=== PATIENT | male | born 1945 | race Caucasian/White ===

== ENCOUNTER → 2017-07-24 | Outpatient (CLI) | payer MEDICARE ==
[2017-07-24 10:29] LABS: CH 31.4; CHCM 32.5; HCT 46.2 % (39.0-53.0); HDW 2.47; HGB 15.7 gm/dL (13.0-17.5); MCV 96.9 fL (80.0-100.0); Mean Platelet Volume 7.5; RBC 4.77 m/uL (4.30-5.90); RDW 12.1 % (11.5-15.5); WBC 5.6 k/uL (3.8-10.6)
[2017-07-24 12:13] LABS: ALT 36 U/L (21-72); AST 22 U/L (17-59); Alkaline Phosphatase 64 U/L (38-126); Anion Gap 8 mmol/L; Blood Urea Nitrogen 16 mg/dL (9-20); Calcium 9.3 mg/dL (8.4-10.2); Carbon Dioxide 26 mmol/L (22-30); Chloride 104 mmol/L (98-107); Cholesterol 139 mg/dL (<200); Glucose 183 mg/dL (74-99); HDL Cholesterol 51 mg/dL (40-60); Non-African American GFR(MDRD) >60 (>60 ml/min/1.73 sqM); Potassium 4.9 mmol/L (3.5-5.1); Sodium 138 mmol/L (137-145); Total Bilirubin 0.6 mg/dL (0.2-1.3); Total Protein 6.5 g/dL (6.3-8.2)
[2017-07-24 12:41] LABS: Hemoglobin A1C 7.3 % (4.2-6.1)
[2017-07-24 16:40] LABS: Urine Creatinine 136.3 mg/dL
== END | disposition home or self-care (01) ==
LOC: LABWHC1 09:27
PROVIDERS: ATTEND Internal Medicine
DX: E78.5 Hyperlipidemia, unspecified (principal); E11.9 Type 2 diabetes mellitus without complications; C61 Malignant neoplasm of prostate
CPT/HCPCS: 36415; 80053; 80061; 82043; 82570; 83036; 84153; 85027

== ENCOUNTER → 2018-05-02 | Outpatient (CLI) | payer MEDICARE ==
--- NOTE | 2018-05-02 16:13 | CT ---
EXAMINATION TYPE: CT abdomen pelvis w con DATE OF EXAM: 05/02/2018 COMPARISON: 05/07/2016 and dictation without images for comparison of 10/25/2008. HISTORY: Patient has no complaints at time of study. Increased PSA. CT DLP: 1220.3 mGycm Automated exposure control for dose reduction was used. TECHNIQUE: Helical acquisition of images was performed from the lung bases through the pelvis. CONTRAST: Performed with Oral Contrast and with IV Contrast, patient injected with 100 mL of Isovue 300. FINDINGS: LUNG BASES: There multifocal areas of linear bandlike density at the lung bases that may represent ch ronic atelectasis or pleural parenchymal scarring. No suspicious pulmonary nodule at the lung bases. No focal consolidation. LIVER/GB: No new focal hepatic lesion or intrahepatic biliary ductal dilatation. Multiple layering ga llstones are seen dependently within the gallbladder body and neck. No intrahepatic or extrahepatic b iliary ductal dilatation. No pericholecystic fluid or right upper quadrant fat stranding. PANCREAS: Cystic pancreatic body lesion measuring 1.1 cm is unchanged in comparison to prior reports of 2008 and therefore most compatible with a benign etiology such as a side branch IPMN. There are fe w a grade hepatic parenchymal calcifications and mild pancreatic parenchymal atrophy on the basis of chronic pancreatitis. No peripancreatic fluid collection or peripancreatic fat stranding is seen. No abnormal pancreatic enhancement or ductal dilatation. SPLEEN: No splenomegaly or abnormal enhancement. Small benign splenule seen posterior and superior to the [place] spleen. ADRENALS: No nodularity or thickening is seen. KIDNEYS: The kidneys enhance and excrete symmetrically other than a fluid attenuated cortically-based left midpole 8mm renal cysts. Nonobstructing right lower pole 5 mm calculus and 2 mm left upper pole nonobstructing calculus are noted. There are few left renal sinus cysts and other scattered hypoatte nuated cortically based renal lesions that are too small to accurately characterize. No uroepithelial thickening is seen. FREE AIR: No pneumoperitoneum visualized. ADENOPATHY: The largest left superficial inguinal lymph node measures 1.1 cm in short axis and is un changed from the exam of 05/07/2016 containing a regular appearing fatty hilum, low index of suspicion . Multiple other left superficial inguinal lymph nodes are seen that are prominent but nonenlarged al so containing fatty sherri. No pelvic sidewall, external iliac chain, or internal iliac chain adenopath y are seen. No local adenopathy around the prosthetic bed. No suspicious periaortic adenopathy is see n. No mesenteric enlarged lymph nodes are noted. REPRODUCTIVE ORGANS: There is surgical absence of the prostate gland with numerous surgical sutures i n the prosthetic bed. No focal nodule is seen within the prostatic bed to suggest recurrence. There i s a small fat filled left inguinal hernia. URINARY BLADDER: There is very mild bilateral posterior wall urinary bladder thickening measuring up to 5 mm on the left and 4 mm on the right near the ureterovesicular junctions. These are marked on s eries 9 image 72. OSSEOUS STRUCTURES: Punctate sclerotic foci within the right iliac bone on series 3 image 112 and lef t anterior sacral ala are unchanged from the prior of 05/07/2016. Moderate degenerative changes of the femoral acetabular joints and mild multilevel degenerative changes of the thoracolumbar spine as vis ualized are noted without suspicious osseous lesion. There is a very mild levoscoliotic curvature of the lumbar spine that may be positional in nature. BOWEL: There is colonic wall thickening that is long segment of the sigmoid colon with numerous sigm oid diverticuli no pericolonic fat stranding. Findings likely and most commonly related to sequela of chronic diverticulitis. Appendix is contrast-filled and within normal limits. No dilated large or sm all bowel. OTHER: Calcific atheromatous changes of the abdominal aorta and its branches are moderate. IMPRESSION: 1. NO EVIDENCE OF SOFT TISSUE NODULARITY WITHIN THE PROSTHETIC BED TO INDICATE LOCAL RECURRENCE, NO R ETROPERITONEAL OR INTRA-ABDOMINAL/PELVIC ADENOPATHY. LARGEST LEFT SUPERFICIAL INGUINAL LYMPH NODE IS UNCHANGED FROM THE PRIOR EXAM AND CONTAINS A REGULAR FATTY SHERRI WITH LOW INDEX OF SUSPICION. 2. DEGENERATIVE CHANGES OF THE OSSEOUS STRUCTURES WITH NO SUSPICIOUS OSSEOUS LESION IDENTIFIED. 3. VERY MILD THICKENING WITHIN THE POSTERIOR URINARY BLADDER WALL NEAR THE URETEROVESICULAR JUNCTIONS . THIS COULD BE FURTHER EVALUATED WITH DIRECT VISUALIZATION IF THERE IS FURTHER CLINICAL CONCERN. 4. STABLE CYSTIC PANCREATIC NEOPLASM DATING BACK TO 2008, THEREFORE TYPICALLY BENIGN. 5. NONOBSTRUCTING NEPHROLITHIASIS.
--- NOTE | 2018-05-02 16:15 | NM ---
EXAMINATION TYPE: NM bone scan whole body DATE OF EXAM: 05/02/2018 COMPARISON: CT abdomen pelvis 05/02/2018 HISTORY: Prostate carcinoma Delayed whole-body scanning was performed following the injection of 23.8 mCi Tc 99m MDP. Images acq uired 3 hours post injection. FINDINGS: Soft tissue uptake is normal. Uptake within the feet, ankles, knees, shoulders, sternoclavicular join ts is likely degenerative. No areas of abnormal increased or decreased radiopharmaceutical uptake to suggest metastatic disease. IMPRESSION: Degenerative changes.
== END | disposition home or self-care (01) ==
LOC: RADNMMAIN 11:12
PROVIDERS: ATTEND Urology
DX: C61 Malignant neoplasm of prostate (principal); M47.9 Spondylosis, unspecified; N32.89 Other specified disorders of bladder; D13.6 Benign neoplasm of pancreas; N20.0 Calculus of kidney
CPT/HCPCS: 74177; 36415; 78306; A9503; Q9967

== ENCOUNTER → 2018-05-02 | Outpatient (CLI) | payer MEDICARE ==
[2018-05-02 11:31] LABS: Anion Gap 8 mmol/L; Blood Urea Nitrogen 24 mg/dL (9-20); Calcium 9.6 mg/dL (8.4-10.2); Carbon Dioxide 26 mmol/L (22-30); Chloride 106 mmol/L (98-107); Glucose 196 mg/dL (74-99); Potassium 4.7 mmol/L (3.5-5.1); Sodium 140 mmol/L (137-145)
[2018-05-02 12:01] LABS: Prostate Specific Antigen 0.33 ng/mL (0.00-4.00)
[2018-05-02 18:48] LABS: Hemoglobin A1C 7.6 % (4.0-6.0)
== END | disposition home or self-care (01) ==
LOC: LABWHC1 10:48
PROVIDERS: ATTEND Internal Medicine
DX: C61 Malignant neoplasm of prostate (principal); E11.9 Type 2 diabetes mellitus without complications
CPT/HCPCS: 36415; 80048; 83036; 84153

== ENCOUNTER → 2018-10-29 | Outpatient (CLI) | payer MEDICARE ==
[2018-10-29 14:49] LABS: Blood Urea Nitrogen 26 mg/dL (9-20)
--- NOTE | 2018-10-29 21:52 | CT ---
EXAMINATION TYPE: CT abdomen pelvis w con DATE OF EXAM: 10/29/2018 COMPARISON: 05/02/2018 and 05/07/2016 HISTORY: 73-year-old male abnormal prior CT TECHNIQUE: Contiguous axial scanning of the abdomen and pelvis following administration of 100 ml Omn ipaque 300 IV contrast. 4 minute and 10 minute delayed images were acquired. Coronal/sagittal recons tructions performed. 3-D reconstruction generated on a dedicated independent workstation. CT DLP: 1839.6 mGycm Automated exposure control for dose reduction was used. FINDINGS: Heart upper limits of normal in size without pericardial effusion. Bands of atelectasis at the lung b ases. No pleural effusion. Liver enlarged measuring 21.5 cm. No focal lesion seen. Portal venous system is patent. Large caliber to the main portal vein and right 1.9 cm of questionable clinical significance. This finding can be seen in the setting of portal venous hypertension. No biliary ductal dilatation. Adrenal glands and spleen appear within normal limits. Numerous tiny calculi layering in the gallbladder. No abnormal gallbladder distention. Redemonstrated 1 cm cystic lesion within the pancreatic neck region, previously measuring 8 mm. It is noted to have measured 1.1 cm on 05/07/2016. Pancreas otherwise shows no gross abnormal. Tiny punctate nonobstructive calculi in both kidneys, approximately 3 on the right measuring up to 5 mm and one on the left measuring 4 mm. Subcentimeter hypodensities in both kidneys redemonstrated, too small for accurate CT characterizatio n, likely cysts. Additional left-sided parapelvic cysts are present. No suspicious filling defects seen within the collecting systems and no suspicious renal lesion ident ified. A short segment of the distal right and left ureters are not opacified. The remainder of the u reters show no suspicious filling defects. No dilated small bowel, free fluid, or free air. No mesenteric or retroperitoneal lymphadenopathy. Mo derate apical scarring calcifications within the abdominal aorta without aneurysm. Normal appendix. Mild stool burden. Lower descending and sigmoid colonic diverticulosis. No pericolon ic inflammatory change. Patulous left inguinal canal redemonstrated. Post surgical changes of prostatectomy and some surgical clips along the external iliac chains from p rior lymph node dissection. No suspicious nodularity in the region of prostatectomy to suggest local recurrence. No pelvic lymphadenopathy or abnormal fluid collection in the pelvis. Prominent left inguinal lymph n ode measures up to 1.2 cm and continues to show fatty hilum. Bones: Mild degenerative changes at the hips. Facet arthropathy lower lumbar spine. Endplate spondylo sis lower thoracic spine. IMPRESSION: 1. STATUS POST PROSTATECTOMY AND SOME SURGICAL CLIPS ALONG THE EXTERNAL ILIAC CHAINS. NO EVIDENCE FOR LOCOREGIONAL RECURRENCE OR SUSPICIOUS LYMPHADENOPATHY OR OSSEOUS LESIONS TO SUGGEST METASTATIC DISEA SE. 2. 1 CM CYSTIC PANCREATIC NECK LESION LARGELY UNCHANGED BACK TO AT LEAST 2016 COMPATIBLE WITH A BENIG N ETIOLOGY. 3. LEFT-SIDED COLONIC DIVERTICULOSIS WITHOUT ACUTE DIVERTICULITIS. HEPATOMEGALY (21.5 CM). CHOLELITHI ASIS. 4. BILATERAL NEPHROLITHIASIS MEASURING UP TO 5 MM. HYPODENSE LESIONS IN BOTH KIDNEYS MEASURING LESS T YAO 1 CM AND ARE TOO SMALL FOR ACCURATE CT CHARACTERIZATION, LIKELY CYSTS. 5. NO SUSPICIOUS RENAL LESION OR SUSPICIOUS FILLING DEFECT ALONG THE COLLECTING SYSTEMS/URETERS. SEGM ENTS OF THE DISTAL MOST URETERS REMAIN UNOPACIFIED LIMITING THEIR ASSESSMENT. NO OBVIOUS ABNORMALITY SEEN.
== END | disposition home or self-care (01) ==
LOC: RADCTMAIN 14:01
PROVIDERS: ATTEND Urology
DX: N20.0 Calculus of kidney (principal); K80.20 Calculus of gallbladder without cholecystitis without obstruction; K57.30 Diverticulosis of large intestine without perforation or abscess without bleeding; N28.89 Other specified disorders of kidney and ureter; R16.0 Hepatomegaly, not elsewhere classified; K86.2 Cyst of pancreas; Z90.79 Acquired absence of other genital organ(s); Z88.1 Allergy status to other antibiotic agents; Z88.8 Allergy status to other drugs, medicaments and biological substances
CPT/HCPCS: 82565; 84520; 74177; Q9967

== ENCOUNTER → 2020-02-25 | Outpatient (CLI) | payer MEDICARE ==
--- NOTE | 2020-02-25 13:12 | CT ---
EXAMINATION TYPE: CT brain wo con DATE OF EXAM: 02/25/2020 HISTORY: recent suspected Cerebral infarction unspecified, new onset ataxia. CT DLP: 862.5 mGycm. Automated Exposure Control for Dose Reduction was Utilized. TECHNIQUE: CT scan of the head is performed without contrast. COMPARISON: None. FINDINGS: There is no acute intracranial hemorrhage or midline shift identified. There is diffuse v entricular and sulcal prominence consistent with diffuse cerebral atrophy. Ventricular prominence sli ghtly out of proportion to degree of sulcal effacement, cannot exclude underlying normal pressure hyd rocephalus. Correlation with old outside CT or MRI would be beneficial. There is low-attenuation in the deep and periventricular white matter consistent with chronic small vessel ischemic change. The globes are intact and the visualized sinuses are clear. IMPRESSION: No acute intracranial hemorrhage or midline shift. There is mild diffuse cerebral atrop hy and mild to moderate chronic small vessel ischemic change noted. If clinical concern for acute st roke persist further investigation with MRI study may BE warranted.
--- NOTE | 2020-02-25 13:52 | US ---
EXAMINATION TYPE: US carotid duplex BILAT DATE OF EXAM: 02/25/2020 COMPARISON: NONE CLINICAL HISTORY: I63.9 Cerebral infarction unspecified. EXAM MEASUREMENTS: RIGHT: Peak Systolic Velocity (PSV) cm/sec ----- Right CCA: 72 ----- Right ICA: 72 ----- Right ECA: 97 ICA/CCA ratio: 1.0 RIGHT: End Diastole cm/sec ----- Right CCA: 8 ----- Right ICA: 13 ----- Right ECA: 10 LEFT: Peak Systolic Velocity (PSV) cm/sec ----- Left CCA: 79 ----- Left ICA: 85 ----- Left ECA: 122 ICA/CCA ratio: 1.1 LEFT: End Diastole cm/sec ----- Left CCA: 11 ----- Left ICA: 18 ----- Left ECA: 10 VERTEBRALS (direction of flow): Right Vertebral: Antegrade Left Vertebral: Antegrade Rhythm: Normal No significant stenosis seen, mild to moderate plaque. ICA's dive at 90 degree angle. Technically dif ficult. Suboptimal study due to tortuosity of carotid vessels per technologist. Grayscale images show mild to moderate peripheral plaque centered near bilateral carotid bulbs greatest on the left. Velocity krysta urements and ratios in the visualized portion of both internal carotid arteries is felt within normal limits. IMPRESSION: Suboptimal study without convincing ultrasound evidence for hemodynamically significant stenosis in either internal carotid artery area Criteria for Assigning % of Stenosis / Diameter reduction (Estimation based on the indirect measurements of the internal carotid artery velocities (ICA PSV). 1. Normal (no stenosis)=ICA PSV < 125 cm/s: ratio < 2.0: ICA EDV<40 cm/s. 2. Less than 50% stenosis=ICA PSV < 125 cm/s: ratio < 2.0: ICA EDV<40 cm/s. 3. 50 to 69% stenosis=ICA PSV of 125 to 230 cm/s: ration 2.0 ? 4.0: ICA EDV 40-100 cm/s. 4. Greater than 70% stenosis to near occlusion= ICA PSV > 230 cm/s: ratio > 4.0: ICA EDV > 100 cm/s. 5. Near occlusion= ICA PSV velocities may be low or undetectable: variable ratio and ICA EDV. 6. Total occlusion=unable to detect flow.
== END | disposition home or self-care (01) ==
LOC: RADCTMAIN 12:19
PROVIDERS: ATTEND Internal Medicine
DX: G31.1 Senile degeneration of brain, not elsewhere classified (principal); I63.9 Cerebral infarction, unspecified
CPT/HCPCS: 70450; 93880

== ENCOUNTER → 2020-03-04 | Outpatient (CLI) | payer MEDICARE ==
--- NOTE | 2020-03-22 16:38 | EM ---
EVENT MONITOR FOURTEEN-DAY EVENT MONITOR: This study was conducted between 03/04/2020 and 03/18/2020. It shows normal sinus rhythm. There were episodes of sinus tachycardia. Frequent PVCs, including ventricular bigeminy and trigeminy, are also noted. There were non-conducted PACs noted. There was first-degree AV block. There were episodes of sinus bradycardia. There was second- degree AV block of Wenckebach type. CONCLUSIONS: Event monitor shows normal sinus rhythm, frequent ventricular ectopy, significant sinus bradycardia, non-conducted PACs and second-degree heart block. MMODL / IJN: [id number] /
== END | disposition home or self-care (01) ==
LOC: RADECHMAIN 11:54
PROVIDERS: ATTEND Internal Medicine
DX: R00.1 Bradycardia, unspecified (principal); I44.1 Atrioventricular block, second degree; I63.9 Cerebral infarction, unspecified
CPT/HCPCS: 93270

== ENCOUNTER 2020-04-06 06:05 | Day surgery (SDC) | payer MEDICARE, OTHER ==
[2020-04-05 11:55] VITALS: BMI 27.8
[~2020-04-06 06:05] MED LIST: Pre Op ABX Message 1 EACH MISC MISCELLANE ONE; TETRACAINE 0.5% OPHTH (PF) DROPS 4 ML BTL OP ONE
[2020-04-06 06:43] VITALS: TEMP 97.8
[2020-04-06] MEDS: CYCLOPENTOLATE 1% OPHTH SOLN 2 ML BTL OP ONE ×3 (06:44→07:05)
[2020-04-06] MEDS: PHENYLEPHRINE 2.5% OPHTH DRP 2ML OP NR ×3 (06:49→07:09)
[2020-04-06 07:04] LABS: Glucose,Whole Blood 178 mg/dL (75-99)
[2020-04-06] MEDS: LACTATED RINGERS 1,000 ML IV SCH ×2 (07:06→07:33)
[2020-04-06] MEDS ORDERED: MIDAZOLAM 2 MG/2 ML VIAL IVP ONE (07:21)
[2020-04-06] MEDS ORDERED: MIDAZOLAM 2 MG/2 ML VIAL ONE (07:30)
[2020-04-06] MEDS ORDERED: fentaNYL (PF) 50 MCG/ML 2 ML AMP ONE (07:30)
[2020-04-06] MEDS ORDERED: BALANCED SALT IRRIG SOLN COMB2 15 ML IRRIG.SOLN IRRIGATION ONE ×2 (07:34→07:53)
[2020-04-06] MEDS ORDERED: LIDOCAINE 1% (PF) 10MG/ML VIAL MISCELLANE ONE ×2 (07:34→07:53)
[2020-04-06] MEDS ORDERED: DUOVISC KIT (GREEN BOX) INTRAOCULA ONE ×2 (07:42→07:53)
[2020-04-06] MEDS ORDERED: TRYPAN BLUE 0.06% SYRINGE 0.5 ML SYRINGE INTRAOCULA ONE ×3 (07:43→08:06)
[2020-04-06] MEDS ORDERED: EPINEPHrine (PF) 0.3 ML in BALANCED SALT IRRIG SOLN COMB2 500 ML IRRIGATION ONE (07:56)
[2020-04-06] MEDS: TOBRAMYCIN 0.3% OPHTH DROPS 5 ML BTL RIGHT EYE PRN ×3 (08:06→08:27)
[2020-04-06] MEDS: TIMOLOL 0.5% OPHTH DROPS 5 ML BTL OP ONE ×3 (08:07→08:27)
[2020-04-06] MEDS ORDERED: ATROPINE OPHTH SOLN 1% 5ML BTL RIGHT EYE ONE (08:14)
[2020-04-06] MEDS ORDERED: HYALURONATE SODIUM INTRAOCULAR 1 EACH SYRINGE (10MG/ML) INTRAOCULA ONE (08:17)
--- NOTE | 2020-04-06 08:29 | P.OP ---
Date of Procedure: 04/06/20 Preoperative Diagnosis: NS & CS & glaucoma & reg astigmatism Postoperative Diagnosis: same Procedure(s) Performed: PIOL & iStent Implants: [id number] & iStent Anesthesia: MAC Surgeon: Dillon Mcqueen Estimated Blood Loss (ml): 0 Pathology: none sent Condition: stable Disposition: same day Indications for Procedure: blurry vision and glaucoma Operative Findings: No complications
[2020-04-06 08:38] VITALS: RESP 16
[2020-04-06 08:49] VITALS: BP 150/80; PULSE 59
--- NOTE | 2020-04-07 10:35 | OP ---
OPERATIVE REPORT DATE OF SURGERY: April 06, 2020. PROCEDURE: Phacoemulsification of cataract and intraocular lens implant of the right eye with eye stent implantation, right eye. PREOPERATIVE DIAGNOSES: Nuclear sclerosis cortical sclerosis, regular astigmatism and primary open-angle glaucoma mild stage. SURGEON: Dr. Dillon Mcqueen. ANESTHESIA: MAC. ESTIMATED BLOOD LOSS: 0.5 mL. SPECIMEN: Taken none. NARRATIVE: After obtaining the appropriate consent, the patient was brought to the operating room. There he was asked to sit upright and the axis 0 and 180 degrees were identified and marked with a gentian mason marker. He was then placed in the proper supine position under cardiac monitoring and then prepped and draped in the usual sterile manner. He was approached from his right temporal side. Using previously acquired corneal topography information, the axis of 162 degrees was identified and marked with a corneal marking instrument. At the 11 o'clock position, a 1.1 mm MVR blade was used to create a paracentesis port. Through this opening 1% Xylocaine MPF 50 50 mix of balanced salt solution was injected into the anterior chamber. This was followed by installation of Trypan blue which was allowed to stay in the eye for approximately 1 minute. This was irrigated away with balanced salt solution and the anterior chamber was then stabilized using Viscoat. At the 9 o'clock position, a 2.75 mm martina keratome was used to create a self-sealing corneal flap incision in a Langerman's fashion. The patient was then asked to rotate his head approximately 45 degrees to his left and a gonio prism was placed on the patient's cornea. Identification of the trabecular meshwork was easily made due to the Trypan blue and a glaucous model GTS [id number] L eye stent was advanced across the anterior chamber and imbedded into the Schlemm's canal. The patient was then returned to the normal supine position. Additional Viscoat was used to stabilize the capsular bag. A 5.5 mm Bandar ring was used to place a nathaly on the patient's cornea centered over the Purkinje reflex. A cystotome was then introduced to begin a continuous tear capsulorrhexis which was completed using the Utrata forceps. Care was taken to ensure that the size of the rhexis was at least the size of the nathaly placed on the patient's cornea. Hydrodissection and hydrodelineation of the lens were accomplished with balanced salt solution. Phacoemulsification of the lens utilizing phaco chop was accomplished in 18.57 seconds at 18% power. Additional Xylocaine MPF was instilled into the anterior chamber. This was followed by removal of the remaining cortex under irrigation aspiration as well as careful polishing of the posterior capsule in capsule vacuum mode. Provisc was then used to stabilize the capsular bag and using both Jeff Davis and Pepose capsule polishing instruments were introduced to remove as much of the remaining lens material from the equator and the anterior leaflets of the capsular bag. Once this was accomplished, the temporal incision was enlarged slightly with a martina keratome and a Bausch [employer] Lomb [id number] true line intraocular lens of 17 diopters by 1.25 diopters was inserted into the capsular bag without difficulty. The lens was spun approximately 270 degrees to ensure no remaining lens tissue was present and was finally aligned with the previously aligned gary of the 162 degree axis placed at the beginning of the case. All remaining viscoelastic was removed from in and around the intra-ocular lens and the body of the lens was tamponade against the posterior capsule to ensure rotational stability. The eye was then brought to normal intraocular pressure through the paracentesis port and the incisions were confirmed watertight and dried with a Weck-shay sponge and secured with ReSure over both wounds. He then received 2 drops of 0.5% timolol, 2 drops of tobramycin 0.3% and 1% atropine. He was then lightly patched and shielded in the usual manner. There were no complications from the procedure. He tolerated the procedure well, was returned to outpatient recovery in good condition. MMMADDI / IJN: [id number] / CHRISTOPHER
== END 2020-04-06 09:11 | disposition home or self-care (01) ==
LOC: OR 06:05
PROVIDERS: ATTEND Ophthalmology
DX: H25.13 Age-related nuclear cataract, bilateral (principal); H25.013 Cortical age-related cataract, bilateral; H40.1331 Pigmentary glaucoma, bilateral, mild stage; H35.3131 Nonexudative age-related macular degeneration, bilateral, early dry stage; H40.001 Preglaucoma, unspecified, right eye; H21.233 Degeneration of iris (pigmentary), bilateral; H52.13 Myopia, bilateral; H52.4 Presbyopia; H52.229 Regular astigmatism, unspecified eye; E11.9 Type 2 diabetes mellitus without complications; I10 Essential (primary) hypertension; M19.90 Unspecified osteoarthritis, unspecified site; I69.354 Hemiplegia and hemiparesis following cerebral infarction affecting left non-dominant side; E78.00 Pure hypercholesterolemia, unspecified; Z85.46 Personal history of malignant neoplasm of prostate; Z87.891 Personal history of nicotine dependence; Z97.3 Presence of spectacles and contact lenses; Z79.82 Long term (current) use of aspirin; Z79.84 Long term (current) use of oral hypoglycemic drugs; Z79.899 Other long term (current) drug therapy; Z88.1 Allergy status to other antibiotic agents; Z88.8 Allergy status to other drugs, medicaments and biological substances; Z90.89 Acquired absence of other organs; Z98.890 Other specified postprocedural states; Z87.442 Personal history of urinary calculi; Z83.518 Family history of other specified eye disorder; Z80.0 Family history of malignant neoplasm of digestive organs; Z83.3 Family history of diabetes mellitus; Z82.49 Family history of ischemic heart disease and other diseases of the circulatory system; Z82.3 Family history of stroke
CPT/HCPCS: 0191T; 66984

== ENCOUNTER → 2020-07-28 | Outpatient (CLI) | payer MEDICARE ==
[2020-07-28 08:08] LABS: HCT 46.3 % (39.0-53.0); HGB 15.7 gm/dL (13.0-17.5); MCH 32.8 pg (25.0-35.0); MCHC 33.9 g/dL (31.0-37.0); MCV 96.7 fL (80.0-100.0); Mean Platelet Volume 8.2; Platelet Count 199 k/uL (150-450); RBC 4.79 m/uL (4.30-5.90); RDW 12.1 % (11.5-15.5); WBC 5.4 k/uL (3.8-10.6)
[2020-07-28 08:19] LABS: Appearance,Urine Clear (Clear); Bilirubin,Urine Negative (Negative); Blood,Urine Negative (Negative); Color,Urine Light Yellow; Glucose,Urine (UA) Negative (Negative); Ketones,Urine Negative (Negative); Leukocyte Esterase,Urine Negative (Negative); Nitrite,Urine Negative (Negative); Protein,Urine Negative (Negative); Specific Gravity,Urine 1.006 (1.001-1.035); Urobilinogen,Urine <2.0 mg/dL (<2.0)
[2020-07-28 11:35] LABS: African American GFR (CKD) 96.5 (60.0-200.0); Albumin 4.4 g/dL (3.80-4.90); Albumin/Globulin Ratio 2.1 (1.60-3.17); Anion Gap 9.4 mmol/L (4.00-12.00); BUN/Creat Ratio 23.33 Ratio (12.00-20.00); Calcium 9.6 mg/dL (8.7-10.3); Carbon Dioxide 26.6 mmol/L (21.6-31.8); Globulin 2.1 g/dL (1.6-3.3); Non-African American GFR(CKD) 83.3 (60.0-200.0); Potassium 4.5 mmol/L (3.5-5.5); Prostate Specific Antigen 0.5 ng/mL (0.0-6.5); Total Bilirubin 0.7 mg/dL (0.2-1.2); Total Protein 6.5 g/dL (6.2-8.2)
[2020-07-28 18:02] LABS: Hemoglobin A1C 6.9 % (4.0-6.0)
== END | disposition home or self-care (01) ==
LOC: LABWHC1 07:25
PROVIDERS: ATTEND Internal Medicine
DX: I10 Essential (primary) hypertension (principal); E11.9 Type 2 diabetes mellitus without complications; C61 Malignant neoplasm of prostate; E78.5 Hyperlipidemia, unspecified
CPT/HCPCS: 36415; 80053; 81003; 83036; 84153; 84443; 85027

== ENCOUNTER → 2020-08-11 | Outpatient (CLI) | payer MEDICARE ==
[2020-08-11 22:52] LABS: Chol/HDL Ratio 2.87; LDL Cholesterol,Calculated 99.4 mg/dL (0.0-131.0); VLDL Calculation 12.6 mg/dL (5.00-40.00)
== END | disposition home or self-care (01) ==
LOC: LABWHC1 11:21
PROVIDERS: ATTEND Internal Medicine
DX: E78.5 Hyperlipidemia, unspecified (principal); E11.9 Type 2 diabetes mellitus without complications
CPT/HCPCS: 36415; 80061

== ENCOUNTER → 2020-12-20 | Outpatient (CLI) | payer MEDICARE, OTHER | END | disposition home or self-care (01) | LOC: LABWHC1 07:30 | PROVIDERS: ATTEND Internal Medicine | DX: Z01.812 Encounter for preprocedural laboratory examination (principal); Z20.822 Contact with and (suspected) exposure to COVID-19 | CPT/HCPCS: U0003; C9803; U0005 ==

== ENCOUNTER → 2021-08-18 | Outpatient (CLI) | payer MEDICARE ==
[2021-08-18 11:10] LABS: Appearance,Urine Clear (Clear); Bilirubin,Urine Negative (Negative); Blood,Urine Negative (Negative); Color,Urine Yellow; Glucose,Urine (UA) Negative (Negative); Hyaline Casts,Urine 1 /lpf (0-2); Ketones,Urine Negative (Negative); Leukocyte Esterase,Urine Negative (Negative); Mucus,Urine Rare /hpf; Nitrite,Urine Negative (Negative); PH, Urine 5.5 (5.0-8.0); Protein,Urine 1+ (Negative); RBC,Urine <1 /hpf (0-5); Specific Gravity,Urine 1.023 (1.001-1.035); Urobilinogen,Urine <2.0 mg/dL (<2.0)
[2021-08-18 16:38] LABS: HCT 45.2 % (39.6-50.0); HGB 14.6 g/dL (13.0-17.0); MCH 31.7 pg (27.0-32.0); MCHC 32.3 g/dL (32.0-37.0); Platelet Count 193 X 10*3/uL (140-440); RBC 4.61 X 10*6/uL (4.40-5.60); RDW 12.2 % (11.5-14.5); WBC 4.75 X 10*3/uL (4.50-10.00)
[2021-08-18 17:53] LABS: African American GFR (CKD) 100.6 (60.0-200.0); Albumin 4.4 g/dL (3.8-4.9); Albumin/Globulin Ratio 2.1 (1.60-3.17); Anion Gap 11.1 mmol/L (4.00-12.00); BUN/Creat Ratio 20.5 Ratio (12.00-20.00); Blood Urea Nitrogen 16.4 mg/dL (9.0-27.0); Calcium 9.3 mg/dL (8.7-10.3); Carbon Dioxide 25.9 mmol/L (21.6-31.8); Chol/HDL Ratio 2.65 Ratio; Globulin 2.1 g/dL (1.6-3.3); HDL Cholesterol 59.9 mg/dL (40.00-60.00); LDL Cholesterol,Calculated 86.5 mg/dL (0.0-131.0); Non-African American GFR(CKD) 86.8 (60.0-200.0); Potassium 4.5 mmol/L (3.5-5.5); Prostate Specific Antigen 0.5 ng/mL (0.00-6.50); Total Bilirubin 0.4 mg/dL (0.30-1.20); Total Protein 6.5 g/dL (6.2-8.2); Triglycerides 62.9 mg/dL (0.00-149.00); VLDL Calculation 12.58 mg/dL (5.00-40.00)
== END | disposition home or self-care (01) ==
LOC: LABWHC1 09:06
PROVIDERS: ATTEND Internal Medicine
DX: C61 Malignant neoplasm of prostate (principal); E11.9 Type 2 diabetes mellitus without complications; E78.5 Hyperlipidemia, unspecified
CPT/HCPCS: 36415; 80053; 80061; 81001; 82043; 82570; 83036; 84153; 85027

== ENCOUNTER 2022-06-22 10:55 | Inpatient (IN) | payer MEDICARE ==
--- NOTE | 2022-06-22 11:14 | ED ---
General Adult HPI - General Chief complaint: Dizziness Stated complaint: dizziness,facial numbness Time Seen by Provider: 06/22/22 11:04 Source: patient, RN notes reviewed, old records reviewed Mode of arrival: ambulatory Limitations: no limitations - History of Present Illness Initial comments: 77-year-old male history of previous CVA presenting for evaluation of dizziness, lightheadedness and low heart rate. Patient states that yesterday he noted that his heart rate was in the 30s. He had seen his primary care provider and EKG performed which showed normal sinus rhythm according to the patient. No associated chest pain, the patient states she's had intermittent symptoms for about one week. No prior history of cardiac disease. - Related Data Home Medications Medication Instructions Recorded Confirmed Atorvastatin [Lipitor] 20 mg PO DAILY 05/23/16 04/06/20 Enalapril [Vasotec] 20 mg PO DAILY 05/23/16 04/06/20 Pioglitazone HCl [Actos] 15 mg PO HS 05/23/16 04/06/20 allopurinoL [Zyloprim] 100 mg PO DAILY 05/23/16 04/06/20 Aspirin [Adult Low Dose Aspirin EC] 81 mg PO DAILY 04/05/20 04/06/20 Clopidogrel [Plavix] 75 mg PO DAILY 04/05/20 04/06/20 Occuvite 1 cap PO BID 04/05/20 04/06/20 amLODIPine BESYLATE 10 mg PO HS 04/05/20 04/06/20 metFORMIN HCL [Glucophage] 1,000 mg PO BID 04/05/20 04/06/20 Allergies Allergy/AdvReac Type Severity Reaction Status Date / Time levofloxacin [From Levaquin] Allergy Dyspnea Verified 06/22/22 11:02 mefloquine HCl [From Lariam] Allergy NIGHTMARES Verified 06/22/22 11:02 ofloxacin [From Floxin] Allergy JOINT PAIN Verified 06/22/22 11:02 OMANI PEPPERS Allergy Dyspnea,STR Uncoded 06/22/22 11:02 IDOR Review of Systems ROS Statement: Those systems with pertinent positive or pertinent negative responses have been documented in the HPI. ROS Other: All systems not noted in ROS Statement are negative. Past Medical History Past Medical History: Cancer, CVA/TIA, Diabetes Mellitus, Hypertension, Osteoarthritis (OA), Prostate Disorder Additional Past Medical History / Comment(s): PROSTATE CANCER, KIDNEY STONE History of Any Multi-Drug Resistant Organisms: None Reported Past Surgical History: Adenoidectomy, Orthopedic Surgery, Tonsillectomy Additional Past Surgical History / Comment(s): PROSTATE SURGERY, LEFT KNEE ARTHROSCOPIC Past Anesthesia/Blood Transfusion Reactions: No Reported Reaction Past Psychological History: No Psychological Hx Reported Smoking Status: Current every day smoker, Current some day smoker Past Alcohol Use History: Occasional Past Drug Use History: None Reported - Past Family History Mother Family Medical History: No Reported History General Exam Limitations: no limitations General appearance: alert, in no apparent distress Head exam: Present: atraumatic, normocephalic Eye exam: Present: normal appearance, PERRL ENT exam: Present: normal exam Neck exam: Present: normal inspection. Absent: tenderness, meningismus Respiratory exam: Present: normal lung sounds bilaterally. Absent: respiratory distress, wheezes Cardiovascular Exam: Present: normal rhythm, bradycardia GI/Abdominal exam: Present: soft. Absent: distended, tenderness, guarding Extremities exam: Present: pedal edema Neurological exam: Present: alert, oriented X3, CN II-XII intact Psychiatric exam: Present: normal affect, normal mood Skin exam: Present: warm, dry, intact. Absent: cyanosis Course Vital Signs 06/22/22 10:58 Temperature 98 F Pulse Rate 40 L Respiratory 20 Rate Blood Pressure 207/88 O2 Sat by Pulse 98 Oximetry EKG Findings - EKG Comments: EKG Findings:: EKG: Sinus rhythm first-degree AV block with bigeminy PVC ve ntricular rate of 76, actual rate of 40, UT is prolonged at 272, QRS duration 145, QTC 391 Medical Decision Making - Medical Decision Making 77-year-old male with dizziness, found to be in high-grade heart block, intermittent with sinus rhythm with first-degree AV block. Patient is immediately evaluated by Dr. Corrales in the emergency department. He remains alert with stable but elevated blood pressure. Laboratory testing including lites lites are pending. Dr. Corrales does recommend atropine and dopamine which are administered in the emergency department. He'll be taken urgently to the [facility] for either temporary or permanent pacemaker. Case discussed with Dr. Liriano who will admit and the engineering director Dr. Goss. Critical Care Time Critical Care Time: Yes Total Critical Care Time: 35 Disposition Clinical Impression: Heart block AV complete Disposition: ADMITTED IP TO THIS HOSP Condition: Serious Is patient prescribed a controlled substance at d/c from ED?: No Referrals: Marcelo Chavez III, MD [Primary Care Provider] - 1-2 days Time of Disposition: 11:36
[2022-06-22] MEDS ORDERED: DOPamine DRIP 800 MG in DEXTROSE/WATER 1 250ML.BAG IV ONE (11:21)
[2022-06-22] MEDS ORDERED: NALOXONE 0.4 MG/ML 1 ML VIAL IV PRN (11:26)
[2022-06-22] MEDS ORDERED: ATROPINE SULFATE 0.1 MG/ML 10ML SYRINGE IV STA (11:34)
[2022-06-22] MEDS: SODIUM CHLORIDE 0.9% 1,000 ML IV SCH (11:36)
[2022-06-22 11:45] LABS: Basophils # (A) 0.1 k/uL (0-0.2); Basophils % (A) 1 %; Eosinophils # (A) 0.1 k/uL (0-0.7); Eosinophils % (A) 2 %; HCT 45.6 % (39.0-53.0); HGB 14.7 gm/dL (13.0-17.5); Lymphocytes # (A) 1.5 k/uL (1.0-4.8); Lymphocytes % (A) 24 %; MCH 31.6 pg (25.0-35.0); MCHC 32.3 g/dL (31.0-37.0); MCV 97.8 fL (80.0-100.0); Mean Platelet Volume 8.9; Monocytes # (A) 0.4 k/uL (0-1.0); Monocytes % (A) 6 %; Neutrophils % (A) 65 %; Platelet Count 206 k/uL (150-450); RBC 4.66 m/uL (4.30-5.90); RDW 12.6 % (11.5-15.5); WBC 6.1 k/uL (3.8-10.6)
[2022-06-22 11:57] LABS: INR 0.9 (<1.2); Prothrombin Time 10.2 sec (9.0-12.0)
[2022-06-22 11:59] LABS: Albumin 4.5 g/dL (3.5-5.0); Calcium 9.3 mg/dL (8.4-10.2); Magnesium 1.9 mg/dL (1.6-2.3); Potassium 5.1 mmol/L (3.5-5.1); Total Bilirubin 0.7 mg/dL (0.2-1.3); Total Protein 6.9 g/dL (6.3-8.2)
[2022-06-22] MEDS ORDERED: fentaNYL (PF) 50 MCG/ML 2 ML AMP ONE (12:00)
[2022-06-22] MEDS ORDERED: LIDOCAINE 1% INJ 10MG/ML (30 ML VIAL-PF) SQ ONE ×2 (12:17→20:49)
[2022-06-22] MEDS ORDERED: MIDAZOLAM 2 MG/2 ML VIAL IV ONE ×2 (12:17→20:47)
[2022-06-22] MEDS ORDERED: fentaNYL (PF) 50 MCG/ML 2 ML AMP IV ONE (12:17)
[2022-06-22] MEDS ORDERED: SODIUM CHLORIDE 0.9% 1,000 ML IV ONE (12:18)
[2022-06-22 12:57] LABS: Glucose,Whole Blood 197 mg/dL (70-110)
--- NOTE | 2022-06-22 14:24 | XR ---
EXAMINATION TYPE: XR chest 1V portable DATE OF EXAM: 06/22/2022 COMPARISON: None INDICATION: Dysrhythmia numb, chest pain TECHNIQUE: Single frontal view of the chest is obtained. FINDINGS: The heart size is normal. The pulmonary vasculature is normal. The lungs are clear. IMPRESSION: 1. No acute pulmonary process.
--- NOTE | 2022-06-22 14:38 | P.CNPUL ---
History of Present Illness Consult date: 06/22/22 Requesting physician: Sofi Chaivs Reason for consult: other (Critical care management) Chief complaint: Dizziness nausea numbness History of present illness: Visit very pleasant 77-year-old male patient who follows with Dr. Chavez is his primary care provider. 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 He had been having issues with dizziness and lightheadedness and had been seen by his PCP in no significant findings were noted. Today however he had a significant episode of dizziness with some nausea and some oral circumferential numbness while at home. His daughter was present at the time. He was brought into the emergency room for the same. He was found to be in complete heart block and was subsequently taken to the CV and a temporary right femoral pacemaker was placed. He is set to backup pacing at 50. He was transferred to the intensive care unit for closer observation. The plan is for permanent pacemaker implantation later this evening. He is currently laying flat in bed. Awake and alert in no acute distress. Denies any dizziness, lightheadedness, nausea or chest pain. No palpitations. He is pacing quite often. He has underlying complete heart block still. He is maintaining good O2 saturations in the 90s on room air. He's been afebrile. Chest x-ray revealed no acute pulmonary process. White count 6.1. Hemoglobin 14.7. Sodium 138. Potassium 5.1. BUN 23. Creatinine 1.06. Glucose 173. AST 32. ALT 46. TSH 3.04. Magnesium 1.9. He remains nothing by mouth. He has normal saline at 75 ML's per hour. Review of Systems REVIEW OF SYSTEMS: CONSTITUTIONAL: Denies any recent significant weight loss or weight gain. EYES: Denies change in vision. EARS, NOSE, MOUTH, THROAT: Denies headaches, denies sore throat. CARDIOVASCULAR: Positive for dizziness, nausea, oral circumferential tingling and numbness. RESPIRATORY: Denies shortness of breath, cough, congestion or hemoptysis. GASTROINTESTINAL: Denies change in appetite, denies abdominal pain GENITOURINARY: Denies hematuria, denies infections. MUSKULOSKELETAL: Denies pain, denies swelling. INTEGUMENTARY: Denies rash, denies eczema. NEUROLOGICAL: Denies recent memory loss, no recent seizure activity. PSYCHIATRIC: Denies anxiety, denies depression. HEMATOLOGIC/LYMPHATIC: Denies anemia, denies enlarged lymph nodes. Past Medical History Past Medical History: Cancer, CVA/TIA, Diabetes Mellitus, Hypertension, Osteoarthritis (OA), Prostate Disorder Additional Past Medical History / Comment(s): PROSTATE CANCER, KIDNEY STONE History of Any Multi-Drug Resistant Organisms: None Reported Past Surgical History: Adenoidectomy, Orthopedic Surgery, Tonsillectomy Additional Past Surgical History / Comment(s): PROSTATE SURGERY, LEFT KNEE ARTHROSCOPIC, Past Anesthesia/Blood Transfusion Reactions: No Reported Reaction Past Psychological History: No Psychological Hx Reported Smoking Status: Former smoker Past Alcohol Use History: Occasional Additional Past Alcohol Use History / Comment(s): STARTED SMOKING AT AGE 17 1/2 PPD QUIT SMOKING AT AGE 21 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 Past Drug Use History: None Reported - Past Family History Mother Family Medical History: No Reported History Medications and Allergies Home Medications Medication Instructions Recorded Confirmed Type Atorvastatin [Lipitor] 20 mg PO DAILY 05/23/16 06/22/22 History Enalapril [Vasotec] 20 mg PO DAILY 05/23/16 06/22/22 History Pioglitazone HCl [Actos] 15 mg PO DAILY 05/23/16 06/22/22 History allopurinoL [Zyloprim] 100 mg PO DAILY 05/23/16 06/22/22 History amLODIPine BESYLATE 10 mg PO DAILY 04/05/20 06/22/22 History Cetirizine HCl [Zyrtec] 10 mg PO DAILY 06/22/22 06/22/22 History Fluticasone Nasal [place] [Flonase 1 - 2 spr EA NOSTRIL BID PRN 06/22/22 06/22/22 History Nasal [place]] metFORMIN HCL ER [Glucophage XR] 1,000 mg PO BID 06/22/22 06/22/22 History Allergies Allergy/AdvReac Type Severity Reaction Status Date / Time levofloxacin [From Levaquin] Allergy Dyspnea Verified 06/22/22 13:30 mefloquine HCl [From Lariam] Allergy NIGHTMARES Verified 06/22/22 13:30 ofloxacin [From Floxin] Allergy JOINT PAIN Verified 06/22/22 13:30 NIGERIEN PEPPERS Allergy Dyspnea,STR Uncoded 06/22/22 13:30 IDOR Physical Exam Vitals: Vital Signs Temp Pulse Pulse Resp BP Pulse Ox 06/22/22 14:00 50 L 12 158/66 97 06/22/22 13:00 98.1 F 58 L 13 148/65 96 06/22/22 11:47 46 L 20 177/66 99 06/22/22 11:42 46 L 06/22/22 10:58 98 F 40 L 20 207/88 98 Intake and Output 06/21/22 06/22/22 06/22/22 22:59 06:59 14:59 Intake Total 175 Balance 175 Intake: IV 175 Sodium Chloride 0.9% 1, 75 000 ml @ 75 mls/hr IV . [id number] [facility] Rx#:[id number] Other: Weight 96.3 kg GENERAL EXAM: Alert, very pleasant 77-year-old male patient, on room air, comfortable in no apparent distress. HEAD: Normocephalic. EYES: Normal reaction of pupils, equal size. NOSE: Clear with pink turbinates. THROAT: No erythema or exudates. NECK: No masses, no JVD. CHEST: No chest wall deformity. LUNGS: Equal air entry with no crackles, wheeze, rhonchi or dullness. CVS: S1 and S2 normal with audible murmur, irregular rhythm. ABDOMEN: No hepatosplenomegaly, normal bowel sounds, no guarding or rigidity. SPINE: No scoliosis or deformity SKIN: No rashes CENTRAL NERVOUS SYSTEM: No focal deficits, tone is normal in all 4 extremities. EXTREMITIES: Right temporary venous pacer in place to the femoral vein. There is no peripheral edema. No clubbing, no cyanosis. Peripheral pulses are intact. Results - Laboratory Findings CBC and BMP: 06/22/22 11:15 06/22/22 11:15 PT/INR, D-dimer PT 10.2 sec (9.0-12.0) 06/22/22 11:15 INR 0.9 (<1.2) 06/22/22 11:15 Abnormal lab findings: Abnormal Labs 06/22/22 06/22/22 11:15 12:56 BUN 23 H Glucose 173 H POC Glucose (mg/dL) 197 H - Diagnostic Findings Chest x-ray: image reviewed (No acute pulmonary process) Assessment and Plan Assessment: Dizziness, nausea secondary to complete heart block. Status post temporary venous pacer insertion on 06/22/2022 with plans for permanent pacemaker later this evening. History of hypertension treated with amlodipine and enalapril in the outpatient setting. No beta blockers Diabetes mellitus, type II Hyperlipidemia History of CVA of the right MCA with residual left-sided weakness Smoker of cigars, quit cigarettes 50 years ago Plan: The patient was seen and evaluated Chest x-ray, EKG and labs reviewed Currently stable and on room air Temporary pacemaker in place Plan is for permanent pacemaker implantation later today We will continue to follow and make further recommendations based on his clinical status I have personally seen and examined the patient, performed the documentation and the assessment and plan as written. Number of minutes spent on the visit: 20.
--- NOTE | 2022-06-22 18:49 | P.EPCON ---
Electrophysiology Consult - EP Consult Electrophysiology Consult: This is Dr. Negro dictating an H/P on this patient The patient was interviewed and examined IMPRESSION / ASSESSMENT: Complete heart block with bradycardia symptomatic with dizzy spells Frequent PVCs from the inferoseptal LV, likely posterior medial papillary muscle Slow nonsustained VT from the left ventricle noted in the Violin [employer]. There was no catheter in the LV at that time Type 2 diabetes for over 15 years, hypertension, dyslipidemia Social but daily alcohol consumption PLAN: I discussed this plan with Dr. Corrales and with the patient Dr. Little who is our pathologist here in the hospital Today we will proceed with an externalized pacemaker that'll allow for mobility and a workup for cardio myopathy I would recommend coronary angiography given the wall motion abnormalities on the 2-D echo Subsequently permanent biventricular device implantation in the near future IV antibiotics while the externalized pacemaker is in situ. Patient tolerates Kefzol Lyme titers, C-reactive protein, ESR, JEFFERY level HPI For the last 3 weeks the patient has been complaining of dizzy spells that are fleeting No loss of consciousness These episodes can occur either when he is standing or sitting or even lying down This morning they were quite intense and frequent and he came to the ER. Took his pulse and found that it was under 40 beats a minute Around the same time he has been short of breath on exertion but this is an intermittent symptom He denies and the anginal episodes no chest discomfort with exertion He also denies palpitations but he has felt an irregular rhythm and knows that he has PVCs Past history of type 2 diabetes, hypertension, dyslipidemia and history of CVA ROS: No fever chills or rigors, no cough, phlegm or expectoration, no nausea, vomiting or diarrhea, no hematuria, dysuria, no musculoskeletal complaints, no strokes or seizures, no skin lesions. EXAMINATION: Initially his pulse rate was 140 beats a minute and blood pressure was high at 200 70 88 mmHg afebrile Normal heart sounds irregular REVIEW OF LABS, ECG & MEDICAL DATA Twelve-lead EKG done in the ER shows sinus rhythm right bundle branch block pattern the prolonged WI interval Right bundle branch block type PVCs with QRS fractionation in the latter half of the QRS right superior axis, and S greater than R in V4 through V6 During TVP placement slow nonsustained VT with a right bundle branch block morphology also noted 2-D echo shows mildly reduced LV systolic function with inferior basal, mid inferior and inferoseptal hypokinesis Chest x-ray does not show any evidence for mediastinal lymphadenopathy White count 6.1, hemoglobin 14.7, platelet count 206,000 Sodium 138, potassium 5.1 normal bicarb Creatinine normal at 1.1 Normal troponin Normal TSH 3.0 Normal magnesium 1.9 Home medications include metformin, amlodipine, Actos, Vasotec and atorvastatin 20 mg daily
--- NOTE | 2022-06-22 20:18 | CA ---
Transthoracic Echo Report Name: Doe Little Age: 77 Gender: M : 1945 Exam Date: 06/22/2022 13:07 Exam Location: [facility] Ht (in): 72 Wt (lb): 207 Ordering Physician: Kimi Roy Attending/Referring Phys: [id number], Kirill Information Technology Security Analyst Joceline Cramer RDCS Procedure CPT: Indications: LV function Cardiac Hx: Technical Quality: Fair Contrast 1: Total Dose (mL): Contrast 2: Total Dose (mL): MEASUREMENTS (Male / Female) Normal Values 2D ECHO LV Diastolic Diameter PLAX 4.7 cm 4.2 - 5.9 / 3.9 - 5.3 cm LV Systolic Diameter PLAX 3.4 cm IVS Diastolic Thickness 1.2 cm 0.6 - 1.0 / 0.6 - 0.9 cm LVPW Diastolic Thickness 1.4 cm 0.6 - 1.0 / 0.6 - 0.9 cm LV Relative Wall Thickness 0.6 RV Internal Dim ED PLAX 3.2 cm LVOT Diameter 2.6 cm LA Systolic Diameter LX 3.5 cm 3.0 - 4.0 / 2.7 - 3.8 cm LV Diastolic Volume MOD 4C 173.6 cm??? LV Systolic Volume MOD 4C 85.9 cm??? LV Ejection Fraction MOD 4C 50.5 % LV Diastolic Length 4C 9.3 cm LV Systolic Length 4C 7.3 cm LV Diastolic Volume MOD 2C 159.5 cm??? LV Systolic Volume MOD 2C 93.6 cm??? LV Ejection Fraction MOD 2C 41.3 % LV Diastolic Length 2C 8.3 cm LV Systolic Length 2C 7.4 cm LA Volume 61.9 cm??? 18 - 58 / 22 - 52 cm??? M-MODE Aortic Root Diameter MM 3.7 cm MV E Point Septal Separation 1.3 cm AV Cusp Separation MM 1.7 cm DOPPLER AV Peak Velocity 185.3 cm/s AV Peak Gradient 13.7 mmHg AV Mean Velocity 128.5 cm/s AV Mean Gradient 7.5 mmHg AV Velocity Time Integral 41.5 cm LVOT Peak Velocity 95.5 cm/s LVOT Peak Gradient 3.6 mmHg AV Area Cont Eq pk 2.8 cm??? MV Area PHT 3.3 cm??? Mitral E Point Velocity 92.1 cm/s Mitral A Point Velocity 110.0 cm/s Mitral E to A Ratio 0.8 MV Deceleration Time 228.4 ms MV E' Velocity 5.2 cm/s Mitral E to MV E' Ratio 17.7 FINDINGS Left Ventricle Left ventricular ejection fraction is estimated at 45-50 %. Left ventricular cavity size normal. Moderate concentric left ventricular hypertrophy. Right Ventricle Normal right ventricular size and function. Unable to estimate the right ventricular systolic pressure, no TR jet Right Atrium Normal right atrial size. Left Atrium Mildly increased left atrial volume. Mildly increased left atrial area. No evidence for an atrial septal defect. Mitral Valve Mitral annular calcification. Aortic Valve Trileaflet aortic valve. Focal thickening of the aortic valve cusps. Mild aortic stenosis with a peak gradient of 14 mmHg and a mean gradient of 8 mmHg. Tricuspid Valve Structurally normal tricuspid valve. Pulmonic Valve Structurally normal pulmonic valve. Pericardium Normal pericardium. No pericardial effusion. Aorta Normal size aortic root and proximal ascending aorta. CONCLUSIONS LV is a day upper limits of normal with moderate concentric LVH. Because of bradycardia ejection fraction appears to be lower but probably close to normal range. Aortic valve sclerosis mitral calcification noted mild mitral and tricuspid insufficiency. No pericardial effusion Previewed by: Dr. Escobar Ramirez MD (Electronically Signed) Final Date: 22 June 2022 20:17
[2022-06-22 20:42] LABS: C Reactive Protein <0.5 mg/dL (<1.0)
[2022-06-22] MEDS ORDERED: IV FLUID CONTINUATION 800 ML IV ONE (20:51)
[2022-06-22] MEDS ORDERED: amLODIPine 10 MG TAB PO SCH (21:00)
--- NOTE | 2022-06-22 21:43 | P.EPPROC ---
- EP Procedure Note Electrophysiology Procedure Note: Diagnosis Complete heart block TVP in the right groin and elevated thresholds likely micro-dislodgment Procedure Implantation of an externalized single-chamber pacemaker from the right subclavian vein Conscious sedation Procedure Patient was brought to the EP lab in a fasting state. Written informed consent was obtained prior to the procedure The right pectoral area was prepped and draped as per protocol IV antibiotics administered Venous access in the right axillary vein obtained Sheath placed in the subclavian/SCC Passively placed in the right ventricular apex Excellent thresholds of 0.5 1.5 ms Pacing impedance 800 ohms R waves independently 4-8 mV The leads secured to the skin with 2 sutures around the lead sleeve Biopatch applied Dressing applied Leads and elected to pacemaker generator Programmed to VVI 70 beats a minute 3.5 V at 0.5 ms Generator secured to the skin and dressed TVP from the right groin removed Vascade closure of the right femoral venous puncture site Good hemostasis Plan continue IV antibiotics Switched to carvedilol instead of amlodipine Continue lisinopril Patient underwent EP procedure under conscious sedation/moderate sedation, monitoring of the level of consciousness and physiologic parameters including but not limited to vital signs and oxygenation. Patient tolerated the procedure well without any acute complications. Start time: 2039 sick Stop time: 2134
[2022-06-22] MEDS ORDERED: SODIUM CHLORIDE 0.9% 1,000 ML IV SCH ×2 (21:45)
--- NOTE | 2022-06-22 21:51 | P.PN ---
Progress Note - Text Diagnosis Complete heart block Status post right-sided externalized pacemaker Plan Coronary angiography on Saturday Possible device implant biventricular pacemaker on Saturday or Saturday NPO after lunch on Saturday Continue IV antibiotics 1 g every 8 hours until then No EKG patches over the left pectoral area
[2022-06-22] MEDS: ATORVASTATIN 40 MG TAB PO SCH (22:05)
[2022-06-22] MEDS: lisinopriL 20 MG TAB PO SCH (22:05)
[2022-06-22] MEDS: carvediloL 6.25 MG TAB PO SCH (22:05)
[2022-06-22 22:13] LABS: Glucose,Whole Blood 136 mg/dL (70-110)
--- NOTE | 2022-06-22 22:50 | XR ---
EXAMINATION TYPE: XR chest 1V portable DATE OF EXAM: 06/22/2022 COMPARISON: Today's HISTORY: Pacemaker insertion TECHNIQUE: Single view FINDINGS: There is right axillary pacemaker. Lungs are clear of infiltrate. No heart failure. Heart s ize is normal. There are no hilar masses. Bony thorax is intact. There is a lead over the right ventr icle. IMPRESSION: No active cardiopulmonary disease. No adverse change.
--- NOTE | 2022-06-22 23:03 | P.HPIM ---
History of Present Illness This is a pleasant 77 years old male with past medical history of hypertension, hyperlipidemia, diabetes mellitus, CVA with mild left hemiparesis. He is a patient of Dr. Chavez Patient has been having episodes of weakness and presyncope for about one to 2 months. He checked heart rate 1 time and noticed it was low at 35, he went to see his PCP Dr. Chavez, EKG strip in the office was looking normal. As per patient then was discharge, however once he got home within a day he developed more severe weakness and dizziness and this time he was feeling numbness as well for example numbness around his mouth so he got concerned and decided to come to emergency room. Patient currently denies any chest pain or dyspnea or coughing. No abdominal pain or vomiting or diarrhea, no urinary complaints. No fever. On admission his heart rate was 40-46, currently improved 50-51. The rest of vital signs stable and patient is afebrile. Patient has unremarkable CBC, BMP and liver enzymes. TSH is normal. Chest x-ray: No acute process Review of Systems Review of systems CONSTITUTIONAL: No fever, no malaise, no fatigue. HEENT: No recent visual problems or hearing problems. Denied any sore throat. CARDIOVASCULAR: No orthopnea, PND, no palpitations, no syncope. PULMONARY: No shortness of breath, no cough, no hemoptysis. GASTROINTESTINAL: No diarrhea, no nausea, no vomiting, no abdominal pain. Normoactive bowel sounds. NEUROLOGICAL: No headaches, no weakness, no numbness. HEMATOLOGICAL: Denies any bleeding or petechiae. GENITOURINARY: Denies any burning micturition, frequency, or urgency. MUSCULOSKELETAL/RHEUMATOLOGICAL: Denies any joint pain, swelling, or any muscle pain. ENDOCRINE: Denies any polyuria or polydipsia. Past Medical History Past Medical History: Cancer, CVA/TIA, Diabetes Mellitus, Hypertension, Osteoarthritis (OA), Prostate Disorder Additional Past Medical History / Comment(s): PROSTATE CANCER, KIDNEY STONE History of Any Multi-Drug Resistant Organisms: None Reported Past Surgical History: Adenoidectomy, Orthopedic Surgery, Tonsillectomy Additional Past Surgical History / Comment(s): PROSTATE SURGERY, LEFT KNEE ARTHROSCOPIC Past Anesthesia/Blood Transfusion Reactions: No Reported Reaction Past Psychological History: No Psychological Hx Reported Smoking Status: Current every day smoker, Current some day smoker Past Alcohol Use History: Occasional Past Drug Use History: None Reported - Past Family History Mother Family Medical History: No Reported History Medications and Allergies Home Medications Medication Instructions Recorded Confirmed Type Atorvastatin [Lipitor] 20 mg PO DAILY 05/23/16 06/22/22 History Enalapril [Vasotec] 20 mg PO DAILY 05/23/16 06/22/22 History Pioglitazone HCl [Actos] 15 mg PO DAILY 05/23/16 06/22/22 History allopurinoL [Zyloprim] 100 mg PO DAILY 05/23/16 06/22/22 History amLODIPine BESYLATE 10 mg PO DAILY 04/05/20 06/22/22 History Cetirizine HCl [Zyrtec] 10 mg PO DAILY 06/22/22 06/22/22 History Fluticasone Nasal [place] [Flonase 1 - 2 spr EA NOSTRIL BID PRN 06/22/22 06/22/22 History Nasal [place]] metFORMIN HCL ER [Glucophage XR] 1,000 mg PO BID 06/22/22 06/22/22 History Allergies Allergy/AdvReac Type Severity Reaction Status Date / Time levofloxacin [From Levaquin] Allergy Dyspnea Verified 06/22/22 13:30 mefloquine HCl [From Lariam] Allergy NIGHTMARES Verified 06/22/22 13:30 ofloxacin [From Floxin] Allergy JOINT PAIN Verified 06/22/22 13:30 WOLOF PEPPERS Allergy Dyspnea,STR Uncoded 06/22/22 13:30 IDOR Physical Exam Vitals: Vital Signs Temp Pulse Pulse Resp BP Pulse Ox 06/22/22 13:00 98.1 F 58 L 13 148/65 96 06/22/22 11:47 46 L 20 177/66 99 06/22/22 11:42 46 L 06/22/22 10:58 98 F 40 L 20 207/88 98 Intake and Output 06/21/22 06/22/22 06/22/22 22:59 06:59 14:59 Intake Total 175 Balance 175 Intake: IV 175 Sodium Chloride 0.9% 1, 75 000 ml @ 75 mls/hr IV . [id number] [facility] Rx#:[id number] Other: Weight 93.894 kg GENERAL: The patient is alert and oriented x3, not in any acute distress. Well developed, well nourished. HEENT: Pupils are round and equally reacting to light. EOMI. No scleral icterus. No conjunctival pallor. Normocephalic, atraumatic. No pharyngeal erythema. No thyromegaly. CARDIOVASCULAR: S1 and S2 present. No murmurs, rubs, or gallops. PULMONARY: Chest is clear to auscultation, no wheezing or crackles. ABDOMEN: Soft, nontender, nondistended, normoactive bowel sounds. No palpable organomegaly. MUSCULOSKELETAL: No joint swelling or deformity. EXTREMITIES: No cyanosis, clubbing, or pedal edema. NEUROLOGICAL: Gross neurological examination did not reveal any focal deficits. SKIN: No rashes. no petechiae. Results CBC & Chem 7: 06/22/22 11:15 06/22/22 11:15 Labs: Abnormal Lab Results - Last 24 Hours (Table) 06/22/22 06/22/22 Range/Units 11:15 12:56 BUN 23 H (9-20) mg/dL Glucose 173 H (74-99) mg/dL POC Glucose (mg/dL) 197 H (70-110) mg/dL Assessment and Plan Assessment: Complete heart block status post permanent pacemaker Presyncope, rule out coronary artery disease Hypertension Hyperlipidemia Diabetes mellitus History of CVA with mild left hemiparesis Plan: This is a pleasant 77 years old male who presents with presyncope and complete heart block status post pacemaker Cardiac cath in the a.m. Continue with aspirin Continue with gentle hydration Patient is on antibiotics cefazolin as per cardiology team as well as Coreg and lisinopril, we will defer to surgery team to decision to management of these medication. Check hemoglobin A1c Labs and medication were reviewed.. Continue same treatment. Continue with symptomatic treatment. Resume home medication. Monitor lytes and vitals. DVT and GI prophylaxis. Further recommendations as per clinical course of the patient DVT prophylaxis: Subcutaneous heparin GI Prophylaxis: Pepcid PT/OT: Pending Prognosis is guarded
--- NOTE | 2022-06-22 23:30 | CC ---
CARDIAC CATHETERIZATION REPORT This is a temporary transvenous pacemaker. INDICATIONS: Symptomatic complete heart block. SUMMARY: This is a 77-year-old gentleman with history of hypertension who presented to hospital with dizziness and near syncope and was found to have intermittent episodes of high- grade AV block. Due to this, I advised him to undergo temporary transvenous pacemaker with a view to performing permanent pacemaker. He has been explained of risks, benefits, and alternatives. PROCEDURE NOTE: After obtaining informed consent, temporary transvenous pacemaker was done via the right femoral vein. Right femoral vein access was obtained and a 6-[place]istani sheath was introduced through which a temporary transvenous pacemaker was floated under fluoroscopic guidance into the right ventricle. Adequate pacing and sensing thresholds were obtained and the patient will be admitted to ICU and hopefully will undergo a permanent pacemaker this evening. I will obtain a 2D echo to make sure that his LV function is normal. ADONAY / ATTILA: [id number] /
--- NOTE | 2022-06-23 00:01 | CONS ---
CONSULTATION CHIEF COMPLAINT: Near syncope. HISTORY OF PRESENT ILLNESS: This is a 77-year-old gentleman with history of wjx-fpriesr-oyvnyvlxq diabetes, hypertension, who presented to hospital with episodes of dizziness and near syncope. It has been going on for the last several weeks and was particularly worse on the day of coming. He was found to be in sinus rhythm with frequent ventricular ectopy, ventricular bigeminy and intermittent episodes of complete heart block. The patient did not have any chest pain. He is not short of breath, has mild leg edema and there is no prior cardiac history. There is no history of coronary artery disease, congestive heart failure. There is no prior history of cardiac arrhythmia. I advised the patient to undergo a temporary transvenous pacemaker, I will obtain a 2D echo of the LV function. If it is normal, he will undergo a permanent pacemaker. PAST MEDICAL HISTORY: Significant for ktt-ulhneez-frmiktdii diabetes, hypertension, dyslipidemia. MEDICATIONS: Medications at home included aspirin, Lipitor, Plavix 75 daily, 20 daily, Actos, Zyloprim, amlodipine, and metformin. ALLERGIES: To Levaquin, Zosyn. FAMILY HISTORY: Negative for premature coronary artery disease. SOCIAL HISTORY: Negative for smoking, EtOH abuse, or drug abuse. REVIEW OF SYSTEMS: A review of systems has been performed, pertinents are as documented. PHYSICAL EXAMINATION: GENERAL: Comfortable at rest. VITAL SIGNS: Heart rate was varying between 30 and 70, blood pressure was 160/80, and respiratory rate is 18. CHEST: Reveals good air entry bilaterally. HEART: Reveals first and second heart sounds. Systolic murmur at the left lower sternal border. ABDOMEN: Soft. EXTREMITIES: Reveal mild edema. Peripheral pulses are felt. Labs are pending at this time. ASSESSMENT: Near syncope secondary to intermittent episodes of high-grade AV block. PLAN: The patient will undergo a temporary pacemaker. I will obtain a 2D echo and decide on further course of action. MMODL / IJN: [id number] /
[2022-06-23] MEDS: SODIUM CHLORIDE 0.9% 1,000 ML IV SCH ×2 (02:54→13:15)
[2022-06-23 06:54] LABS: Glucose,Whole Blood 156 mg/dL (70-110)
[2022-06-23] MEDS: carvediloL 6.25 MG TAB PO SCH ×2 (07:00→18:22)
[2022-06-23] MEDS: ASPIRIN 81 MG PO SCH (08:13)
[2022-06-23] MEDS: lisinopriL 20 MG TAB PO SCH (08:13)
[2022-06-23] MEDS ORDERED: ATORVASTATIN 20 MG TAB PO SCH (09:00)
[2022-06-23 11:29] LABS: African American GFR (CKD) >90 (>60 ml/min/1.73 sqM); Anion Gap 6 mmol/L; Blood Urea Nitrogen 15 mg/dL (9-20); Calcium 8.8 mg/dL (8.4-10.2); Carbon Dioxide 28 mmol/L (22-30); Chloride 104 mmol/L (98-107); Glucose 189 mg/dL (74-99); Non-African American GFR(CKD) 83 (>60 ml/min/1.73 sqM); Potassium 4.8 mmol/L (3.5-5.1); Sodium 138 mmol/L (137-145)
[2022-06-23] MEDS: ATORVASTATIN 40 MG TAB PO SCH (11:44)
--- NOTE | 2022-06-23 12:26 | P.PN ---
Subjective Progress Note Date: 06/23/22 Principal diagnosis: Complete heart block, status post temporary pacemaker placement. Visit very pleasant 77-year-old male patient who follows with Dr. Chavez is his primary care provider. 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 He had been having issues with dizziness and lightheadedness and had been seen by his PCP in no significant findings were noted. Today however he had a significant episode of dizziness with some nausea and some oral circumferential numbness while at home. His daughter was present at the time. He was brought into the emergency room for the same. He was found to be in complete heart block and was subsequently taken to the CVL and a temporary right femoral pacemaker was placed. He is set to backup pacing at 50. He was transferred to the intensive care unit for closer observation. The plan is for permanent pacemaker implantation later this evening. He is currently laying flat in bed. Awake and alert in no acute distress. Denies any dizziness, lightheadedness, nausea or chest pain. No palpitations. He is pacing quite often. He has underlying complete heart block still. He is maintaining good O2 saturations in the 90s on room air. He's been afebrile. Chest x-ray revealed no acute pulmonary process. White count 6.1. Hemoglobin 14.7. Sodium 138. Potassium 5.1. BUN 23. Creatinine 1.06. Glucose 173. AST 32. ALT 46. TSH 3.04. Magnesium 1.9. He remains nothing by mouth. He has normal saline at 75 ML's per hour. Reevaluated today on 06/23/22, patient is doing well, he seems to be fully paced, not in any distress, hemodynamically stable, cardiology is planning permanent pacemaker implantation on Saturday or Saturday. Labs today are basically unremarkable/she had normal basic metabolic profile, sugar is 189. Patient is on room air, O2 sat is 95%, blood pressure is 166/76. Heart rate is 70. Objective - Vital Signs Vital signs: Vital Signs Temp 98.8 F 06/23/22 08:00 Pulse 70 06/23/22 08:00 Resp 17 06/23/22 08:00 BP 166/76 06/23/22 08:00 Pulse Ox 94 L 06/23/22 08:13 FiO2 Intake & Output 06/22/22 06/23/22 06/23/22 18:59 06:59 18:59 Intake Total 550 1100 375 Output Total 700 1175 275 Balance -150 -75 100 Weight 96.3 kg 97.2 kg Intake: IV 550 1050 375 Sodium Chloride 0.9% 1, 450 900 375 000 ml @ 75 mls/hr IV . [id number] [facility] Rx#:[id number] Intake, IV Titration 50 Amount ceFAZolin 1 gm In Sodium 50 Chloride 0.9% 50 ml @ 100 mls/hr IVPB Q8H [facility] Rx#: [id number] Output: Urine 700 1175 275 Other: Voiding Method External Catheter Toilet # Voids 0 1 # Bowel Movements 0 1 - Exam Physical Exam: Revealed a 77-year-old in no distress, pleasant, Head: Atraumatic, normocephalic. HEENT:[Neck is supple.] [No neck masses.] [No thyromegaly.] [No JVD.] Chest: [Clear throughout, no crackles, no rhonchi, no wheezes.] Cardiac Exam: [Normal S1 and S2, no S3 gallop, 2/6 systolic murmur over the aortic area. Abdomen: [Soft, nontender, no megaly, no rebound, no guarding, normal bowel sounds.] Extremities: [No clubbing, no edema, no cyanosis.] Neurological Exam: [No focal neurologic deficit.] Alert oriented 3. Psychiatric: Normal mood, affect and normal mental status examination. Skin: No rashes. - Labs CBC & Chem 7: 06/22/22 11:15 06/23/22 09:41 Labs: Abnormal Lab Results - Last 24 Hours (Table) 06/22/22 06/22/22 06/23/22 Range/Units 12:56 22:12 06:51 Glucose (74-99) mg/dL POC Glucose (mg/dL) 197 H 136 H 156 H (70-110) mg/dL 06/23/22 Range/Units 09:41 Glucose 189 H (74-99) mg/dL POC Glucose (mg/dL) (70-110) mg/dL Assessment and Plan Assessment: Complete heart block requiring temporary pacemaker placement. 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 Plan: Agree with present treatment plan Cardiac catheterization is pending at we'll be done today. Agree with permanent pacemaker implantation early next week. We'll continue to follow. Time with Patient: Less than 30
[2022-06-23] MEDS ORDERED: fentaNYL (PF) 50 MCG/ML 2 ML AMP ONE (16:32)
[2022-06-23] MEDS ORDERED: VERAPAMIL 2.5 MG/ML 2 ML AMP ONE (16:32)
[2022-06-23] MEDS ORDERED: IV FLUID CONTINUATION 300 ML IV ONE (16:43)
[2022-06-23] MEDS ORDERED: MIDAZOLAM 2 MG/2 ML VIAL IV ONE ×2 (16:46)
[2022-06-23] MEDS ORDERED: fentaNYL (PF) 50 MCG/ML 2 ML AMP IV ONE (16:46)
[2022-06-23] MEDS ORDERED: LIDOCAINE 1% INJ 10MG/ML (30 ML VIAL-PF) SQ ONE (16:48)
[2022-06-23] MEDS ORDERED: HEPARIN SODIUM 1,000 UN/ML (10ML VL) IV ONE (16:52)
[2022-06-23] MEDS ORDERED: IOPAMIDOL-370 125ML BTL INJ ONE (17:07)
--- NOTE | 2022-06-23 17:35 | P.CARDCATH ---
Description of Procedure: PROCEDURES PERFORMED: Left heart catheterization, bilateral coronary angiography INDICATION: Cardiomyopathy CONSENT:I have discussed the risks, benefits and alternative therapies for the above-mentioned procedure and for both sedation/analgesia as well as necessary blood product administration, if indicated, as they pertain to this patient. The patient has indicated understanding and acceptance of the risks and procedures discussed. PROCEDURE: After the risks, benefits and alternatives of the above mentioned procedure explained in detail with the patient, informed consent was obtained. Patient was taken to the catheterization lab and prepped and draped in usual fashion. 1% lidocaine was used to anesthetize the right radial artery. A 6- Surinamese sheath was placed in the right radial artery using modified Seldinger technique. Left coronary angiography was performed with a 5-Surinamese JL 3.5 catheter and right coronary angiography was performed with a 5-Surinamese JR5 catheter in various views. A 5-Surinamese FR5 catheter was inserted into the left ventricle and pressure measurements were obtained. The right radial sheath was removed and a TR band was placed with hemostasis achieved. The patient tolerated the procedure well. Patient was transported back to the post catheterization holding area in stable condition. Conscious Sedation: Patient was monitored under the direct supervision of vision of myself for conscious sedation using Versed and fentanyl for a total duration of [] minutes HEMODYNAMICS: Aortic: 147/78 LT: 142/10, LVEDP 21 SELECTIVE CORONARY ARTERIOGRAPHY: LEFT MAIN: The left main is a large caliber vessel which bifurcates into the LAD and circumflex. There is distal left main 10-20% stenosis. LEFT ANTERIOR DESCENDING CORONARY ARTERY: LAD is a large caliber vessel which wraps around to the apex. There are mild luminal irregularities and a more focal mid LAD 50-60% stenosis with mild amount of bridging. LEFT CIRCUMFLEX CORONARY ARTERY: Left circumflex is a moderate caliber vessel with mild luminal irregularities. OM1 branch is small to moderate caliber with a 40% proximal OM1 stenosis. There are kwub-gl-[id number] collaterals to the RCA. RIGHT CORONARY ARTERY: The right coronary artery is a small to moderate caliber vessel which gives off a PDA and PLV branch and is the dominant vessel. There is a mid RCA 100% stenosis. FINAL IMPRESSION: 1. CAD as described above including 100% RCA stenosis, OM1 40% stenosis, mid LAD 50-60% stenosis 2. Elevated left sided filling pressures PLAN: 1. Aggressive risk factor modification per most recent ACC/AHA guidelines. 2. Patient not have any significant angina-type symptoms and majority of symptoms appear related to heart block. Recommend pacemaker for heart block and if has angina in the future may consider functional assessment of LAD lesion.
[2022-06-23] MEDS ORDERED: ACETAMINOPHEN TAB 325 MG TAB PO PRN (21:59)
[2022-06-23] MEDS: HYDROcodone/APAP 5-325MG 1 EACH TAB PO PRN (22:19)
--- NOTE | 2022-06-23 23:18 | P.PN ---
Subjective This is a pleasant 77 years old male with past medical history of hypertension, hyperlipidemia, diabetes mellitus, CVA with mild left hemiparesis. He is a patient of Dr. Chavez Patient has been having episodes of weakness and presyncope for about one to 2 months. He checked heart rate 1 time and noticed it was low at 35, he went to see his PCP Dr. Chavez, EKG strip in the office was looking normal. As per patient then was discharge, however once he got home within a day he developed more severe weakness and dizziness and this time he was feeling numbness as well for example numbness around his mouth so he got concerned and decided to come to emergency room. Patient currently denies any chest pain or dyspnea or coughing. No abdominal pain or vomiting or diarrhea, no urinary complaints. No fever. On admission his heart rate was 40-46, currently improved 50-51. The rest of vital signs stable and patient is afebrile. Patient has unremarkable CBC, BMP and liver enzymes. TSH is normal. Chest x-ray: No acute proces 06/23/2022 Patient underwent cardiac cath today showing and the percent stenosis of the RCA and 50-60% of the LAD. However patient with no chest pain only symptoms related to his complete heart block. Therefore cook dinner recommended conservative management and follow-up as an outpatient. Patient is hemodynamically stable. He has temporal pacemaker and IV fluids Objective - Vital Signs Vital signs: Vital Signs Temp 98.8 F 06/23/22 08:00 Pulse 70 06/23/22 08:00 Resp 17 06/23/22 08:00 BP 166/76 06/23/22 08:00 Pulse Ox 94 L 06/23/22 08:13 FiO2 Intake & Output 06/22/22 06/23/22 06/23/22 18:59 06:59 18:59 Intake Total 550 1100 75 Output Total 700 1175 Balance -150 -75 75 Weight 96.3 kg 97.2 kg Intake: IV 550 1050 75 Sodium Chloride 0.9% 1, 450 900 75 000 ml @ 75 mls/hr IV . [id number] [facility] Rx#:[id number] Intake, IV Titration 50 Amount ceFAZolin 1 gm In Sodium 50 Chloride 0.9% 50 ml @ 100 mls/hr IVPB Q8H [facility] Rx#: [id number] Output: Urine 700 1175 Other: Voiding Method External Catheter Toilet # Voids 0 0 # Bowel Movements 0 0 - Exam GENERAL: The patient is alert and oriented x3, not in any acute distress. Well developed, well nourished. HEENT: Pupils are round and equally reacting to light. EOMI. No scleral icterus. No conjunctival pallor. Normocephalic, atraumatic. No pharyngeal erythema. No thyromegaly. CARDIOVASCULAR: S1 and S2 present. No murmurs, rubs, or gallops. PULMONARY: Chest is clear to auscultation, no wheezing or crackles. ABDOMEN: Soft, nontender, nondistended, normoactive bowel sounds. No palpable organomegaly. MUSCULOSKELETAL: No joint swelling or deformity. EXTREMITIES: No cyanosis, clubbing, or pedal edema. NEUROLOGICAL: Gross neurological examination did not reveal any focal deficits. SKIN: No rashes. no petechiae. - Labs CBC & Chem 7: 06/22/22 11:15 06/23/22 09:41 Labs: Abnormal Lab Results - Last 24 Hours (Table) 06/22/22 06/22/22 06/22/22 Range/Units 11:15 12:56 22:12 BUN 23 H (9-20) mg/dL Glucose 173 H (74-99) mg/dL POC Glucose (mg/dL) 197 H 136 H (70-110) mg/dL 06/23/22 Range/Units 06:51 BUN (9-20) mg/dL Glucose (74-99) mg/dL POC Glucose (mg/dL) 156 H (70-110) mg/dL Assessment and Plan Assessment: Complete heart block status post permanent pacemaker coronary artery disease with 100% stenosis of the RCA 50-60% of the LAD and 40% of OM1 Presyncope, rule out coronary artery disease Hypertension Hyperlipidemia Diabetes mellitus History of CVA with mild left hemiparesis Plan: This is a pleasant 77 years old male who presents with presyncope and complete heart block status post pacemaker Under direct cardiac cath to be scheduled next week Continue with aspirin Continue with gentle hydration Patient is on antibiotics cefazolin as per cardiology team as well as Coreg and lisinopril, we will defer to surgery team to decision to management of these medication. Check hemoglobin A1c Labs and medication were reviewed.. Continue same treatment. Continue with symptomatic treatment. Resume home medication. Monitor lytes and vitals. DVT and GI prophylaxis. Further recommendations as per clinical course of the patient DVT prophylaxis: Subcutaneous heparin GI Prophylaxis: Pepcid PT/OT: Pending Prognosis is guarded
[2022-06-24] MEDS: SODIUM CHLORIDE 0.9% 1,000 ML IV SCH ×2 (04:59→15:49)
[2022-06-24] MEDS: carvediloL 6.25 MG TAB PO SCH ×2 (07:47→16:30)
[2022-06-24] MEDS: ASPIRIN 81 MG PO SCH (09:39)
[2022-06-24] MEDS: lisinopriL 20 MG TAB PO SCH (09:39)
[2022-06-24] MEDS: ATORVASTATIN 40 MG TAB PO SCH (09:39)
[2022-06-24 11:18] LABS: Glucose,Whole Blood 209 mg/dL (70-110)
[2022-06-24] MEDS ORDERED: DEXTROSE 50% SYRINGE 50 ML IVP PRN ×2 (11:21)
[2022-06-24] MEDS: INSULIN ASPART (NovoLOG) 100 UNIT/ML VIAL SQ SCH ×3 (11:37→20:48)
--- NOTE | 2022-06-24 11:52 | P.PN ---
Subjective Progress Note Date: 06/24/22 Principal diagnosis: Complete heart block, status post temporary pacemaker placement. Visit very pleasant 77-year-old male patient who follows with Dr. Chavez is his primary care provider. 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 He had been having issues with dizziness and lightheadedness and had been seen by his PCP in no significant findings were noted. Today however he had a significant episode of dizziness with some nausea and some oral circumferential numbness while at home. His daughter was present at the time. He was brought into the emergency room for the same. He was found to be in complete heart block and was subsequently taken to the CVL and a temporary right femoral pacemaker was placed. He is set to backup pacing at 50. He was transferred to the intensive care unit for closer observation. The plan is for permanent pacemaker implantation later this evening. He is currently laying flat in bed. Awake and alert in no acute distress. Denies any dizziness, lightheadedness, nausea or chest pain. No palpitations. He is pacing quite often. He has underlying complete heart block still. He is maintaining good O2 saturations in the 90s on room air. He's been afebrile. Chest x-ray revealed no acute pulmonary process. White count 6.1. Hemoglobin 14.7. Sodium 138. Potassium 5.1. BUN 23. Creatinine 1.06. Glucose 173. AST 32. ALT 46. TSH 3.04. Magnesium 1.9. He remains nothing by mouth. He has normal saline at 75 ML's per hour. Reevaluated today on 06/23/22, patient is doing well, he seems to be fully paced, not in any distress, hemodynamically stable, cardiology is planning permanent pacemaker implantation on Saturday or Saturday. Labs today are basically unremarkable/she had normal basic metabolic profile, sugar is 189. Patient is on room air, O2 sat is 95%, blood pressure is 166/76. Heart rate is 70. Reevaluated today on 06/24/22, patient is doing great, he had cardiac catheterization yesterday and he was found to have 100% RCA stenosis, obtuse marginal 140% and mid LAD 50-60% stenosis. Patient was advised medical therapy, patient has no symptoms to suggest angina or coronary artery disease, he is scheduled to undergo permanent pacemaker implantation tomorrow. Patient is doing well otherwise, and no specific complaints. Objective - Vital Signs Vital signs: Vital Signs Temp 98.3 F 06/24/22 08:00 Pulse 70 06/24/22 08:00 Resp 17 06/24/22 08:00 BP 155/72 06/24/22 08:00 Pulse Ox 95 06/24/22 08:00 FiO2 Intake & Output 06/23/22 06/24/22 06/24/22 18:59 06:59 18:59 Intake Total 575 250 Output Total 475 100 Balance 100 150 Intake: IV 575 150 Sodium Chloride 0.9% 1, 375 150 000 ml @ 75 mls/hr IV . [id number] [facility] Rx#:[id number] Intake, IV Titration 100 Amount ceFAZolin 1 gm In Sodium 100 Chloride 0.9% 50 ml @ 100 mls/hr IVPB Q8H [facility] Rx#: [id number] Output: Urine 475 100 Other: Voiding Method Toilet Toilet # Voids 1 1 # Bowel Movements 1 0 - Exam Physical Exam: Revealed a 77-year-old in no distress, pleasant, Head: Atraumatic, normocephalic. HEENT:[Neck is supple.] [No neck masses.] [No thyromegaly.] [No JVD.] Right subclavian temporary pacemaker noted. Chest: [Clear throughout, no crackles, no rhonchi, no wheezes.] Cardiac Exam: [Normal S1 and S2, no S3 gallop, 2/6 systolic murmur over the aortic area. Abdomen: [Soft, nontender, no megaly, no rebound, no guarding, normal bowel sounds.] Extremities: [No clubbing, no edema, no cyanosis.] Neurological Exam: [No focal neurologic deficit.] Alert oriented 3. Psychiatric: Normal mood, affect and normal mental status examination. Skin: No rashes. - Labs CBC & Chem 7: 06/22/22 11:15 06/23/22 09:41 Labs: Abnormal Lab Results - Last 24 Hours (Table) 06/24/22 Range/Units 11:16 POC Glucose (mg/dL) 209 H (70-110) mg/dL Assessment and Plan Assessment: Complete heart block requiring temporary pacemaker placement. 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 Time with Patient: Less than 30
--- NOTE | 2022-06-24 14:02 | P.PN ---
Subjective HISTORY OF PRESENTING ILLNESS This is a pleasant 77 -year-old male who presented with lightheadedness and was found to be significantly bradycardic. Echo showed mildly decreased EF and therefore heart catheterization was performed yesterday which showed CT of the RCA and otherwise mild OM1 40% stenosis and a mid LAD 50-60% stenosis. He denies any chest pain or pressure. Denies any shortness breath. He does have chronic issues with some edema. Telemetry revealed with ventricular pacing almost 100% of the time from in the externalized pacemaker PHYSICAL EXAMINATION Vital signs reviewed. CONSTITUTIONAL: No apparent distress. HEENT: Head is normocephalic. Pupils are equal, round. Sclerae anicteric. Mucous membranes of the mouth are moist. No JVD. No carotid bruit. CHEST EXAMINATION: Lungs are clear to auscultation. No chest wall tenderness is noted on palpation or with deep breathing. HEART EXAMINATION: Regular rate and rhythm. S1, S2 heard. No murmurs, gallops or rub. ABDOMEN: Soft, nontender. Positive bowel sounds. EXTREMITIES: 2+ peripheral pulses, no lower extremity edema and no calf tenderness. NEUROLOGIC EXAMINATION: Patient is awake, alert and oriented x3. ASSESSMENT 1. Sick sinus syndrome 2. Lightheadedness related to sick sinus syndrome 3. Mild cardiomyopathy 4. PVCs 5. CAD with 100% TECHNICAL [employer]OSAL WR[employer] of the RCA with [id number] collaterals as well as mild to moderate 40% OM1 and 50-60% mid LAD 6. Chronic lower extremity edema PLAN Discuss results of heart catheterization with patient. Patient not have any sig nificant angina-type symptoms. Therefore recommend to proceed with permanent pacemaker tomorrow. Continue with current regimen and pacemaker 06/25. Objective - Vital Signs Vital signs: Vital Signs Temp 98.7 F 06/24/22 12:00 Pulse 70 06/24/22 12:00 Resp 27 H 06/24/22 12:00 BP 151/96 06/24/22 12:00 Pulse Ox 95 06/24/22 12:00 FiO2 Intake & Output 06/23/22 06/24/22 06/24/22 18:59 06:59 18:59 Intake Total 575 250 Output Total 475 100 Balance 100 150 Intake: IV 575 150 Sodium Chloride 0.9% 1, 375 150 000 ml @ 75 mls/hr IV . [id number] [facility] Rx#:[id number] Intake, IV Titration 100 Amount ceFAZolin 1 gm In Sodium 100 Chloride 0.9% 50 ml @ 100 mls/hr IVPB Q8H [facility] Rx#: [id number] Output: Urine 475 100 Other: Voiding Method Toilet Toilet # Voids 1 1 # Bowel Movements 1 0 - Labs CBC & Chem 7: 06/22/22 11:15 06/23/22 09:41 Labs: Abnormal Lab Results - Last 24 Hours (Table) 06/24/22 Range/Units 11:16 POC Glucose (mg/dL) 209 H (70-110) mg/dL
[2022-06-24 16:42] LABS: Glucose,Whole Blood 251 mg/dL (70-110)
[2022-06-24 19:58] LABS: Glucose,Whole Blood 165 mg/dL (70-110)
[2022-06-24] MEDS: HYDROcodone/APAP 5-325MG 1 EACH TAB PO PRN (20:48)
[2022-06-25] MEDS: carvediloL 6.25 MG TAB PO SCH ×2 (06:28→17:04)
[2022-06-25 06:36] LABS: Glucose,Whole Blood 143 mg/dL (70-110)
[2022-06-25] MEDS: INSULIN ASPART (NovoLOG) 100 UNIT/ML VIAL SQ SCH ×4 (06:37→20:37)
[2022-06-25] MEDS ORDERED: ceFAZolin 1 GM in SODIUM CHLORIDE 0.9% IRRIG BTL 250 ML IRRIGATION PRN (07:00)
--- NOTE | 2022-06-25 07:25 | P.PN ---
Subjective Progress Note Date: 06/25/22 Principal diagnosis: Symptomatic bradycardia The patient is a 77-year-old gentleman who was admitted to the hospital with dizziness and lightheadedness and he was found to be bradycardic. Temporary pacemaker was placed and the patient continues to be pacemaker dependent. He al so was diagnosed with mild cardiomyopathy and he underwent a heart catheterization which revealed chronic total occlusion of the RCA with hwsl-[id number] collateral and intermediate disease involving the left coronary system. He was seen this morning. He continues to have based rhythm and continues to be pacemaker dependent. For that reason the patient is going to undergo permanent pacemaker later on today. Objective - Vital Signs Vital signs: Vital Signs Temp 97.8 F 06/25/22 03:00 Pulse 69 06/25/22 04:00 Resp 18 06/25/22 04:00 BP 150/74 06/25/22 03:00 Pulse Ox 99 06/25/22 00:00 FiO2 Intake & Output 06/24/22 06/25/22 06/25/22 18:59 06:59 18:59 Intake Total 50 50 Output Total 800 Balance -750 50 Intake: Intake, IV Titration 50 50 Amount ceFAZolin 1 gm In Sodium 50 50 Chloride 0.9% 50 ml @ 100 mls/hr IVPB Q8H [facility] Rx#: [id number] Output: Urine 800 Other: Voiding Method Toilet Toilet # Voids 1 - Constitutional General appearance: Present: no acute distress - Respiratory Respiratory: bilateral: diminished - Cardiovascular Rhythm: regular - Labs CBC & Chem 7: 06/22/22 11:15 06/23/22 09:41 Labs: Abnormal Lab Results - Last 24 Hours (Table) 06/24/22 06/24/22 06/24/22 Range/Units 11:16 11:37 16:41 POC Glucose (mg/dL) 209 H 251 H (70-110) mg/dL Hemoglobin A1c 7.4 H (0.0-6.0) % 06/24/22 06/25/22 Range/Units 19:56 06:35 POC Glucose (mg/dL) 165 H 143 H (70-110) mg/dL Hemoglobin A1c (0.0-6.0) % Assessment and Plan Assessment: Assessment #1 sick sinus syndrome #2 CAD as described above Plan #1 continue the current medical regimen #2 the patient is in process of having permanent pacemaker later on today
[2022-06-25] MEDS ORDERED: VANCOMYCIN 2,000 MG in SODIUM CHLORIDE 0.9% 500 ML 500 ML IVPB STA (07:42)
[2022-06-25] MEDS: SODIUM CHLORIDE 0.9% 1,000 ML IV SCH ×2 (08:12→20:32)
[2022-06-25] MEDS: lisinopriL 20 MG TAB PO SCH (08:12)
[2022-06-25] MEDS: ASPIRIN 81 MG PO SCH (08:12)
[2022-06-25] MEDS: ATORVASTATIN 40 MG TAB PO SCH (08:12)
--- NOTE | 2022-06-25 09:57 | P.PN ---
Subjective This is a pleasant 77 years old male with past medical history of hypertension, hyperlipidemia, diabetes mellitus, CVA with mild left hemiparesis. He is a patient of Dr. Chavez Patient has been having episodes of weakness and presyncope for about one to 2 months. He checked heart rate 1 time and noticed it was low at 35, he went to see his PCP Dr. Chavez, EKG strip in the office was looking normal. As per patient then was discharge, however once he got home within a day he developed more severe weakness and dizziness and this time he was feeling numbness as well for example numbness around his mouth so he got concerned and decided to come to emergency room. Patient currently denies any chest pain or dyspnea or coughing. No abdominal pain or vomiting or diarrhea, no urinary complaints. No fever. On admission his heart rate was 40-46, currently improved 50-51. The rest of vital signs stable and patient is afebrile. Patient has unremarkable CBC, BMP and liver enzymes. TSH is normal. Chest x-ray: No acute proces 06/23/2022 Patient underwent cardiac cath today showing and the percent stenosis of the RCA and 50-60% of the LAD. However patient with no chest pain only symptoms related to his complete heart block. 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 Patient is hemodynamically stable. He has temporal pacemaker and IV fluids 06/24/2022 Patient fully awake and oriented, looks comfortable. Denies any chest pain. Vitals are stable Labs reviewed. 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 Ejection fraction is showing normal left ventricular of the upper limits of normal at 45-50% with moderate concentric LVH. He had cardiac cath showing 100% stenosis of the RCA and 50-60% of the LAD. Hemoglobin A1c 7.4 patient is already on metformin and Actos, these medication needs to be adjusted upon discharge. But not currently since he is going for procedure tomorrow possibly with cardiology team for permanent pacemaker placement Objective - Vital Signs Vital signs: Vital Signs Temp 97.7 F 06/24/22 02:00 Pulse 70 06/24/22 07:30 Resp 12 06/24/22 07:30 BP 155/72 06/24/22 07:30 Pulse Ox 93 L 06/24/22 07:30 FiO2 Intake & Output 06/23/22 06/24/22 06/24/22 18:59 06:59 18:59 Intake Total 575 250 Output Total 475 100 Balance 100 150 Intake: IV 575 150 Sodium Chloride 0.9% 1, 375 150 000 ml @ 75 mls/hr IV . [id number] [facility] Rx#:[id number] Intake, IV Titration 100 Amount ceFAZolin 1 gm In Sodium 100 Chloride 0.9% 50 ml @ 100 mls/hr IVPB Q8H [facility] Rx#: [id number] Output: Urine 475 100 Other: Voiding Method Toilet Toilet # Voids 1 1 # Bowel Movements 1 0 - Exam GENERAL: The patient is alert and oriented x3, not in any acute distress. Well developed, well nourished. HEENT: Pupils are round and equally reacting to light. EOMI. No scleral icterus. No conjunctival pallor. Normocephalic, atraumatic. No pharyngeal erythema. No thyromegaly. CARDIOVASCULAR: S1 and S2 present. No murmurs, rubs, or gallops. PULMONARY: Chest is clear to auscultation, no wheezing or crackles. ABDOMEN: Soft, nontender, nondistended, normoactive bowel sounds. No palpable organomegaly. MUSCULOSKELETAL: No joint swelling or deformity. EXTREMITIES: No cyanosis, clubbing, or pedal edema. NEUROLOGICAL: Gross neurological examination did not reveal any focal deficits. SKIN: No rashes. no petechiae. - Labs CBC & Chem 7: 06/22/22 11:15 06/23/22 09:41 Labs: Abnormal Lab Results - Last 24 Hours (Table) 06/23/22 Range/Units 09:41 Glucose 189 H (74-99) mg/dL Assessment and Plan Assessment: Complete heart block status post permanent pacemaker coronary artery disease with 100% stenosis of the RCA 50-60% of the LAD and 40% of OM1 Presyncope, rule out coronary artery disease Hypertension Hyperlipidemia Diabetes mellitus History of CVA with mild left hemiparesis Plan: This is a pleasant 77 years old male who presents with presyncope and complete heart block status post pacemaker Under direct cardiac cath to be scheduled next week Continue with aspirin Continue with gentle hydration Patient is on antibiotics cefazolin as per cardiology team as well as Coreg and lisinopril, we will defer to surgery team to decision to management of these medication. We recommend just patient medication of metformin and Actos upon discharge after his on with his procedure tomorrow Labs and medication were reviewed.. Continue same treatment. Continue with symptomatic treatment. Resume home medication. Monitor lytes and vitals. DVT and GI prophylaxis. Further recommendations as per clinical course of the patient DVT prophylaxis: Subcutaneous heparin GI Prophylaxis: Pepcid PT/OT: Pending Prognosis is guarded
[2022-06-25] MEDS ORDERED: MIDAZOLAM 2 MG/2 ML VIAL ONE (11:16)
[2022-06-25] MEDS ORDERED: PROPOFOL 10 MG/ML 20 ML VIAL IV ONE (11:16)
[2022-06-25] MEDS ORDERED: fentaNYL (PF) 50 MCG/ML 2 ML AMP ONE (11:16)
[2022-06-25] MEDS ORDERED: LIDOCAINE 2% INJ 20 MG/ML (2 ML VIAL) ONE (11:16)
[2022-06-25] MEDS ORDERED: SODIUM CHLORIDE 0.9% 250 ML IV ONE (11:16)
--- NOTE | 2022-06-25 11:18 | P.PN ---
Subjective Progress Note Date: 06/25/22 Principal diagnosis: Heart block. Complete heart block, status post temporary pacemaker placement. Visit very pleasant 77-year-old male patient who follows with Dr. Chavez is his primary care provider. 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 He had been having issues with dizziness and lightheadedness and had been seen by his PCP in no significant findings were noted. Today however he had a significant episode of dizziness with some nausea and some oral circumferential numbness while at home. His daughter was present at the time. He was brought into the emergency room for the same. He was found to be in complete heart block and was subsequently taken to the CVL and a temporary right femoral pacemaker was placed. He is set to backup pacing at 50. He was transferred to the intensive care unit for closer observation. The plan is for permanent pacemaker implantation later this evening. He is currently laying flat in bed. Awake and alert in no acute distress. Denies any dizziness, lightheadedness, nausea or chest pain. No palpitations. He is pacing quite often. He has underlying complete heart block still. He is maintaining good O2 saturations in the 90s on room air. He's been afebrile. Chest x-ray revealed no acute pulmonary process. White count 6.1. Hemoglobin 14.7. Sodium 138. Potassium 5.1. BUN 23. Creatinine 1.06. Glucose 173. AST 32. ALT 46. TSH 3.04. Magnesium 1.9. He remains nothing by mouth. He has normal saline at 75 ML's per hour. Reevaluated today on 06/23/22, patient is doing well, he seems to be fully paced, not in any distress, hemodynamically stable, cardiology is planning permanent pacemaker implantation on Saturday or Saturday. Labs today are basically unremarkable/she had normal basic metabolic profile, sugar is 189. Patient is on room air, O2 sat is 95%, blood pressure is 166/76. Heart rate is 70. Reevaluated today on 06/24/22, patient is doing great, he had cardiac catheterization yesterday and he was found to have 100% RCA stenosis, obtuse marginal 140% and mid LAD 50-60% stenosis. Patient was advised medical therapy, patient has no symptoms to suggest angina or coronary artery disease, he is scheduled to undergo permanent pacemaker implantation tomorrow. Patient is doing well otherwise, and no specific complaints. Progress note dated 06/25/2022. 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 The heart block. The patient is to have a pacemaker placed today. He is currently on room air. The patient is not receiving any IV fluids. He is resting com fortably in the ICU, room 257. No new lab data today. Objective - Vital Signs Vital signs: Vital Signs Temp 98.1 F 06/25/22 08:00 Pulse 70 06/25/22 08:00 Resp 12 06/25/22 08:00 BP 182/92 06/25/22 08:00 Pulse Ox 94 L 06/25/22 08:00 FiO2 Intake & Output 06/24/22 06/25/22 06/25/22 18:59 06:59 18:59 Intake Total 50 50 Output Total 800 Balance -750 50 Weight 96.3 kg Intake: Intake, IV Titration 50 50 Amount ceFAZolin 1 gm In Sodium 50 50 Chloride 0.9% 50 ml @ 100 mls/hr IVPB Q8H [facility] Rx#: [id number] Output: Urine 800 Other: Voiding Method Toilet Toilet Toilet # Voids 1 - Exam No acute distress, oriented 3. Currently on room air. HEENT examination is grossly unremarkable. Neck supple. Full range of motion. No adenopathy thyromegaly or neck vein distention. Cardiovascular examination reveals regular rhythm rate. S1-S2 normal. No S3 or S4. A soft systolic murmur is noted. Lungs reveal clear breath sounds. Breath sounds are equal bilaterally. No adventitious lung sounds including wheezes rhonchi or crackles. Abdomen soft bowel sounds are heard. No masses or tenderness. Extremities are intact. No cyanosis clubbing or edema. Skin is without rash or lesion. Neurologic examination is brief but nonfocal. - Labs CBC & Chem 7: 06/22/22 11:15 06/23/22 09:41 Labs: Abnormal Lab Results - Last 24 Hours (Table) 06/24/22 06/24/22 06/24/22 Range/Units 11:16 11:37 16:41 POC Glucose (mg/dL) 209 H 251 H (70-110) mg/dL Hemoglobin A1c 7.4 H (0.0-6.0) % 06/24/22 06/25/22 Range/Units 19:56 06:35 POC Glucose (mg/dL) 165 H 143 H (70-110) mg/dL Hemoglobin A1c (0.0-6.0) % Assessment and Plan Assessment: Complete heart block, requiring temporary pacemaker placement with anticipated permanent pacemaker implantation today. Benign essential hypertension. Type 2 diabetes mellitus. Hyperlipidemia. History of CVA, with residual left-sided weakness. CAD, with recent cardiac catheterization and medical management. Plan: Plan dated 06/25/2022. Labs, x-rays, and medications are all reviewed. The patient will likely have a pacemaker implanted today. Additional recommendations and suggestions are forthcoming. His coronary disease we be managed medically. We will continue to follow. Prognosis is thought to be generally good. Time with Patient: Less than 30
[2022-06-25] MEDS ORDERED: LIDOCAINE 1% INJ 10MG/ML (30 ML VIAL-PF) SQ ONE (12:14)
[2022-06-25] MEDS ORDERED: ACETAMINOPHEN TAB 325 MG TAB PO PRN (14:35)
--- NOTE | 2022-06-25 14:35 | P.EPPROC ---
- EP Procedure Note Electrophysiology Procedure Note: Diagnosis Complete heart block with syncope Bradycardia, standard pacemaker will result in RV pacing >40% Procedure LB/ biventricular pacemaker implantation Details Patient was brought to the EP lab in a fasting state. Written informed consent was obtained prior to the procedure. Conscious sedation provided by anesthesia team IV antibiotics administered. Local anesthesia administered. A 4 cm incision made in the pectoral area. Subfascial pocket made. Venous access obtained Venous sheaths placed. Leads placed in the right heart Atrial lead position the right atrial appendage. Passive lead [employer]onic, 53 cm, in the right atrial appendage P waves 5 mV, pacing threshold 0.5 V at 0.5 ms and pacing impedance of 540 ohms RV lead position in the RV apex. Single coil ICD lead implanted since the patient has an inferior wall hypokinesis with ejection fraction 45% No R waves. Pacing threshold 0.5 1.5 ms and pacing impedance of [address] medical model #7122, 65 cm in length Medtronic 3830-lead screwed in the left bundle Selective capture of the left bundle Pacing threshold less than 0.3 mV at 0.5 ms and pacing impedance of 613 ohms With the PSA cables, pacing impedance was between 800 and 900 ohms QRS width 146 ms Typical right bundle branch block pattern Stim to peak of V6 was 76 ms, constant during threshold check Biventricular pacemaker device connected to the leads and placed in the subfascial pocket Antibiotic pouch placed Patient tolerated the procedure well without acute complications DDD 60-130 bpm, preferential left bundle pacing RV pacing programmed 80 ms after left bundle pacing
--- NOTE | 2022-06-25 14:39 | P.PCN ---
Preoperative Diagnosis: Procedure Extraction of passive lead implanted via the right axillary vein The dressing was removed Under sterile precautions the generator was disconnected from the pacemaker lead The leads sleeve sutures were removed Stylet placed With gradual traction and counterclockwise returns, the passive lead in the right ventricle was gradually extracted Hemostasis was achieved at the puncture site This was performed under fluoroscopy The left-sided leads remained stable
[2022-06-25] MEDS ORDERED: ACETAMINOPHEN IV (For NPO) 1,000 MG in EMPTY BAG 1 BAG IVPB ONE (15:00)
--- NOTE | 2022-06-25 15:07 | P.PN ---
Subjective Progress Note Date: 06/25/22 This is a pleasant 77 years old male with past medical history of hypertension, hyperlipidemia, diabetes mellitus, CVA with mild left hemiparesis. He is a patient of Dr. Chavez Patient has been having episodes of weakness and presyncope for about one to 2 months. He checked heart rate 1 time and noticed it was low at 35, he went to see his PCP Dr. Chavez, EKG strip in the office was looking normal. As per patient then was discharge, however once he got home within a day he developed more severe weakness and dizziness and this time he was feeling numbness as well for example numbness around his mouth so he got concerned and decided to come to emergency room. Patient currently denies any chest pain or dyspnea or coughing. No abdominal pain or vomiting or diarrhea, no urinary complaints. No fever. On admission his heart rate was 40-46, currently improved 50-51. The rest of vital signs stable and patient is afebrile. Patient has unremarkable CBC, BMP and liver enzymes. TSH is normal. Chest x-ray: No acute proces 06/23/2022 Patient underwent cardiac cath today showing and the percent stenosis of the RCA and 50-60% of the LAD. However patient with no chest pain only symptoms related to his complete heart block. 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 Patient is hemodynamically stable. He has temporal pacemaker and IV fluids 06/24/2022 Patient fully awake and oriented, looks comfortable. Denies any chest pain. Vitals are stable Labs reviewed. 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 Ejection fraction is showing normal left ventricular of the upper limits of normal at 45-50% with moderate concentric LVH. He had cardiac cath showing 100% stenosis of the RCA and 50-60% of the LAD. Hemoglobin A1c 7.4 patient is already on metformin and Actos, these medication needs to be adjusted upon discharge. But not currently since he is going for procedure tomorrow possibly with cardiology team for permanent pacemaker placement 06/25. Patient seen and examined this morning. Currently nothing by mouth going for permanent pacemaker placement today. Denies any lightheadedness or dizziness. Denies any chest pain or shortness of breath. Denies any nausea, vomiting or abdominal pain. Vital signs stable Objective - Vital Signs Vital signs: Vital Signs Temp 97.7 F 06/24/22 02:00 Pulse 70 06/24/22 07:30 Resp 12 06/24/22 07:30 BP 155/72 06/24/22 07:30 Pulse Ox 93 L 06/24/22 07:30 FiO2 Intake & Output 06/23/22 06/24/22 06/24/22 18:59 06:59 18:59 Intake Total 575 250 Output Total 475 100 Balance 100 150 Intake: IV 575 150 Sodium Chloride 0.9% 1, 375 150 000 ml @ 75 mls/hr IV . [id number] [facility] Rx#:[id number] Intake, IV Titration 100 Amount ceFAZolin 1 gm In Sodium 100 Chloride 0.9% 50 ml @ 100 mls/hr IVPB Q8H [facility] Rx#: [id number] Output: Urine 475 100 Other: Voiding Method Toilet Toilet # Voids 1 1 # Bowel Movements 1 0 - Exam GENERAL: The patient is alert and oriented x3, not in any acute distress. Well developed, well nourished. HEENT: Pupils are round and equally reacting to light. EOMI. No scleral icterus. No conjunctival pallor. Normocephalic, atraumatic. No pharyngeal erythema. No thyromegaly. CARDIOVASCULAR: S1 and S2 present. No murmurs, rubs, or gallops. PULMONARY: Chest is clear to auscultation, no wheezing or crackles. ABDOMEN: Soft, nontender, nondistended, normoactive bowel sounds. No palpable organomegaly. MUSCULOSKELETAL: No joint swelling or deformity. EXTREMITIES: No cyanosis, clubbing, or pedal edema. NEUROLOGICAL: Gross neurological examination did not reveal any focal deficits. SKIN: No rashes. no petechiae. - Labs CBC & Chem 7: 06/22/22 11:15 06/23/22 09:41 Labs: Abnormal Lab Results - Last 24 Hours (Table) 06/23/22 Range/Units 09:41 Glucose 189 H (74-99) mg/dL Assessment and Plan Assessment: Complete heart block status post temporary pacemaker coronary artery disease with 100% stenosis of the RCA 50-60% of the LAD and 40% of OM1 Presyncope, rule out coronary artery disease Hypertension Hyperlipidemia Diabetes mellitus History of CVA with mild left hemiparesis Plan: This is a pleasant 77 years old male who presents with presyncope and complete heart block status post pacemaker Currently nothing by mouth, going for permanent pacemaker placement today by cardiology Continue with aspirin, Lipitor Continue Coreg Continue with gentle hydration Patient is on antibiotics cefazolin as per cardiology team , we will defer to surgery team to decision to management of these medication. DVT prophylaxis: Subcutaneous heparin GI Prophylaxis: Pepcid PT/OT: Pending Prognosis is guarded Objective - Vital Signs Vital signs: Vital Signs Temp 98.1 F 06/25/22 08:00 Pulse 70 06/25/22 08:00 Resp 12 06/25/22 08:00 BP 182/92 06/25/22 08:00 Pulse Ox 94 L 06/25/22 08:00 FiO2 Intake & Output 06/24/22 06/25/22 06/25/22 18:59 06:59 18:59 Intake Total 50 50 50 Output Total 800 Balance -750 50 50 Weight 96.3 kg Intake: IV 50 Intake, IV Titration 50 50 Amount ceFAZolin 1 gm In Sodium 50 50 Chloride 0.9% 50 ml @ 100 mls/hr IVPB Q8H [facility] Rx#: [id number] Output: Urine 800 Other: Voiding Method Toilet Toilet Toilet # Voids 1 - Labs CBC & Chem 7: 06/22/22 11:15 06/23/22 09:41 Labs: Abnormal Lab Results - Last 24 Hours (Table) 06/24/22 06/24/22 06/24/22 Range/Units 11:37 16:41 19:56 POC Glucose (mg/dL) 251 H 165 H (70-110) mg/dL Hemoglobin A1c 7.4 H (0.0-6.0) % 06/25/22 Range/Units 06:35 POC Glucose (mg/dL) 143 H (70-110) mg/dL Hemoglobin A1c (0.0-6.0) %
--- NOTE | 2022-06-25 15:22 | XR ---
EXAMINATION TYPE: XR chest 1V portable DATE OF EXAM: 06/25/2022 3:16 PM COMPARISON: Chest radiographs from TECHNIQUE: XR chest 1V portable . CLINICAL INDICATION:Male, 77 years old with history of Lead placement check; FINDINGS: Lungs/Pleura: There is no evidence of pleural effusion, focal consolidation, or pneumothorax. Pulmonary vascularity: Unremarkable. Heart/mediastinum: Cardiomediastinal silhouette is unremarkable. Three lead cardiac conduction device overlying the left hemithorax with lead tips projecting over the right ventricle, right atrium and c oronary sinus. Interval removal of right axillary pacemaker. Musculoskeletal: No acute osseous pathology. Levocurvature of the thoracic spine. IMPRESSION: Postsurgical changes with placement of left chest wall 3-lead cardiac pacemaking device as described above. No pneumothorax.
[2022-06-25] MEDS: HYDROcodone/APAP 5-325MG 1 EACH TAB PO PRN ×2 (15:27→21:31)
[2022-06-25 16:46] LABS: Glucose,Whole Blood 137 mg/dL (70-110)
[2022-06-25 20:08] LABS: Glucose,Whole Blood 244 mg/dL (70-110)
[2022-06-26] MEDS: carvediloL 6.25 MG TAB PO SCH (04:09)
[2022-06-26] MEDS: HYDROcodone/APAP 5-325MG 1 EACH TAB PO PRN ×3 (04:09→20:31)
[2022-06-26 05:01] LABS: Basophils % (A) 1 %; Eosinophils # (A) 0.2 k/uL (0-0.7); Eosinophils % (A) 3 %; HGB 13.2 gm/dL (13.0-17.5); Lymphocytes % (A) 18 %; MCHC 32.2 g/dL (31.0-37.0); MCV 99.3 fL (80.0-100.0); Mean Platelet Volume 9.1; Monocytes # (A) 0.4 k/uL (0-1.0); Monocytes % (A) 7 %; Neutrophils % (A) 70 %; Platelet Count 146 k/uL (150-450); RBC 4.13 m/uL (4.30-5.90); RDW 12.4 % (11.5-15.5); WBC 5.6 k/uL (3.8-10.6)
[2022-06-26 05:42] LABS: African American GFR (CKD) >90 (>60 ml/min/1.73 sqM); Anion Gap 6 mmol/L; Blood Urea Nitrogen 17 mg/dL (9-20); Calcium 8.3 mg/dL (8.4-10.2); Carbon Dioxide 27 mmol/L (22-30); Chloride 105 mmol/L (98-107); Glucose 141 mg/dL (74-99); Non-African American GFR(CKD) 85 (>60 ml/min/1.73 sqM); Potassium 4.5 mmol/L (3.5-5.1); Sodium 138 mmol/L (137-145)
[2022-06-26 06:23] LABS: Glucose,Whole Blood 182 mg/dL (70-110)
[2022-06-26] MEDS: INSULIN ASPART (NovoLOG) 100 UNIT/ML VIAL SQ SCH ×4 (06:26→20:32)
[2022-06-26] MEDS: lisinopriL 20 MG TAB PO SCH (06:26)
--- NOTE | 2022-06-26 07:11 | XR ---
EXAMINATION TYPE: XR chest 1V portable DATE OF EXAM: 06/26/2022 CLINICAL HISTORY: Pacemaker placement TECHNIQUE: Single AP portable upright view of the chest is obtained. COMPARISON: Chest x-ray from one day earlier and Older studies. FINDINGS: Cardiac silhouette size stable and upper limits of normal with triple lead pacemaker/defib rillator redemonstrated. Cardiac silhouette size is stable and upper limits of normal. Patchy bibasilar opacities favoring ate lectasis. No pneumothorax seen bilaterally. Underlying scoliosis is present. IMPRESSION: No significant change from one day earlier. No pneumothorax is evident.
--- NOTE | 2022-06-26 07:13 | P.PN ---
Subjective Progress Note Date: 06/26/22 Principal diagnosis: Symptomatic bradycardia The patient is a 77-year-old gentleman who was admitted to the hospital with dizziness and lightheadedness and he was found to be bradycardic. Temporary pacemaker was placed and the patient continues to be pacemaker dependent. He al so was diagnosed with mild cardiomyopathy and he underwent a heart catheterization which revealed chronic total occlusion of the RCA with [id number] collateral and intermediate disease involving the left coronary system. The patient underwent a permanent pacemaker yesterday which was by V pacer. He was seen this morning. He is asymptomatic. Hemodynamically he is hypertensive. Currently he is on carvedilol as well as lisinopril. The lisinopril is at maximum dose. I'm going to add diuretics to the current medical regimen with the chlorthalidone. He reports no pain in the chest and no shortness of breath. The chest x-ray was reviewed. The pacemaker will be interrogated this morning. From the cardiac standpoint of view, the patient potentially can be transferred to [facility]. Objective - Vital Signs Vital signs: Vital Signs Temp 98.1 F 06/26/22 04:00 Pulse 60 06/26/22 04:00 Resp 17 06/26/22 04:00 BP 184/71 06/26/22 04:00 Pulse Ox 96 06/26/22 04:00 FiO2 Intake & Output 06/25/22 06/26/22 06/26/22 18:59 06:59 18:59 Intake Total 50 Output Total 300 900 Balance -250 -900 Weight 95 kg Intake: IV 50 Output: Urine 300 900 Other: Voiding Method Toilet Urinal - Constitutional General appearance: Present: no acute distress - Respiratory Respiratory: bilateral: diminished - Cardiovascular Rhythm: regular Heart sounds: normal: S1, S2 - Labs CBC & Chem 7: 06/26/22 03:42 06/26/22 03:42 Labs: Abnormal Lab Results - Last 24 Hours (Table) 06/25/22 06/25/22 06/26/22 Range/Units 16:44 20:07 03:42 RBC 4.13 L (4.30-5.90) m/uL Plt Count 146 L (150-450) k/uL Glucose (74-99) mg/dL POC Glucose (mg/dL) 137 H 244 H (70-110) mg/dL Calcium (8.4-10.2) mg/dL 06/26/22 06/26/22 Range/Units 03:42 06:22 RBC (4.30-5.90) m/uL Plt Count (150-450) k/uL Glucose 141 H (74-99) mg/dL POC Glucose (mg/dL) 182 H (70-110) mg/dL Calcium 8.3 L (8.4-10.2) mg/dL Assessment and Plan Assessment: Assessment #1 sick sinus syndrome status post biventricular #2 CAD as described above #3 hypertension Plan #1 awaiting for the pacemaker to be interrogated #2 the chest x-ray was reviewed and showed no pneumothorax #3 add diuretics to the current medical regimen to control the blood pressure #4 follow-up with the patient #5 the patient can be transferred to [facility].
[2022-06-26] MEDS: SODIUM CHLORIDE 0.9% 1,000 ML IV SCH (09:33)
[2022-06-26] MEDS: ATORVASTATIN 40 MG TAB PO SCH (09:33)
[2022-06-26] MEDS: CHLORTHALIDONE 25 MG TAB PO SCH (09:33)
[2022-06-26] MEDS: ASPIRIN 81 MG PO SCH (09:33)
--- NOTE | 2022-06-26 10:59 | P.PN ---
Subjective Progress Note Date: 06/26/22 Principal diagnosis: Heart block. Complete heart block, status post temporary pacemaker placement. Visit very pleasant 77-year-old male patient who follows with Dr. Chavez is his primary care provider. 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 He had been having issues with dizziness and lightheadedness and had been seen by his PCP in no significant findings were noted. Today however he had a significant episode of dizziness with some nausea and some oral circumferential numbness while at home. His daughter was present at the time. He was brought into the emergency room for the same. He was found to be in complete heart block and was subsequently taken to the CVL and a temporary right femoral pacemaker was placed. He is set to backup pacing at 50. He was transferred to the intensive care unit for closer observation. The plan is for permanent pacemaker implantation later this evening. He is currently laying flat in bed. Awake and alert in no acute distress. Denies any dizziness, lightheadedness, nausea or chest pain. No palpitations. He is pacing quite often. He has underlying complete heart block still. He is maintaining good O2 saturations in the 90s on room air. He's been afebrile. Chest x-ray revealed no acute pulmonary process. White count 6.1. Hemoglobin 14.7. Sodium 138. Potassium 5.1. BUN 23. Creatinine 1.06. Glucose 173. AST 32. ALT 46. TSH 3.04. Magnesium 1.9. He remains nothing by mouth. He has normal saline at 75 ML's per hour. Reevaluated today on 06/23/22, patient is doing well, he seems to be fully paced, not in any distress, hemodynamically stable, cardiology is planning permanent pacemaker implantation on Saturday or Saturday. Labs today are basically unremarkable/she had normal basic metabolic profile, sugar is 189. Patient is on room air, O2 sat is 95%, blood pressure is 166/76. Heart rate is 70. Reevaluated today on 06/24/22, patient is doing great, he had cardiac catheterization yesterday and he was found to have 100% RCA stenosis, obtuse marginal 140% and mid LAD 50-60% stenosis. Patient was advised medical therapy, patient has no symptoms to suggest angina or coronary artery disease, he is scheduled to undergo permanent pacemaker implantation tomorrow. Patient is doing well otherwise, and no specific complaints. Progress note dated 06/25/2022. 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 The heart block. The patient is to have a pacemaker placed today. He is currently on room air. The patient is not receiving any IV fluids. He is resting com fortably in the ICU, room 257. No new lab data today. Progress note dated 06/26/2022. 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 The patient underwent a pacemaker implantation yesterday, June 25. Currently, he's on room air. Is not receiving any IV fluids. He might be considered for possible discharge today. He is seen in room 257, in the intensive care unit. Labs today include a white count of 5.6, hemoglobin 13.2, hematocrit 41, and a platelet count 246,000. Sodium 138, potassium 4.5, chlorides 105, CO2 27, BUN 17, and creatinine 0.83. Chest x-ray, from this morning, shows no thorax. Objective - Vital Signs Vital signs: Vital Signs Temp 98.2 F 06/26/22 08:00 Pulse 60 06/26/22 08:00 Resp 18 06/26/22 08:00 BP 189/82 06/26/22 08:00 Pulse Ox 93 L 06/26/22 08:00 FiO2 Intake & Output 06/25/22 06/26/22 06/26/22 18:59 06:59 18:59 Intake Total 50 Output Total 300 900 300 Balance -250 -900 -300 Weight 95 kg Intake: IV 50 Output: Urine 300 900 300 Other: Voiding Method Toilet Urinal Urinal - Exam No acute distress, oriented 3. Currently on room air. HEENT examination is grossly unremarkable. Neck supple. Full range of motion. No adenopathy thyromegaly or neck vein distention. Cardiovascular examination reveals regular rhythm rate. S1-S2 normal. No S3 or S4. A soft systolic murmur is noted. HR is 60 bpm. Lungs reveal clear breath sounds. Breath sounds are equal bilaterally. No adventitious lung sounds including wheezes rhonchi or crackles. Abdomen soft bowel sounds are heard. No masses or tenderness. Extremities are intact. No cyanosis clubbing or edema. Skin is without rash or lesion. Neurologic examination is brief but nonfocal. - Labs CBC & Chem 7: 06/26/22 03:42 06/26/22 03:42 Labs: Abnormal Lab Results - Last 24 Hours (Table) 06/25/22 06/25/22 06/26/22 Range/Units 16:44 20:07 03:42 RBC 4.13 L (4.30-5.90) m/uL Plt Count 146 L (150-450) k/uL Glucose (74-99) mg/dL POC Glucose (mg/dL) 137 H 244 H (70-110) mg/dL Calcium (8.4-10.2) mg/dL 06/26/22 06/26/22 Range/Units 03:42 06:22 RBC (4.30-5.90) m/uL Plt Count (150-450) k/uL Glucose 141 H (74-99) mg/dL POC Glucose (mg/dL) 182 H (70-110) mg/dL Calcium 8.3 L (8.4-10.2) mg/dL Assessment and Plan Assessment: Complete heart block, requiring temporary pacemaker placement, S/P pacemaker implantation, on 06/25/2022. Benign essential hypertension. Type 2 diabetes mellitus. Hyperlipidemia. History of CVA, with residual left-sided weakness. CAD, with recent cardiac catheterization and medical management. Plan: Plan dated 06/25/2022. Labs, x-rays, and medications are all reviewed. The patient will likely have a pacemaker implanted today. Additional recommendations and suggestions are forthcoming. His coronary disease we be managed medically. We will continue to follow. Prognosis is thought to be generally good. Plan dated 06/26/2022. The patient may be considered for possible discharge today. Labs, x-rays, and medications are reviewed. His chest x-ray reveals no pneumothorax. His labs look within normal range. His vital signs are stable. We will continue to follow. No additional recommendations are made at this time. Time with Patient: Less than 30
[2022-06-26 11:36] LABS: Glucose,Whole Blood 171 mg/dL (70-110)
[2022-06-26] MEDS ORDERED: hydrALAZINE HCL 20 MG/ML 1 ML VIAL IVP PRN (12:13)
[2022-06-26] MEDS ORDERED: hydrALAZINE HCL 10 MG TAB PO SCH (12:45)
--- NOTE | 2022-06-26 12:48 | P.PN ---
Subjective Progress Note Date: 06/26/22 This is a pleasant 77 years old male with past medical history of hypertension, hyperlipidemia, diabetes mellitus, CVA with mild left hemiparesis. He is a patient of Dr. Chavez Patient has been having episodes of weakness and presyncope for about one to 2 months. He checked heart rate 1 time and noticed it was low at 35, he went to see his PCP Dr. Chavez, EKG strip in the office was looking normal. As per patient then was discharge, however once he got home within a day he developed more severe weakness and dizziness and this time he was feeling numbness as well for example numbness around his mouth so he got concerned and decided to come to emergency room. Patient currently denies any chest pain or dyspnea or coughing. No abdominal pain or vomiting or diarrhea, no urinary complaints. No fever. On admission his heart rate was 40-46, currently improved 50-51. The rest of vital signs stable and patient is afebrile. Patient has unremarkable CBC, BMP and liver enzymes. TSH is normal. Chest x-ray: No acute proces 06/23/2022 Patient underwent cardiac cath today showing and the percent stenosis of the RCA and 50-60% of the LAD. However patient with no chest pain only symptoms related to his complete heart block. Therefore novelty chain maker recommended conservative management and follow-up as an outpatient. Patient is hemodynamically stable. He has temporal pacemaker and IV fluids 06/24/2022 Patient fully awake and oriented, looks comfortable. Denies any chest pain. Vitals are stable Labs reviewed. Buffer Operator: The patient closely. Ejection fraction is showing normal left ventricular of the upper limits of normal at 45-50% with moderate concentric LVH. He had cardiac cath showing 100% stenosis of the RCA and 50-60% of the LAD. Hemoglobin A1c 7.4 patient is already on metformin and Actos, these medication needs to be adjusted upon discharge. But not currently since he is going for procedure tomorrow possibly with cardiology team for permanent pacemaker placement 06/25. Patient seen and examined this morning. Currently nothing by mouth going for permanent pacemaker placement today. Denies any lightheadedness or dizziness. Denies any chest pain or shortness of breath. Denies any nausea, vomiting or abdominal pain. Vital signs stable 06/26/22. Patient seen and examined. Patient pacemaker placed yesterday. This morning patient is hypertensive with systolic ranging between 180-200. Cardiology had added chlorthalidone. Denies any chest pain or shortness of breath. No clubbing or nausea, vomiting or abdominal pain. Labs reviewed. Case discussed with nursing staff Objective - Vital Signs Vital signs: Vital Signs Temp 97.7 F 06/24/22 02:00 Pulse 70 06/24/22 07:30 Resp 12 06/24/22 07:30 BP 155/72 06/24/22 07:30 Pulse Ox 93 L 06/24/22 07:30 FiO2 Intake & Output 06/23/22 06/24/22 06/24/22 18:59 06:59 18:59 Intake Total 575 250 Output Total 475 100 Balance 100 150 Intake: IV 575 150 Sodium Chloride 0.9% 1, 375 150 000 ml @ 75 mls/hr IV . [id number] [facility] Rx#:[id number] Intake, IV Titration 100 Amount ceFAZolin 1 gm In Sodium 100 Chloride 0.9% 50 ml @ 100 mls/hr IVPB Q8H [facility] Rx#: [id number] Output: Urine 475 100 Other: Voiding Method Toilet Toilet # Voids 1 1 # Bowel Movements 1 0 - Exam GENERAL: The patient is alert and oriented x3, not in any acute distress. Well developed, well nourished. HEENT: Pupils are round and equally reacting to light. EOMI. No scleral icterus. No conjunctival pallor. Normocephalic, atraumatic. No pharyngeal erythema. No thyromegaly. CARDIOVASCULAR: S1 and S2 present. No murmurs, rubs, or gallops. PULMONARY: Chest is clear to auscultation, no wheezing or crackles. Left-sided pacemaker site seen no evidence of erythema ABDOMEN: Soft, nontender, nondistended, normoactive bowel sounds. No palpable organomegaly. MUSCULOSKELETAL: No joint swelling or deformity. EXTREMITIES: No cyanosis, clubbing, or pedal edema. NEUROLOGICAL: Gross neurological examination did not reveal any focal deficits. SKIN: No rashes. no petechiae. - Labs CBC & Chem 7: 06/22/22 11:15 06/23/22 09:41 Labs: Abnormal Lab Results - Last 24 Hours (Table) 06/23/22 Range/Units 09:41 Glucose 189 H (74-99) mg/dL Assessment and Plan Assessment: Complete heart block status post permanent pacemaker coronary artery disease with 100% stenosis of the RCA 50-60% of the LAD and 40% of OM1 Presyncope, rule out coronary artery disease Hypertension Hyperlipidemia Diabetes mellitus History of CVA with mild left hemiparesis Plan: Continue telemetry monitoring. Status post temporary pacemaker Continue with aspirin, Lipitor Continue Coreg Add chlorthalidone Possible discharge in next 24 hours Objective - Vital Signs Vital signs: Vital Signs Temp 98.2 F 06/26/22 08:00 Pulse 60 06/26/22 08:00 Resp 18 06/26/22 08:00 BP 189/82 06/26/22 08:00 Pulse Ox 93 L 06/26/22 08:00 FiO2 Intake & Output 06/25/22 06/26/22 06/26/22 18:59 06:59 18:59 Intake Total 50 Output Total 300 900 300 Balance -250 -900 -300 Weight 95 kg Intake: IV 50 Output: Urine 300 900 300 Other: Voiding Method Toilet Urinal Urinal - Labs CBC & Chem 7: 06/26/22 03:42 06/26/22 03:42 Labs: Abnormal Lab Results - Last 24 Hours (Table) 06/25/22 06/25/22 06/26/22 Range/Units 16:44 20:07 03:42 RBC 4.13 L (4.30-5.90) m/uL Plt Count 146 L (150-450) k/uL Glucose (74-99) mg/dL POC Glucose (mg/dL) 137 H 244 H (70-110) mg/dL Calcium (8.4-10.2) mg/dL 06/26/22 06/26/22 06/26/22 Range/Units 03:42 06:22 11:35 RBC (4.30-5.90) m/uL Plt Count (150-450) k/uL Glucose 141 H (74-99) mg/dL POC Glucose (mg/dL) 182 H 171 H (70-110) mg/dL Calcium 8.3 L (8.4-10.2) mg/dL
[2022-06-26] MEDS ORDERED: carvediloL 6.25 MG TAB PO STA (12:51)
[2022-06-26 17:00] LABS: Glucose,Whole Blood 188 mg/dL (70-110)
[2022-06-26] MEDS: carvediloL 12.5 MG TAB PO SCH (17:06)
[2022-06-26 20:14] LABS: Glucose,Whole Blood 171 mg/dL (70-110)
[2022-06-27 00:18] VITALS: RESP 18
[2022-06-27] MEDS: HYDROcodone/APAP 5-325MG 1 EACH TAB PO PRN (02:28)
[2022-06-27 06:33] LABS: Glucose,Whole Blood 175 mg/dL (70-110)
--- NOTE | 2022-06-27 06:37 | P.PN ---
Subjective Progress Note Date: 06/27/22 Principal diagnosis: Symptomatic bradycardia The patient is a 77-year-old gentleman who was admitted to the hospital with dizziness and lightheadedness and he was found to be bradycardic. Temporary pacemaker was placed and the patient continues to be pacemaker dependent. He al so was diagnosed with mild cardiomyopathy and he underwent a heart catheterization which revealed chronic total occlusion of the RCA with [id number] collateral and intermediate disease involving the left coronary system. The patient was seen this morning. He is asymptomatic. He is hemodynamically stable was slightly elevated blood pressure. Yesterday chlorthalidone was admitted to the current medical regimen and definitely his pressure is somewhat better. The chest x-ray was reviewed and no evidence of pneumothorax. He underwent permanent pacemaker placement 2 days ago. From a cardiovascular standpoint of view, the patient can be discharged home. Objective - Vital Signs Vital signs: Vital Signs Temp 98.0 F 06/27/22 04:00 Pulse 60 06/27/22 04:00 Resp 18 06/27/22 04:00 BP 123/54 06/27/22 04:00 Pulse Ox 95 06/27/22 04:00 FiO2 Intake & Output 06/26/22 06/26/22 06/27/22 06:59 18:59 06:59 Output Total 900 600 150 Balance -900 -600 -150 Weight 95 kg 91 kg Output: Urine 900 600 150 Other: Voiding Method Urinal Urinal Urinal - Constitutional General appearance: Present: no acute distress - Respiratory Respiratory: bilateral: CTA - Cardiovascular Rhythm: regular Heart sounds: normal: S1, S2 - Labs CBC & Chem 7: 06/26/22 03:42 06/26/22 03:42 Labs: Abnormal Lab Results - Last 24 Hours (Table) 06/22/22 06/26/22 06/26/22 Range/Units 19:30 11:35 16:59 POC Glucose (mg/dL) 171 H 188 H (70-110) mg/dL Angiotensin Convert Enz 4 L (8-52) U/L 06/26/22 06/27/22 Range/Units 20:12 06:31 POC Glucose (mg/dL) 171 H 175 H (70-110) mg/dL Angiotensin Convert Enz (8-52) U/L Assessment and Plan Assessment: Assessment #1 sick sinus syndrome status post biventricular #2 CAD as described above #3 hypertension Plan #1 the patient is asymptomatic and hemodynamically stable #2 the patient can be discharged home
[2022-06-27] MEDS: carvediloL 12.5 MG TAB PO SCH (07:02)
[2022-06-27] MEDS: INSULIN ASPART (NovoLOG) 100 UNIT/ML VIAL SQ SCH (07:03)
[2022-06-27] MEDS: ATORVASTATIN 40 MG TAB PO SCH (08:30)
[2022-06-27] MEDS: lisinopriL 20 MG TAB PO SCH (08:30)
[2022-06-27] MEDS: ASPIRIN 81 MG PO SCH (08:30)
[2022-06-27] MEDS: CHLORTHALIDONE 25 MG TAB PO SCH (08:30)
[2022-06-27 08:58] VITALS: BP 164/78; PULSE 67; TEMP 98.1
--- NOTE | 2022-06-27 09:23 | P.DS ---
Providers Date of admission: 06/22/22 11:26 Expected date of discharge: 06/27/22 Attending physician: Sofi Chavis Consults: 06/22/22 11:26 Consult Physician Stat Consulting Provider: Jericho Ragland Consult Reason/Comments: Heart block Do you want consulting provider notified?: Already Contacted 06/22/22 11:29 Consult Physician Stat Consulting Provider: Kingston Goss Reason/Comments: Heart block Do you want consulting provider notified?: Already Contacted Primary care physician: Marcelo Chavez Hospital Course: Discharge diagnoses; Complete heart block status post permanent pacemaker coronary artery disease with 100% stenosis of the RCA 50-60% of the LAD and 40% of OM1 Presyncope, rule out coronary artery disease Hypertension Hyperlipidemia Diabetes mellitus History of CVA with mild left hemiparesis Plan: Status post temporary pacemaker Continue with aspirin, Lipitor Continue Coreg and chlorthalidone Blood pressure better controlled. Outpatient follow-up with cardiology. Hospital course; This is a pleasant 77 years old male with past medical history of hypertension, hyperlipidemia, diabetes mellitus, CVA with mild left hemiparesis. He is a patient of Dr. Chavez Patient has been having episodes of weakness and presyncope for about one to 2 months. He checked heart rate 1 time and noticed it was low at 35, he went to see his PCP Dr. Chavez, EKG strip in the office was looking normal. As per patient then was discharge, however once he got home within a day he developed more severe weakness and dizziness and this time he was feeling numbness as well for example numbness around his mouth so he got concerned and decided to come to emergency room. Patient currently denies any chest pain or dyspnea or coughing. No abdominal pain or vomiting or diarrhea, no urinary complaints. No fever. On admission his heart rate was 40-46, currently improved 50-51. The rest of vital signs stable and patient is afebrile. Patient has unremarkable CBC, BMP and liver enzymes. TSH is normal. Chest x-ray: No acute proces 06/23/2022 Patient underwent cardiac cath today showing and the percent stenosis of the RCA and 50-60% of the LAD. However patient with no chest pain only symptoms related to his complete heart block. Therefore dietary cook recommended conservative management and follow-up as an outpatient. Patient is hemodynamically stable. He has temporal pacemaker and IV fluids 06/24/2022 Patient fully awake and oriented, looks comfortable. Denies any chest pain. Vitals are stable Labs reviewed. Disease Control Inspector: The patient closely. Ejection fraction is showing normal left ventricular of the upper limits of normal at 45-50% with moderate concentric LVH. He had cardiac cath showing 100% stenosis of the RCA and 50-60% of the LAD. Hemoglobin A1c 7.4 patient is already on metformin and Actos, these medication needs to be adjusted upon discharge. But not currently since he is going for procedure tomorrow possibly with cardiology team for permanent pacemaker placement 06/25. Patient seen and examined this morning. Currently nothing by mouth going for permanent pacemaker placement today. Denies any lightheadedness or dizziness. Denies any chest pain or shortness of breath. Denies any nausea, vomiting or abdominal pain. Vital signs stable 06/26/22. Patient seen and examined. Patient pacemaker placed yesterday. This morning patient is hypertensive with systolic ranging between 180-200. Cardiology had added chlorthalidone. Denies any chest pain or shortness of breath. No clubbing or nausea, vomiting or abdominal pain. Labs reviewed. Case discussed with nursing staff 06/27/22. Patient's blood pressure is better controlled on chlorthalidone, Coreg and lisinopril. Cardiology cleared the patient for discharge Physical examination GENERAL: The patient is alert and oriented x3, not in any acute distress. Well developed, well nourished. HEENT: Pupils are round and equally reacting to light. EOMI. No scleral icterus. No conjunctival pallor. Normocephalic, atraumatic. No pharyngeal erythema. No thyromegaly. CARDIOVASCULAR: S1 and S2 present. No murmurs, rubs, or gallops. Left-sided pacemaker pocket seen, no erythema PULMONARY: Chest is clear to auscultation, no wheezing or crackles. ABDOMEN: Soft, nontender, nondistended, normoactive bowel sounds. No palpable organomegaly. MUSCULOSKELETAL: No joint swelling or deformity. EXTREMITIES: No cyanosis, clubbing, or pedal edema. NEUROLOGICAL: Gross neurological examination did not reveal any focal deficits. SKIN: No rashes. no petechiae. Patient Condition at Discharge: Good Plan - Discharge Summary Discharge Rx Participant: Yes New Discharge Prescriptions: New Aspirin 81 mg PO DAILY #30 tab carvediloL [Coreg*] 12.5 mg PO BID-W/MEALS #60 tab Chlorthalidone [Hygroton] 25 mg PO DAILY #30 tab Atorvastatin [Lipitor] 40 mg PO DAILY #30 tab lisinopriL [Zestril] 40 mg PO DAILY #60 tab Continue Pioglitazone HCl [Actos] 15 mg PO DAILY allopurinoL [Zyloprim] 100 mg PO DAILY Fluticasone Nasal [place] [Flonase Nasal [place]] 1 - 2 spr EA NOSTRIL BID PRN PRN Reason: Allergy Symptoms metFORMIN HCL ER [Glucophage XR] 1,000 mg PO BID Cetirizine HCl [Zyrtec] 10 mg PO DAILY Discontinued Atorvastatin [Lipitor] 20 mg PO DAILY Enalapril [Vasotec] 20 mg PO DAILY amLODIPine BESYLATE 10 mg PO DAILY Discharge Medication List Pioglitazone HCl [Actos] 15 mg PO DAILY 05/23/16 [History] allopurinoL [Zyloprim] 100 mg PO DAILY 05/23/16 [History] Cetirizine HCl [Zyrtec] 10 mg PO DAILY 06/22/22 [History] Fluticasone Nasal [place] [Flonase Nasal [place]] 1 - 2 spr EA NOSTRIL BID PRN 06/22/22 [History] metFORMIN HCL ER [Glucophage XR] 1,000 mg PO BID 06/22/22 [History] Aspirin 81 mg PO DAILY #30 tab 06/27/22 [Rx] Atorvastatin [Lipitor] 40 mg PO DAILY #30 tab 06/27/22 [Rx] Chlorthalidone [Hygroton] 25 mg PO DAILY #30 tab 06/27/22 [Rx] carvediloL [Coreg*] 12.5 mg PO BID-W/MEALS #60 tab 06/27/22 [Rx] lisinopriL [Zestril] 40 mg PO DAILY #60 tab 06/27/22 [Rx] Follow up Appointment(s)/Referral(s): Marcelo Chavez III, MD [Primary Care Provider] - 1-2 days Jan Diaz MD [STAFF PHYSICIAN] - 1 Week Activity/Diet/Wound Care/Special Instructions: PATIENT EDUCATION MATERIAL Instructions following a heart rhythm device implant. 1. Keep dressing DRY for 5 DAYS. You may cover the area with Saran or Cling Wrap, prior to a shower. 2. The dressing will be removed in the Device [facility] at [facility]. Absorbable sutures were used to close the wound. 3. Avoid raising the left arm above the shoulder level. 4 week restriction 4. Avoid arm movements, like backscratching, rubbing the head, or pulling on a cord. 4 weeks restriction 5. Gentle range of motion movements of the shoulder, closest to the incision should be performed to avoid a frozen shoulder. (Pendulum exercises of the shoulder) 6. The opposite arm may be used freely. 7. Avoid driving for 7 days. 8. Avoid activities such as golfing, swimming, weed whacking, lifting more than 10 pounds weight, bowling, gymnastics and weight training/lifting. (6 weeks restriction) 9. Activities such as wood chopping with an axe, pull-ups in the gymnasium, power lifting, arc-welding, being close to home induction cooktops will always be a problem. 10. Arm sling is only a reminder not to raise the arm above the head. You do not need to keep the arm completely immobilized. Your free to move the arm and use it and for normal activities. In case of any problems, please call [facility], Tony Leonard, @ [phone], Attention: Device Clinic Device clinic follow-up in 5 days Follow-up with primary dietary cook in 1 months Discharge Disposition: HOME SELF-CARE
--- NOTE | 2022-06-27 10:49 | P.PN ---
Subjective Progress Note Date: 06/27/22 Principal diagnosis: Heart block. Complete heart block, status post temporary pacemaker placement. Visit very pleasant 77-year-old male patient who follows with Dr. Chavez is his primary care provider. 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 He had been having issues with dizziness and lightheadedness and had been seen by his PCP in no significant findings were noted. Today however he had a significant episode of dizziness with some nausea and some oral circumferential numbness while at home. His daughter was present at the time. He was brought into the emergency room for the same. He was found to be in complete heart block and was subsequently taken to the CVL and a temporary right femoral pacemaker was placed. He is set to backup pacing at 50. He was transferred to the intensive care unit for closer observation. The plan is for permanent pacemaker implantation later this evening. He is currently laying flat in bed. Awake and alert in no acute distress. Denies any dizziness, lightheadedness, nausea or chest pain. No palpitations. He is pacing quite often. He has underlying complete heart block still. He is maintaining good O2 saturations in the 90s on room air. He's been afebrile. Chest x-ray revealed no acute pulmonary process. White count 6.1. Hemoglobin 14.7. Sodium 138. Potassium 5.1. BUN 23. Creatinine 1.06. Glucose 173. AST 32. ALT 46. TSH 3.04. Magnesium 1.9. He remains nothing by mouth. He has normal saline at 75 ML's per hour. Reevaluated today on 06/23/22, patient is doing well, he seems to be fully paced, not in any distress, hemodynamically stable, cardiology is planning permanent pacemaker implantation on Saturday or Saturday. Labs today are basically unremarkable/she had normal basic metabolic profile, sugar is 189. Patient is on room air, O2 sat is 95%, blood pressure is 166/76. Heart rate is 70. Reevaluated today on 06/24/22, patient is doing great, he had cardiac catheterization yesterday and he was found to have 100% RCA stenosis, obtuse marginal 140% and mid LAD 50-60% stenosis. Patient was advised medical therapy, patient has no symptoms to suggest angina or coronary artery disease, he is scheduled to undergo permanent pacemaker implantation tomorrow. Patient is doing well otherwise, and no specific complaints. Progress note dated 06/25/2022. 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 The heart block. The patient is to have a pacemaker placed today. He is currently on room air. The patient is not receiving any IV fluids. He is resting com fortably in the ICU, room 257. No new lab data today. Progress note dated 06/26/2022. 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 The patient underwent a pacemaker implantation yesterday, June 25. Currently, he's on room air. Is not receiving any IV fluids. He might be considered for possible discharge today. He is seen in room 257, in the intensive care unit. Labs today include a white count of 5.6, hemoglobin 13.2, hematocrit 41, and a platelet count 246,000. Sodium 138, potassium 4.5, chlorides 105, CO2 27, BUN 17, and creatinine 0.83. Chest x-ray, from this morning, shows no thorax. Progress note dated 06/27/2022. 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 The patient underwent a pacemaker implantation 2 days ago. Today's postop day #2. The patient will likely be discharged home today. He is currently on room air. He's not receiving any IV fluids. No new labs today. No new chest x-rays today. Objective - Vital Signs Vital signs: Vital Signs Temp 98.1 F 06/27/22 08:00 Pulse 67 06/27/22 08:00 Resp 18 06/27/22 08:00 BP 164/78 06/27/22 08:00 Pulse Ox 94 L 06/27/22 08:00 FiO2 Intake & Output 06/26/22 06/27/22 06/27/22 18:59 06:59 18:59 Intake Total 240 Output Total 600 150 Balance -600 -150 240 Weight 91 kg Intake: Oral 240 Output: Urine 600 150 Other: Voiding Method Urinal Urinal Toilet - Exam No acute distress, oriented 3. Currently on room air. HEENT examination is grossly unremarkable. Neck supple. Full range of motion. No adenopathy thyromegaly or neck vein distention. Cardiovascular examination reveals regular rhythm rate. S1-S2 normal. No S3 or S4. A soft systolic murmur is noted. HR is 67 bpm. Lungs reveal clear breath sounds. Breath sounds are equal bilaterally. No adventitious lung sounds including wheezes rhonchi or crackles. Room air saturation is 94%. Abdomen soft bowel sounds are heard. No masses or tenderness. Extremities are intact. No cyanosis clubbing or edema. Skin is without rash or lesion. Neurologic examination is brief but nonfocal. - Labs CBC & Chem 7: 06/26/22 03:42 06/26/22 03:42 Labs: Abnormal Lab Results - Last 24 Hours (Table) 06/22/22 06/26/22 06/26/22 Range/Units 19:30 11:35 16:59 POC Glucose (mg/dL) 171 H 188 H (70-110) mg/dL Angiotensin Convert Enz 4 L (8-52) U/L 06/26/22 06/27/22 Range/Units 20:12 06:31 POC Glucose (mg/dL) 171 H 175 H (70-110) mg/dL Angiotensin Convert Enz (8-52) U/L Assessment and Plan Assessment: Complete heart block, requiring temporary pacemaker placement, S/P pacemaker implantation, on 06/25/2022. Benign essential hypertension. Type 2 diabetes mellitus. Hyperlipidemia. History of CVA, with residual left-sided weakness. CAD, with recent cardiac catheterization and medical management. Plan: Plan dated 06/25/2022. Labs, x-rays, and medications are all reviewed. The patient will likely have a pacemaker implanted today. Additional recommendations and suggestions are forthcoming. His coronary disease we be managed medically. We will continue to follow. Prognosis is thought to be generally good. Plan dated 06/26/2022. The patient may be considered for possible discharge today. Labs, x-rays, and medications are reviewed. His chest x-ray reveals no pneumothorax. His labs look within normal range. His vital signs are stable. We will continue to follow. No additional recommendations are made at this time. Plan dated 06/27/2022. The patient's doing well. He is not on any supplemental oxygen. Labs, x-rays, and medications are reviewed. The patient will likely be discharged home later today. Time with Patient: Less than 30
[2022-06-27 14:34] LABS: Lyme IgG/IgM 0.05 Index
== END 2022-06-27 10:49 | disposition home or self-care (01) | DRG 243 ==
LOC: EC 10:55 → 2SICU 11:26
PROVIDERS: ADMIT Hospitalist; ATTEND Hospitalist
PROC: 02PA3MZ Removal of Cardiac Lead from Heart, Percutaneous Approach (ICD-10-PCS; 2022-06-22)
PROC: 02HK3JZ Insertion of Pacemaker Lead into Right Ventricle, Percutaneous Approach (ICD-10-PCS; 2022-06-22)
PROC: 5A1223Z Performance of Cardiac Pacing, Continuous (ICD-10-PCS; 2022-06-22)
PROC: B2111ZZ Fluoroscopy of Multiple Coronary Arteries using Low Osmolar Contrast (ICD-10-PCS; 2022-06-23)
PROC: 4A023N7 Measurement of Cardiac Sampling and Pressure, Left Heart, Percutaneous Approach (ICD-10-PCS; 2022-06-23)
PROC: 02PA3MZ Removal of Cardiac Lead from Heart, Percutaneous Approach (ICD-10-PCS; 2022-06-25)
PROC: 02H63JZ Insertion of Pacemaker Lead into Right Atrium, Percutaneous Approach (ICD-10-PCS; principal; 2022-06-25 14:05)
PROC: 02HK3JZ Insertion of Pacemaker Lead into Right Ventricle, Percutaneous Approach (ICD-10-PCS; principal; 2022-06-25 14:05)
PROC: 0JH607Z Insertion of Cardiac Resynchronization Pacemaker Pulse Generator into Chest Subcutaneous Tissue and Fascia, Open Approach (ICD-10-PCS; principal; 2022-06-25 14:05)
DX: I44.2 Atrioventricular block, complete (principal); I69.354 Hemiplegia and hemiparesis following cerebral infarction affecting left non-dominant side; I47.2 Ventricular tachycardia; I25.10 Atherosclerotic heart disease of native coronary artery without angina pectoris; I25.82 Chronic total occlusion of coronary artery; I49.5 Sick sinus syndrome; E11.9 Type 2 diabetes mellitus without complications; I25.5 Ischemic cardiomyopathy; I45.10 Unspecified right bundle-branch block; E78.5 Hyperlipidemia, unspecified; I10 Essential (primary) hypertension; M19.90 Unspecified osteoarthritis, unspecified site; F17.200 Nicotine dependence, unspecified, uncomplicated; Z79.84 Long term (current) use of oral hypoglycemic drugs; Z79.899 Other long term (current) drug therapy; Z85.46 Personal history of malignant neoplasm of prostate; Z87.442 Personal history of urinary calculi; Z88.1 Allergy status to other antibiotic agents; Z88.8 Allergy status to other drugs, medicaments and biological substances; Z91.018 Allergy to other foods
CPT/HCPCS: 33208; 33210; 33225; 36415; 71045; 80048; 80053; 82164; 83036; 83735; 84436; 84439; 84443; 84480; 84484; 85025; 85610; 85652; 85730; 86140; 86618; 93005; 93306; 93458; 96374; 96375; 99291

== ENCOUNTER 2023-04-02 13:49 | Emergency (ER) | payer MEDICARE ==
[2023-04-02] MEDS ORDERED: KETOROLAC 15 MG/ML 1 ML VIAL IVP STA (16:36)
[2023-04-02] MEDS ORDERED: KETOROLAC 15 MG/ML 1 ML VIAL IM STA (16:46)
--- NOTE | 2023-04-02 16:50 | ED ---
Back Pain HPI - General Chief Complaint: Back Pain/Injury Stated Complaint: Back pain Time Seen by Provider: 04/02/23 16:05 Source: patient Limitations: no limitations - History of Present Illness Initial Comments: A 77-year-old with past medical history significant for sciatica of the right side presents to the ED with a chief complaint of right hip pain. She states that he was at physical therapy this morning when he noted worsening pain of the right hip. Denies any new injury or trauma. Due to this, physical therapist recommended that he present to the ED for further treatment. Patient notes that he finished a Medrol Dosepak 2 days ago. Has been taking Vicodin for the pain. She states that he has follow-up with an orthopedic surgeon on 04/08/23. Denies chest pain or shortness of breath. - Related Data Home Medications Medication Instructions Recorded Confirmed Pioglitazone HCl [Actos] 15 mg PO DAILY 05/23/16 06/22/22 allopurinoL [Zyloprim] 100 mg PO DAILY 05/23/16 06/22/22 Cetirizine HCl [Zyrtec] 10 mg PO DAILY 06/22/22 06/22/22 Fluticasone Nasal Rowe [Flonase 1 - 2 spr EA NOSTRIL BID PRN 06/22/22 06/22/22 Nasal Rowe] metFORMIN HCL ER [Glucophage XR] 1,000 mg PO BID 06/22/22 06/22/22 Previous Rx's Medication Instructions Recorded Aspirin 81 mg PO DAILY #30 tab 06/27/22 Atorvastatin [Lipitor] 40 mg PO DAILY #30 tab 06/27/22 Chlorthalidone [Hygroton] 25 mg PO DAILY #30 tab 06/27/22 carvediloL [Coreg*] 12.5 mg PO BID-W/MEALS #60 tab 06/27/22 lisinopriL [Zestril] 40 mg PO DAILY #60 tab 06/27/22 Lidocaine 5% Patch [Lidoderm 5% 1 patch TOPICAL DAILY 7 Days #7 04/02/23 Patch] patch methocarbamoL [Robaxin] 500 mg PO TID PRN #15 tab 04/02/23 Allergies Allergy/AdvReac Type Severity Reaction Status Date / Time levofloxacin [From Levaquin] Allergy Dyspnea Verified 06/22/22 13:30 mefloquine HCl [From Lariam] Allergy NIGHTMARES Verified 06/22/22 13:30 ofloxacin [From Floxin] Allergy JOINT PAIN Verified 06/22/22 13:30 SYRIAC PEPPERS Allergy Dyspnea,STR Uncoded 06/22/22 13:30 IDOR Review of Systems ROS Statement: Those systems with pertinent positive or pertinent negative responses have been documented in the HPI. ROS Other: All systems not noted in ROS Statement are negative. Past Medical History Past Medical History: Cancer, CVA/TIA, Diabetes Mellitus, Hypertension, Osteoarthritis (OA), Prostate Disorder Additional Past Medical History / Comment(s): PROSTATE CANCER, KIDNEY STONE History of Any Multi-Drug Resistant Organisms: None Reported Past Surgical History: Adenoidectomy, Orthopedic Surgery, Tonsillectomy Additional Past Surgical History / Comment(s): PROSTATE SURGERY, LEFT KNEE ARTHROSCOPIC Past Anesthesia/Blood Transfusion Reactions: No Reported Reaction Past Psychological History: No Psychological Hx Reported Smoking Status: Current every day smoker, Current some day smoker Past Alcohol Use History: Occasional Past Drug Use History: None Reported - Past Family History Mother Family Medical History: No Reported History General Exam Limitations: no limitations General appearance: alert, in no apparent distress Head exam: Present: atraumatic, normocephalic Eye exam: Present: normal appearance Neck exam: Present: normal inspection, other (No midline cervical spinal tenderness to palpation) Respiratory exam: Present: normal lung sounds bilaterally Cardiovascular Exam: Present: regular rate, normal rhythm Extremities exam: Present: other (Strength and Sensation of bilateral upper and lower extremities 5/5.) Neurological exam: Present: alert, oriented X3 Course Vital Signs 04/02/23 14:06 Temperature 97.4 F L Pulse Rate 80 Respiratory 18 Rate Blood Pressure 163/53 O2 Sat by Pulse 99 Oximetry Medical Decision Making - Medical Decision Making Was pt. sent in by a medical professional or institution (, PA, OFFICE HELPER, urgent care, hospital, or senior care...) When possible be specific @ -No Did you speak to anyone other than the patient for history (EMS, parent, family, police, friend...)? What history was obtained from this source @ -No Did you review nursing and triage notes (agree or disagree)? Why? @ -[I reviewed and agree with nursing and triage notes] Were old charts reviewed (outside hosp., previous admission, EMS record, old EKG, old radiological studies, urgent care reports/EKG's, senior care records)? Report findings @ -No old charts were reviewed Differential Diagnosis (chest pain, altered mental status, abdominal pain women, abdominal pain men, vaginal bleeding, weakness, fever, dyspnea, syncope, headache, dizziness, GI bleed, back pain, seizure, CVA, palpatations, mental health, musculoskeletal)? @ -Differential Back Pain: Strain, zoster, cauda equina syndrome, epidural abscess, vertebral oste omyelitis, discitis, fracture, subluxation, disc herniation, DJD, spinal stenosis, dissection, AAA, pancreatitis, peptic ulcer disease, pyelonephritis, kidney stone, this is not meant to be an all-inclusive list. EKG interpreted by me (3pts min.). @ -None X-rays interpreted by me (1pt min.). @ -None done CT interpreted by me (1pt min.). @ -None done U/S interpreted by me (1pt. min.). @ -None done What testing was considered but not performed or refused? (CT, X-rays, U/S, labs)? Why? @ -Imaging of the hip and back considered however patient notes no new injury. What meds were considered but not given or refused? Why? @ -None Did you discuss the management of the patient with other professionals (professionals i.e. , PA, OFFICE HELPER, lab, RT, psych nurse, social media strategist, business specialist, teacher, chief digital officer, patient case coordinator)? Give summary @ -No Was smoking cessation discussed for >3mins.? @ -No Was critical care preformed (if so, how long)? @ -No Were there social determinants of health that impacted care today? How? (Homelessness, low income, unemployed, alcoholism, drug addiction, transportation, low edu. Level, literacy, decrease access to med. care, longterm, rehab)? @ -No Was there de-escalation of care discussed even if they declined (Discuss DNR or withdrawal of care, Hospice)? DNR status @ -No What co-morbidities impacted this encounter? (DM, HTN, Smoking, COPD, CAD, Cancer, CVA, ARF, Chemo, Hep., AIDS, mental health diagnosis, sleep apnea, morbid obesity)? @ -None Was patient admitted / discharged? Hospital course, mention meds given and route, prescriptions, significant lab abnormalities, going to OR and other pertinent info. @ -Discharge. Patient received Toradol with improvement of the pain. Discharged with prescriptions for Robaxin and lidocaine patches. Will follow up with orthopedic surgeon as scheduled. Discussed return precautions patient verbalizes agreement. Undiagnosed new problem with uncertain prognosis? @ -No Drug Therapy requiring intensive monitoring for toxicity (Heparin, Nitro, Insulin, Cardizem)? @ -No Were any procedures done? @ -No Diagnosis/symptom? @ -Sciatica Acute, or Chronic, or Acute on Chronic? @ -Acute on chronic Uncomplicated (without systemic symptoms) or Complicated (systemic symptoms)? @ -Uncomplicated Side effects of treatment? @ -No Exacerbation, Progression, or Severe Exacerbation? @ -No Poses a threat to life or bodily function? How? (Chest pain, [place], PA, pneumonia, PE, COPD, DKA, ARF, appy, cholecystitis, CVA, Diverticulitis, Homicidal, Suicidal, threat to staff... and all critical care pts) @ -No Disposition Clinical Impression: Sciatica Disposition: HOME SELF-CARE Condition: Good Instructions (If sedation given, give patient instructions): Sciatica (ED) Additional Instructions: Please return to the Emergency Department if symptoms worsen or any other concerns. Prescriptions: Lidocaine 5% Patch [Lidoderm 5% Patch] 1 patch TOPICAL DAILY 7 Days #7 patch methocarbamoL [Robaxin] 500 mg PO TID PRN #15 tab PRN Reason: muscle spasms Is patient prescribed a controlled substance at d/c from ED?: No Referrals: Marcelo Chavez III, MD [Primary Care Provider] - 1-2 days Time of Disposition: 16:56
[2023-04-02 17:10] VITALS: BP 147/89; PULSE 84; RESP 16; TEMP 97.6
== END 2023-04-02 17:10 | disposition home or self-care (01) ==
LOC: EC 13:49 → SUPCPDRO 13:49 → EC 17:10
DX: M54.31 Sciatica, right side (principal); I10 Essential (primary) hypertension; E11.9 Type 2 diabetes mellitus without complications; M19.90 Unspecified osteoarthritis, unspecified site; F17.200 Nicotine dependence, unspecified, uncomplicated; Z79.899 Other long term (current) drug therapy; Z88.8 Allergy status to other drugs, medicaments and biological substances
CPT/HCPCS: 99283; 96372; J1885

== ENCOUNTER 2023-04-04 11:07 | Emergency (ER) | payer MEDICARE ==
[2023-04-04] MEDS ORDERED: HYDROmorphone 0.5 MG/0.5 ML SYRINGE IVP STA (11:59)
--- NOTE | 2023-04-04 12:07 | ED ---
General Adult HPI - General Chief complaint: Back Pain/Injury Stated complaint: Back Pain - was here 2 days ago Time Seen by Provider: 04/04/23 11:23 Source: patient, RN notes reviewed Mode of arrival: ambulatory Limitations: no limitations - History of Present Illness Initial comments: 77-year-old male presents emergency department chief complaint of low back and buttock pain. Patient states that he has a long-standing history of sciatica pain which has been worse in the past week. He reports pain in his right buttock, lateral thigh, down to his lateral foot. He states that his been taking Vicodin and was prescribed a muscle relaxer 2 days ago which he states he didn't like the way it made him feel. He reports mild relief with the Vicodin. He has not had any prior imaging done. Denies loss of bowel or bladder function, urinary retention, saddle anesthesia, fever, chills. Past medical history significant for type 2 diabetes, heart block status post pacemaker. - Related Data Home Medications Medication Instructions Recorded Confirmed Pioglitazone HCl [Actos] 15 mg PO DAILY 05/23/16 06/22/22 allopurinoL [Zyloprim] 100 mg PO DAILY 05/23/16 06/22/22 Cetirizine HCl [Zyrtec] 10 mg PO DAILY 06/22/22 06/22/22 Fluticasone Nasal [place] [Flonase 1 - 2 spr EA NOSTRIL BID PRN 06/22/22 06/22/22 Nasal [place]] metFORMIN HCL ER [Glucophage XR] 1,000 mg PO BID 06/22/22 06/22/22 Previous Rx's Medication Instructions Recorded Aspirin 81 mg PO DAILY #30 tab 06/27/22 Atorvastatin [Lipitor] 40 mg PO DAILY #30 tab 06/27/22 Chlorthalidone [Hygroton] 25 mg PO DAILY #30 tab 06/27/22 carvediloL [Coreg*] 12.5 mg PO BID-W/MEALS #60 tab 06/27/22 lisinopriL [Zestril] 40 mg PO DAILY #60 tab 06/27/22 Lidocaine 5% Patch [Lidoderm 5% 1 patch TOPICAL DAILY 7 Days #7 04/02/23 Patch] patch methocarbamoL [Robaxin] 500 mg PO TID PRN #15 tab 04/02/23 HYDROcodone/APAP 7.5-325MG [[place] 1 tab PO Q6HR PRN #12 tab 04/04/23 7.5-325] Allergies Allergy/AdvReac Type Severity Reaction Status Date / Time levofloxacin [From Levaquin] Allergy Dyspnea Verified 04/04/23 11:15 mefloquine HCl [From Lariam] Allergy NIGHTMARES Verified 04/04/23 11:15 ofloxacin [From Floxin] Allergy JOINT PAIN Verified 04/04/23 11:15 [place] Allergy Dyspnea,STR Uncoded 04/04/23 11:15 IDOR Review of Systems ROS Statement: Those systems with pertinent positive or pertinent negative responses have been documented in the HPI. ROS Other: All systems not noted in ROS Statement are negative. Past Medical History Past Medical History: Cancer, CVA/TIA, Diabetes Mellitus, Hypertension, Osteoarthritis (OA), Prostate Disorder Additional Past Medical History / Comment(s): PROSTATE CANCER, KIDNEY STONE History of Any Multi-Drug Resistant Organisms: None Reported Past Surgical History: Adenoidectomy, Orthopedic Surgery, Tonsillectomy Additional Past Surgical History / Comment(s): PROSTATE SURGERY, LEFT KNEE ARTHROSCOPIC Past Anesthesia/Blood Transfusion Reactions: No Reported Reaction Past Psychological History: No Psychological Hx Reported Smoking Status: Current every day smoker, Current some day smoker Past Alcohol Use History: Occasional Past Drug Use History: None Reported - Past Family History Mother Family Medical History: No Reported History General Exam Limitations: no limitations General appearance: alert, in no apparent distress Head exam: Present: atraumatic, normocephalic, normal inspection Eye exam: Present: normal appearance, PERRL, EOMI. Absent: scleral icterus, conjunctival injection, periorbital swelling ENT exam: Present: normal exam, mucous membranes moist Neck exam: Present: normal inspection. Absent: tenderness, meningismus, lymphad enopathy Respiratory exam: Present: normal lung sounds bilaterally. Absent: respiratory distress, wheezes, rales, rhonchi, stridor Cardiovascular Exam: Present: regular rate, normal rhythm, normal heart sounds. Absent: systolic murmur, diastolic murmur, rubs, gallop, clicks GI/Abdominal exam: Present: soft, normal bowel sounds. Absent: distended, tenderness, guarding, rebound, rigid Extremities exam: Present: normal inspection, full ROM, normal capillary refill, other (DP and PT pulses 2+, NVI, right gluteal tenderness). Absent: tenderness, pedal edema, joint swelling, calf tenderness Back exam: Present: normal inspection Neurological exam: Present: alert, oriented X3, CN II-XII intact Psychiatric exam: Present: normal affect, normal mood Skin exam: Present: warm, dry, intact, normal color. Absent: rash Course Vital Signs 04/04/23 04/04/23 04/04/23 11:13 13:15 14:06 Temperature 97.9 F 98 F 97.9 F Pulse Rate 64 64 67 Respiratory 18 16 16 Rate Blood Pressure 166/78 161/77 158/69 O2 Sat by Pulse 97 97 97 Oximetry Medical Decision Making - Medical Decision Making Was pt. sent in by a medical professional or institution (, PA, BELL PERSON, urgent care, hospital, or custodial...) When possible be specific @ -No Did you speak to anyone other than the patient for history (EMS, parent, family, police, friend...)? What history was obtained from this source @ -No Did you review nursing and triage notes (agree or disagree)? Why? @ -I reviewed and agree with nursing and triage notes Were old charts reviewed (outside hosp., previous admission, EMS record, old EKG, old radiological studies, urgent care reports/EKG's, custodial records)? Report findings @ -Prior visit from [facility]. Differential Diagnosis (chest pain, altered mental status, abdominal pain women, abdominal pain men, vaginal bleeding, weakness, fever, dyspnea, syncope, headache, dizziness, GI bleed, back pain, seizure, CVA, palpatations, mental health, musculoskeletal)? @ -Differential Back Pain: Strain, zoster, cauda equina syndrome, epidural abscess, vertebral osteomyelitis, discitis, fracture, subluxation, disc herniation, DJD, spinal stenosis, dissection, AAA, pancreatitis, peptic ulcer disease, pyelonephritis, kidney stone, this is not meant to be an all-inclusive list. EKG interpreted by me (3pts min.). @ -none X-rays interpreted by me (1pt min.). @ -None done CT interpreted by me (1pt min.). @ -CT lumbar spine showed degenerative disc disease greatest at L4-L5 with right paracentral disc herniation. resultant jzpi-rp-zswckmze central stenosis and right foraminal encroachment U/S interpreted by me (1pt. min.). @ -None done What testing was considered but not performed or refused? (CT, X-rays, U/S, labs)? Why? @ -None What meds were considered but not given or refused? Why? @ -None Did you discuss the management of the patient with other professionals (professionals i.e. DrMaria Elena, PA, BELL PERSON, lab, RT, psych nurse, social media editor, tassel clipper, teacher, railway patrol officer, piano case maker)? Give summary @ -No Was smoking cessation discussed for >3mins.? @ -No Was critical care preformed (if so, how long)? @ -No Were there social determinants of health that impacted care today? How? (Homelessness, low income, unemployed, alcoholism, drug addiction, transportation, low edu. Level, literacy, decrease access to med. care, senior living, r ehab)? @ -No Was there de-escalation of care discussed even if they declined (Discuss DNR or withdrawal of care, Hospice)? DNR status @ -No What co-morbidities impacted this encounter? (DM, HTN, Smoking, COPD, CAD, Cancer, CVA, ARF, Chemo, Hep., AIDS, mental health diagnosis, sleep apnea, morbid obesity)? @ -None Was patient admitted / discharged? Hospital course, mention meds given and route, prescriptions, significant lab abnormalities, going to OR and other pertinent info. @ -Discharged. Patient presented to the emergency department for chief complaint of low back pain radiating to right buttock and leg. Patient has a history of sciatica and states that it has been worsening over the past week. Denies urinary retention, loss of bowel or bladder function, saddle anesthesia, fever. States he has an appointment on Saturday with orthopedics and was requesti ng an MRI. Discussed that we are unable to do an MRI in the ED. Patient has not had recent back imaging. CT lumbar spine showed DDD with right paracentral disc herniation at L4-L5. Called MRI to attempt to get patient MRI today but they do not have any availability. Patient was given 0.5 mg of Dilaudid here in the ER and reported significant improvement in his pain. Patient given 3 day prescript ion for norco 7.5mg. Recommended scheduled follow up with [facility]. Patient discharged in stable condition. Case discussed with my attending, Dr. Dunn. Undiagnosed new problem with uncertain prognosis? @ -No Drug Therapy requiring intensive monitoring for toxicity (Heparin, Nitro, Insulin, Cardizem)? @ -No Were any procedures done? @ -No Diagnosis/symptom? @ -Herniated disc Acute, or Chronic, or Acute on Chronic? @ -chronic Uncomplicated (without systemic symptoms) or Complicated (systemic symptoms)? @ -Uncomplicated Side effects of treatment? @ -No Exacerbation, Progression, or Severe Exacerbation? @ -No Poses a threat to life or bodily function? How? (Chest pain, [place], [place], pneumonia, PE, COPD, DKA, ARF, appy, cholecystitis, CVA, Diverticulitis, Homicidal, Suicidal, threat to staff... and all critical care pts) @ -No Disposition Clinical Impression: Lumbar disc herniation Disposition: HOME SELF-CARE Condition: Stable Instructions (If sedation given, give patient instructions): Acute Low Back Pain (ED) Prescriptions: HYDROcodone/APAP 7.5-325MG [[place] 7.5-325] 1 tab PO Q6HR PRN #12 tab PRN Reason: Pain Is patient prescribed a controlled substance at d/c from ED?: Yes When asked, does pt state using other controlled substances?: No If prescribed controlled substance>3 days was MAPS reviewed?: Prescribed <3 Days If opioid is for acute pain is fill amount 7 days or less?: No If Rx opioid, was Start Talking consent form obtained?: No Referrals: Marcelo Chavez III, MD [Primary Care Provider] - 1-2 days Time of Disposition: 13:42
--- NOTE | 2023-04-04 12:56 | CT ---
EXAMINATION TYPE: CT lumbar spine wo con DATE OF EXAM: 04/04/2023 12:43 PM COMPARISON: None HISTORY: RT sciatic pain, lumbar pain CT DLP: 948 mGycm Automated exposure control for dose reduction was used. Unenhanced CT of the lumbar spine was performed. Bone and soft tissue window settings are submitted as well as coronal and sagittal reconstructions. L1-L2: Normal disc space height. No disc herniation protrusion or central stenosis. No facet joint arthropathy. No evidence for foraminal encroachment. L2-L3: Normal disc space height. No disc herniation protrusion or central stenosis. No facet joint arthropathy. No evidence for foraminal encroachment. L3-L4: Normal disc space height. No disc herniation protrusion or central stenosis. No facet joint arthropathy. No evidence for foraminal encroachment. L4-L5: Vacuum disc noted. Posterior disc bulge. Far lateral into the right disc herniation suspected. Hypertrophy of ligamentum flavum and facet joint arthropathy resulting in zadp-[id number] central s tenosis. Moderate right-sided foraminal encroachment with mild left-sided encroachment seen. L5-S1: Mild degenerative disc space narrowing with posterior disc bulge. Mild effacement ventral thec al sac. No evidence for central stenosis or lateral recess stenosis. Mild bilateral foraminal encroac hment. No evidence for fracture or malalignment. IMPRESSION: 1. Degenerative disc disease greatest at L4-5 where there appears to be right paracentral disc hernia tion. There is resultant xzhw-hd-qasqddbl central stenosis and right foraminal encroachment.
[2023-04-04 13:36] VITALS: RESP 16
[2023-04-04 14:07] VITALS: BP 158/69; PULSE 67; TEMP 97.9
== END 2023-04-04 14:07 | disposition home or self-care (01) ==
LOC: EC 11:07
DX: M51.26 Other intervertebral disc displacement, lumbar region (principal); E11.9 Type 2 diabetes mellitus without complications; I10 Essential (primary) hypertension; M19.90 Unspecified osteoarthritis, unspecified site; Z86.73 Personal history of transient ischemic attack (TIA), and cerebral infarction without residual deficits; F17.200 Nicotine dependence, unspecified, uncomplicated; Z88.8 Allergy status to other drugs, medicaments and biological substances; Z79.51 Long term (current) use of inhaled steroids; Z79.84 Long term (current) use of oral hypoglycemic drugs; Z79.899 Other long term (current) drug therapy
CPT/HCPCS: 72131; 99284; 96374; J1170

== ENCOUNTER 2023-04-15 11:08 | Emergency (ER) | payer MEDICARE ==
[2023-04-15] MEDS ORDERED: HYDROmorphone 1 MG/ML 1 ML SYRINGE IM STA (12:59)
--- NOTE | 2023-04-15 13:08 | ED ---
General Adult HPI - General Chief complaint: Back Pain/Injury Stated complaint: R leg pain Time Seen by Provider: 04/15/23 12:28 Source: patient Mode of arrival: ambulatory Limitations: no limitations - History of Present Illness Initial comments: Dictation was produced using [employer] dictation software. please excuse any grammatical, word or spelling errors. Chief Complaint: 77-year-old male with acute on chronic back pain History of Present Illness: 77-year-old male presents to the ER with back pain. He ran out of his analgesic medications. He already has seen back specialists and is scheduled to have spinal injections to alleviate his symptoms. Patient states that his pain feels like his usual pain slightly worse since ran out of his pain medications. Patient has no other complaints at this time. The ROS documented in this emergency department record has been reviewed and confirmed by me. Those systems with pertinent positive or negative responses have been documented in the HPI. All other systems are other negative and/or noncontributory. - Related Data Home Medications Medication Instructions Recorded Confirmed Pioglitazone HCl [Actos] 15 mg PO DAILY 05/23/16 06/22/22 allopurinoL [Zyloprim] 100 mg PO DAILY 05/23/16 06/22/22 Cetirizine HCl [Zyrtec] 10 mg PO DAILY 06/22/22 06/22/22 Fluticasone Nasal [place] [Flonase 1 - 2 spr EA NOSTRIL BID PRN 06/22/22 06/22/22 Nasal [place]] metFORMIN HCL ER [Glucophage XR] 1,000 mg PO BID 06/22/22 06/22/22 Previous Rx's Medication Instructions Recorded Aspirin 81 mg PO DAILY #30 tab 06/27/22 Atorvastatin [Lipitor] 40 mg PO DAILY #30 tab 06/27/22 Chlorthalidone [Hygroton] 25 mg PO DAILY #30 tab 06/27/22 carvediloL [Coreg*] 12.5 mg PO BID-W/MEALS #60 tab 06/27/22 lisinopriL [Zestril] 40 mg PO DAILY #60 tab 06/27/22 Lidocaine 5% Patch [Lidoderm 5% 1 patch TOPICAL DAILY 7 Days #7 04/02/23 Patch] patch methocarbamoL [Robaxin] 500 mg PO TID PRN #15 tab 04/02/23 HYDROcodone/APAP 7.5-325MG [[place] 1 tab PO Q6HR PRN #12 tab 04/04/23 7.5-325] HYDROcodone/APAP 5-325MG [[place] 1 tab PO Q6HR PRN 3 Days #12 tab 04/15/23 5-325] Allergies Allergy/AdvReac Type Severity Reaction Status Date / Time levofloxacin [From Levaquin] Allergy Dyspnea Verified 04/15/23 11:33 mefloquine HCl [From Lariam] Allergy NIGHTMARES Verified 04/15/23 11:33 ofloxacin [From Floxin] Allergy JOINT PAIN Verified 04/15/23 11:33 [place] PEPPERS Allergy Dyspnea,STR Uncoded 04/15/23 11:33 IDOR Review of Systems ROS Statement: Those systems with pertinent positive or pertinent negative responses have been documented in the HPI. ROS Other: All systems not noted in ROS Statement are negative. Past Medical History Past Medical History: Cancer, CVA/TIA, Diabetes Mellitus, Hypertension, Osteoarthritis (OA), Prostate Disorder Additional Past Medical History / Comment(s): PROSTATE CANCER, KIDNEY STONE History of Any Multi-Drug Resistant Organisms: None Reported Past Surgical History: Adenoidectomy, Orthopedic Surgery, Tonsillectomy Additional Past Surgical History / Comment(s): PROSTATE SURGERY, LEFT KNEE ARTHROSCOPIC Past Anesthesia/Blood Transfusion Reactions: No Reported Reaction Past Psychological History: No Psychological Hx Reported Smoking Status: Current every day smoker, Current some day smoker Past Alcohol Use History: Occasional Past Drug Use History: None Reported - Past Family History Mother Family Medical History: No Reported History General Exam - General Exam Comments Initial Comments: PHYSICAL EXAM: General Impression: Alert and oriented x3, not in acute distress HEENT: Normocephalic atraumatic, extra-ocular movements intact, pupils equal and reactive to light bilaterally, mucous membranes moist. Cardiovascular: Heart regular rate and rhythm Chest: Able to complete full sentences, no retractions, no tachypnea Abdomen: abdomen soft, non-tender, non-distended, no organomegaly Musculoskeletal: Pulses present and equal in all extremities, no peripheral edema Motor: no focal deficits noted Neurological: CN II-XII grossly intact, no focal motor or sensory deficits noted Skin: Intact with no visualized rashes Psych: Normal affect and mood Limitations: no limitations Course Vital Signs 04/15/23 11:34 Temperature 98.1 F Pulse Rate 79 Respiratory 18 Rate Blood Pressure 168/78 O2 Sat by Pulse 96 Oximetry Medical Decision Making - Medical Decision Making Was pt. sent in by a medical professional or institution (GLORIA Gatica, MENU PLANNER, urgent care, hospital, or longterm...) When possible be specific @ -[No] Did you speak to anyone other than the patient for history (EMS, parent, family, police, friend...)? What history was obtained from this source @ -[No] Did you review nursing and triage notes (agree or disagree)? Why? @ -[I reviewed and agree with nursing and triage notes] Were old charts reviewed (outside hosp., previous admission, EMS record, old EKG, old radiological studies, urgent care reports/EKG's, longterm records)? Report findings @ -[No old charts were reviewed] Differential Diagnosis (chest pain, altered mental status, abdominal pain women, abdominal pain men, vaginal bleeding, musculoskeletal, weakness, fever, dyspnea, syncope, headache, dizziness, GI bleed, back pain, seizure, CVA, palpatations, mental health)? @ -Differential Back Pain: Strain, zoster, cauda equina syndrome, epidural abscess, vertebral osteomyelitis, discitis, fracture, subluxation, disc herniation, DJD, spinal stenosis, dissection, AAA, pancreatitis, peptic ulcer disease, pyelonephritis, kidney stone, this is not meant to be an all-inclusive list. EKG interpreted by me (3pts min.). @ -[None done] X-rays interpreted by me (1pt min.). @ -[None done] CT interpreted by me (1pt min.). @ -[None done] U/S interpreted by me (1pt. min.). @ -[None done] What testing was considered but not performed or refused? (CT, X-rays, U/S, labs)? Why? @ -[None] What meds were considered but not given or refused? Why? @ -[None] Did you discuss the management of the patient with other professionals (professionals i.e. GLORIA Gatica, MENU PLANNER, lab, RT, psych nurse, child welfare social worker, program director/traffic director, teacher, radiation officer, case management manager)? Give summary @ -[No] Was smoking cessation discussed for >3mins.? @ -[No] Was critical care preformed (if so, how long)? @ -[No] Were there social determinants of health that impacted care today? How? (Homelessness, low income, unemployed, alcoholism, drug addiction, transportation, low edu. Level, literacy, decrease access to med. care, senior living, rehab)? @ -[No] Was there de-escalation of care discussed even if they declined (Discuss DNR or withdrawal of care, Hospice)? DNR status @ -[No] What co-morbidities impacted this encounter? (DM, HTN, Smoking, COPD, CAD, Cancer, CVA, ARF, Chemo, Hep., AIDS, mental health diagnosis, sleep apnea, morbid obesity)? @ -[None] Was patient admitted / discharged? Hospital course, mention meds given and route, prescriptions, significant lab abnormalities, going to OR and other pertinent info. @ -77-year-old male presents emergency department for acute on chronic back pain. Vital signs stable. Patient states he ran out of his pain medications. Patient given IM analgesia. Given 3 day course of analgesics. He does have an appointment with applied behavior science specialist later this week. Undiagnosed new problem with uncertain prognosis? @ -[No] Drug Therapy requiring intensive monitoring for toxicity (Heparin, Nitro, Insulin, Cardizem)? @ -[No] Were any procedures done? @ -[No] Diagnosis/symptom? Acute, or Chronic, or Acute on Chronic? Uncomplicated (without systemic symptoms) or Complicated (systemic symptoms)? @ -1. Acute on chronic back pain Side effects of treatment? @ -[No] Exacerbation, Progression, or Severe Exacerbation? @ -[No] Poses a threat to life or bodily function? How? (Chest pain, [place], [place], pneumonia, PE, COPD, DKA, ARF, appy, cholecystitis, CVA, Diverticulitis, Homicidal, Suicidal, threat to staff... and all critical care pts) @ -[No] Disposition Clinical Impression: Mechanical back pain Disposition: HOME SELF-CARE Condition: Good Instructions (If sedation given, give patient instructions): Chronic Back Pain (DC) Prescriptions: HYDROcodone/APAP 5-325MG [[place] 5-325] 1 tab PO Q6HR PRN 3 Days #12 tab PRN Reason: Severe Pain Is patient prescribed a controlled substance at d/c from ED?: Yes If prescribed controlled substance>3 days was MAPS reviewed?: Prescribed <3 Days Referrals: Candace Nava DO [Doctor of Osteopathic Medicine] - 1-2 days Time of Disposition: 13:08
[2023-04-15 13:52] VITALS: BP 169/81; PULSE 71; RESP 16; TEMP 98.6
== END 2023-04-15 13:52 | disposition home or self-care (01) ==
LOC: EC 11:08
DX: M54.9 Dorsalgia, unspecified (principal); E11.9 Type 2 diabetes mellitus without complications; I10 Essential (primary) hypertension; M19.90 Unspecified osteoarthritis, unspecified site; Z86.73 Personal history of transient ischemic attack (TIA), and cerebral infarction without residual deficits; F17.200 Nicotine dependence, unspecified, uncomplicated; Z88.1 Allergy status to other antibiotic agents; Z88.8 Allergy status to other drugs, medicaments and biological substances; Z79.84 Long term (current) use of oral hypoglycemic drugs; Z79.899 Other long term (current) drug therapy
CPT/HCPCS: 99283; 96372; J1170

== ENCOUNTER → 2023-04-29 | Outpatient (CLI) | payer MEDICARE ==
--- NOTE | 2023-04-29 14:47 | CT ---
EXAMINATION TYPE: CT lumbar spine wo con DATE OF EXAM: 04/29/2023 2:07 PM COMPARISON: 04/29/2023 HISTORY: lumbar back pain CT DLP: 581 mGycm Automated exposure control for dose reduction was used. Unenhanced CT of the lumbar spine was performed. Bone and soft tissue window settings are submitted as well as coronal and sagittal reconstructions. L1-L2: Normal disc space height. No disc herniation protrusion or central stenosis. No facet joint arthropathy. No evidence for foraminal encroachment. L2-L3: Normal disc space height. No disc herniation protrusion or central stenosis. No facet joint arthropathy. No evidence for foraminal encroachment. L3-L4: Normal disc space height. No disc herniation protrusion or central stenosis. No facet joint arthropathy. No evidence for foraminal encroachment. L4-L5: There is moderate to severe degenerative disc space narrowing with vacuum disc noted.Broad-bas ed Posterior disc bulge. Far lateral and the right disc herniation suspected. Hypertrophy of ligament um flavum and facet joint arthropathy resulting in zdrv-ls-zverhnth central stenosis. Moderate right- sided foraminal encroachment with mild left-sided encroachment seen. L5-S1: Mild degenerative disc space narrowing with posterior disc bulge. Mild effacement ventral thec al sac. No evidence for central stenosis or lateral recess stenosis. Mild bilateral foraminal encroac hment. No paraspinal masses are identified. Lumbar segments are intact. Curvature are noted convex to the l eft. IMPRESSION: 1. Overall stable examination with far lateral and to the right disc herniation at L4-5. Hypertrophy of ligamentum flavum and facet joint arthropathy resulting in jjpa-wa-zvumcvhl central stenosis.
== END | disposition home or self-care (01) ==
LOC: RADCTMAIN 13:54
PROVIDERS: ATTEND Orthopaedic Surgery Orthopaedic Surgery of the Spine
DX: M47.817 Spondylosis without myelopathy or radiculopathy, lumbosacral region (principal); M51.16 Intervertebral disc disorders with radiculopathy, lumbar region; M43.16 Spondylolisthesis, lumbar region; M47.26 Other spondylosis with radiculopathy, lumbar region; R26.9 Unspecified abnormalities of gait and mobility; M16.11 Unilateral primary osteoarthritis, right hip
CPT/HCPCS: 72131

== ENCOUNTER 2023-07-17 08:36 | Observation (INO) | payer MEDICARE ==
[~2023-07-17 08:36] MED LIST changes: +DEXAMETHASONE SOD PHOSPHATE 4 MG/ML 1 ML VIAL IV ONE; +HYDROmorphone 0.5 MG/0.5 ML SYRINGE IVP PRN; +ONDANSETRON 4 MG/2 ML VIAL IVP ONE; -Pre Op ABX Message 1 EACH MISC MISCELLANE ONE; -TETRACAINE 0.5% OPHTH (PF) DROPS 4 ML BTL OP ONE; +ceFAZolin 1,000 MG in SODIUM CHLORIDE 0.9% IRRIGATIO 1,000 ML IRRIGATION PRN
[2023-07-17] MEDS: LACTATED RINGERS 1,000 ML IV SCH ×3 (09:38→16:11)
[2023-07-17] MEDS ORDERED: INSULIN ASPART (NovoLOG) 100 UNIT/ML VIAL SQ ONE (09:47)
[2023-07-17 09:52] LABS: Glucose,Whole Blood 206 mg/dL (70-110)
[2023-07-17] MEDS ORDERED: LIDOCAINE 1% INJ 10MG/ML (20 ML MDV) ONE (10:16)
[2023-07-17] MEDS ORDERED: GLYCOPYRROLATE 0.2 MG/ML 2 ML VIAL ONE (10:16)
[2023-07-17] MEDS ORDERED: PHENYLEPHRINE-0.9% NACL SYG 1,000 MCG/10 ML SYRINGE ONE (10:16)
[2023-07-17] MEDS ORDERED: SUCCINYLCHOLINE CHLORIDE 200 MG/10 ML VIAL IV ONE (10:16)
[2023-07-17] MEDS ORDERED: NEOSTIGMINE 1 MG/ML 10 ML VIAL ONE (10:16)
[2023-07-17] MEDS ORDERED: PROPOFOL 10 MG/ML 20 ML VIAL IV ONE (10:16)
[2023-07-17] MEDS ORDERED: MIDAZOLAM 2 MG/2 ML VIAL ONE (10:16)
[2023-07-17] MEDS ORDERED: fentaNYL (PF) 50 MCG/ML 2 ML AMP ONE (10:16)
[2023-07-17] MEDS ORDERED: ROCURONIUM 10 MG/ML (5 ML VIAL) IV ONE (10:16)
[2023-07-17] MEDS ORDERED: THROMBIN (BOVINE) 5,000 UNIT VIAL TOPICAL ONE (10:21)
[2023-07-17] MEDS ORDERED: GELATIN SPONGE,ABSORB (LARGE) 1 EACH SPONGE TOPICAL ONE (10:21)
[2023-07-17] MEDS ORDERED: LIDOCAINE 0.5%-EPI 1:200,000 50 ML VIAL SQ ONE (10:21)
[2023-07-17] MEDS ORDERED: LACTATED RINGERS 1,000 ML IV ONE (11:29)
--- NOTE | 2023-07-17 13:01 | FL ---
Intraoperative/procedural fluoroscopic services were provided. Total fluoroscopy time is 20 seconds w ith a total of 6 submitted images to PACS. Please see the operative/procedural note for further detai ls. DAP: 1715.92 mGym2
[2023-07-17] MEDS ORDERED: BENZOCAINE/MENTHOL LOZENG 1 EACH LOZENGE MUCOUS MEM PRN (13:25)
[2023-07-17] MEDS ORDERED: HYDROmorphone 0.5 MG/0.5 ML SYRINGE IVP PRN (13:25)
[2023-07-17] MEDS ORDERED: HYDROmorphone 1 MG/ML 1 ML SYRINGE IVP PRN (13:25)
[2023-07-17] MEDS ORDERED: MAGNESIUM HYDROXIDE 2,400 MG/30 ML CUP PO PRN (13:26)
[2023-07-17] MEDS ORDERED: CYCLOBENZAPRINE 10 MG TAB PO PRN (13:26)
[2023-07-17] MEDS ORDERED: SENNOSIDES-DOCUSATE SODIUM 1 EACH TAB PO PRN (13:26)
[2023-07-17] MEDS ORDERED: ONDANSETRON 4 MG/2 ML VIAL IVP PRN (13:26)
[2023-07-17] MEDS ORDERED: FLUTICASONE 50MCG/SPRAY NASAL 16GM EA NOSTRIL PRN (13:29)
--- NOTE | 2023-07-17 13:41 | P.OP ---
Date of Procedure: 07/17/23 Preoperative Diagnosis: Spondylolisthesis L4 5, severe spinal stenosis L4 5, lower extremity radiculopathy, neurogenic claudication, lower extremity weakness, general disc disease, facet arthrosis, low back pain Postoperative Diagnosis: Same Anesthesia: GETA Pathology: none sent Condition: stable Disposition: PACU Description of Procedure: DESCRIPTION OF PROCEDURE(S): BRIEF OPERATIVE NOTE Preoperative Diagnosis: Spondylolisthesis L4 5, severe spinal stenosis L4 5, lower extremity radiculopathy, neurogenic claudication, lower extremity weaknes s, general disc disease, facet arthrosis, low back pain Postoperative Diagnosis: Same Procedure: Laminectomy and decompression L4 5 with bilateral decompression beyond preparation for his fusion Computer CT navigation aided Minimally invasive Posterior lateral decompression and facet fusion L4 5 Minimally invasive Transforaminal lumbar interbody fusion for a 360 fusion L4 5 Discectomy for decompression L4 5 Placement of interbody graft L4 5 Use of computer navigation for fusion Local autogenous bone grafting Aspiration of bone marrow from the vertebral body pedicle L4 on the right Use of bone graft extenders Surgeon: Dr. aNva Research Compliance Specialist: Armando CASTRO who is present throughout the entire the case persistence during positioning, dissection, exposure, visualization, and all crucial elements of the case as well as closure. Anesthesia: General anesthesia Estimated blood loss: Approximately 100 mL Complications: None apparent Components implanted: K2M minimally invasive Tekoa pedicle screw system withscrews measuring 6.5 mm in diameter to rods one expandable interbody cage with 10 mL of osteo amp bio4 bone graft substitute and 30 mL of the BX bone fibers to supplement the local autogenous bone graft and bone marrow aspirate Disposition: To recovery room in good stable condition. OPERATIVE INDICATIONS The patient has had severe issues at their lower extremity in her lower back over the past several years with significant worsening over the past several months. Over the past few months the patient had pain at their back and their lower extremities. The patient is having severe radicular symptoms at their lower extremity with weakness. The patient is having significant pain in their back. They are unable to obtain any comfort. We did aggressive conservative treatment with medications therapy and interventional pain management however thery were not having any relief. The patient also showed evidence of a listhesis with some dynamic instability at L4 5 which correlated well with his low back pain. The patient has been through conservative treatment. He is having essentially incapacitating pain due to his back and lower extremities. We discussed various treatment options including surgery, and the patient wishes to proceed with surgery We discussed the risk, patient's alternatives and benefits of surgery including but not limited to, risk of bleeding risk of infection, risk of need for further surgery, risk of decreased, loss of motion, muscle function, malunion nonunion, hardware failure, nerve damage, paralysis, heart attack, blindness and . They understood issues with the current pandemic and the possibility of exposure. OPERATIVE SUMMARY After discussing all the risks, patient alternatives and benefits at length, the patient elected to proceed with surgical intervention, signed informed consent, and presented for their procedure. The patient was seen and examined in the preoperative holding area and the surgical site was marked. The patient was given antibiotics and brought to the operating room. The patient was sedated and intubated by anesthesia in standard fashion. The patient was positioned on to the operating room table in a prone position on the appropriate frame which was well-padded and well molded. We were careful to pad any bony prominences and pressure points. We were careful to maintain the patient's cervical spine and good neutral alignment and position throughout. The patient was prepped and draped in a normal standard fashion. An appropriate timeout and keystone protocol performed. We were able to proceed with the surgery. The local wound area was infiltrated with local anesthetic. Over the right iliac crest I was able to make small stab incisions and establish a guidepin screw fixation to the iliac crest 2. I was able place the computer referencing device over the guidepins to establish an appropriate reference point for the Ziem CT navigation. We then were able to place patient in an appropriate drape and do a navigation spin for visualization and 3-D reconstruction of the lumbar spine. I was able utilize C-arm guidance and navigation to establish appropriate position over the pedicles bilaterally at the appropriate levels at L4 5 . With the appropriate levels confirmed was able to make small incisions over the appropriate pedicle sites bilaterally. Utilizing the computer navigation device I was able to establish bony landmarks at the right iliac crest for a bony reference point for the navigation device. I was able to establish a Jamshidi needle over the lateral aspect of the pedicle and advanced the trocar into the pedicle being careful not to breech superiorly inferiorly medially or laterally using computer navigation device. Position was confirmed regularly with AP and lateral images on C-arm and with the computer navigation device at the appropriate levels bilaterally. I was able to establish the trocar into the pedicle appropriately into the posterior aspect of the vertebral body bilaterally at the appropriate levels of L4 5. This was done at each of the pedicle positions and each of the vertebrae. At the superior vertebrae on the right at L4 I was able to take approximately 25 mL of bone aspiration for use later in the case to supplement the allograft and autograft bone. I was able place the guidewire into the trocar and into the vertebral body appropriately under C-arm guidance. Dissection was taken down over the wire to the appropriate starting position for the screw placed. The appropriate length screw was chosen, threaded over the guidewire and screwed appropriately into the pedicle and vertebral body under C-arm guidance in excellent alignment and position with good bony purchase. This is done at each of the screw sites at the appropriate levels at L and 4 and L5 bilaterally. With the screws intact I extended the incision to connect the screw hole sites on the most symptomatic side on the right. I dissected down to establish access over the pars and lamina to the base of the spinous process. I was able to expose the facet joint. The capsule the facet was taken down and showed some severe facet arthrosis at the joint and significant osteophytic spurring. I was able to use a combination of curettes and Kerrison rongeurs and a high-speed drill to take down the facet joint and do a facetectomy. I was able get excellent foraminal decompression and central decompression with undermining across midline to perform a laminectomy centrally and contralaterally. As able get good central decompression. The ligamentum flavum was taken down to further decompress centrally and at bilateral neural foramen. There was severe stenosis centrally and I performed bilateral decompression beyond the scope of laminectomy for preparation for fusion. I was able to expose the disc space and visualize the traversing nerve root. Note was made of some disc protrusion and disc herniation that was abutting the traversing nerve root at the level causing further compression of the nerve root. I was able to establish a annulotomy at the appropriate level protecting soft tissue and neural structures. Note was made of some severe disc desiccation at the disc and loss of disc material. I performed a complete discectomy with accommodation of curettes and rasps and scrapers. I was able get good endplate preparation at the disc space. I sized for the appropriate size interbody spacer protecting the soft tissue and neural structures. The wound was copiously irrigated and suctioned dry. There is no evidence of any dural tear or leak. I was able to pack the disc space with local autogenous bone graft as well as a small amount of bone graft which was also placed into the interbody cage itself. Protecting the soft tissue structures and neural structures I was able place the interbody cage in good alignment and good position and then expanded the cage under C-arm guidance with good fit and fill at the interbody space. I was able to further backfill the cage with bone graft as well Position was confirmed with C-arm guidance. Good hemostasis maintained. There is no evidence of any dural tear or leak. The wound was irrigated and suctioned dry. With the hardware intact, intraoperative C-arm imaging was again taken which showed good alignment and position of the hardware at the appropriate levels at L4 5. We were then able to measure, contour and place the rods and appropriate hardware bilaterally. I was able to place capcrews, tighten them down, and torque them with the torque screwdriver appropriately. With this intact I was able to place the local autogenous bone graft with additional bone graft enhancer as necessary into the posterior lateral gutters over the decorticated transverse processes and facet joints on the contralateral side. The remainder of the bone graft was placed over the facet joint on the contralateral side after taking down the facet joint capsule. With the bone graft intact, a stable construct, and good decompression at the appropriate levels, we were able to proceed with closure. Good hemostasis was maintained. There is no evidence of dural tear or leak. The fascia was closed for a watertight closure. he subcuticular tissue was closed with absorbable suture. The wound was cleaned and dried and dressed with the appropriate dressing. The drapes were broken down. The patient was gently rolled back onto their hospital bed being careful to maintain their cervical spine and good neutral alignment and position. They were woken up by anesthesia, extubated, and brought to the recovery room in good stable condition. The patient will be admitted to the hospital for appropriate postoperative care, medical management and monitoring. We will continue to follow them closely about the postoperative course.
[2023-07-17] MEDS ORDERED: HYDROmorphone 0.5 MG/0.5 ML SYRINGE IVP ONE ×2 (13:55→14:11)
[2023-07-17 14:25] LABS: Glucose,Whole Blood 163 mg/dL (70-110)
[2023-07-17] MEDS: HYDROcodone/APAP 7.5-325MG 1 EACH TAB PO PRN ×2 (16:07→22:24)
[2023-07-17] MEDS: SODIUM CHLORIDE 0.9% 1,000 ML IV SCH (16:10)
[2023-07-17] MEDS: carvediloL 12.5 MG TAB PO SCH (18:25)
[2023-07-17] MEDS: metFORMIN 500 MG TAB PO SCH (22:17)
[2023-07-18] MEDS: SODIUM CHLORIDE 0.9% 1,000 ML IV SCH (03:57)
[2023-07-18] MEDS: carvediloL 12.5 MG TAB PO SCH ×2 (06:12→17:46)
[2023-07-18] MEDS: HYDROcodone/APAP 7.5-325MG 1 EACH TAB PO PRN (06:12)
[2023-07-18] MEDS: CHLORTHALIDONE 25 MG TAB PO SCH (08:41)
[2023-07-18] MEDS: allopurinoL 100 MG TAB PO SCH (08:41)
[2023-07-18] MEDS: APIXABAN 5 MG TAB PO SCH ×2 (08:41→20:27)
[2023-07-18] MEDS: metFORMIN 500 MG TAB PO SCH ×2 (08:41→20:27)
[2023-07-18] MEDS: ATORVASTATIN 40 MG TAB PO SCH (08:41)
[2023-07-18] MEDS: lisinopriL 20 MG TAB PO SCH (08:41)
[2023-07-18] MEDS: SENNOSIDES-DOCUSATE SODIUM 1 EACH TAB PO SCH (08:41)
[2023-07-18] MEDS ORDERED: PIOGLITAZONE 30 MG TAB PO SCH (09:00)
--- NOTE | 2023-07-18 09:20 | P.PN ---
Progress Note - Text Progress Note Date: 07/18/23 Postoperative day #1 Patient is seen and examined today at bedside. The patient has some pain around the surgical site as expected. Pain is being controlled with medication. He feels his legs are doing well. He has been up and has been able to void on his own with the Walker discontinued. He is tolerating his regular diet. Physical Exam Afebrile with stable vital signs Abdomen is soft nontender. Chest has good excursion deep and space expiration The incision site is clean dry and intact. No erythema there is no purulence. Dressings are completely dry with no drainage Extremities have not had neurologic change from prior to surgery. He has sustained a/5 flexion and EHL intact Calves and thighs were soft nontender without evidence of DVT. Assessment/Plan Postoperative day #1 status post minimally invasive decompression fusion L4 5 for his severe spinal stenosis with spondylolisthesis Patient is progressing as expected from the surgery. He is actually pleased with how well he is doing and says that he thought it would be much worse. He is up in a chair and comfortable with his oral medications. He is tolerating his regular diet. He has been able to void freely. We will continue to increase the patient's mobilization with therapy. We will continue pain control with oral or IV medications. The patient lives alone but has support with family and his growth friend available. It is possible that he may be able to be discharged home with home health versus the possibility of longterm after discharge. He will discuss these issues with case management and we will see how he does over the next day or 2. We'll continue to follow patient closely.
[2023-07-18 11:24] LABS: Basophils # (A) 0.03 X 10*3/uL (0.00-0.10); Basophils % (A) 0.4 %; Eosinophils # (A) 0.01 X 10*3/uL (0.04-0.35); Eosinophils % (A) 0.1 %; HCT 35.3 % (39.6-50.0); HGB 11.1 d/dL (13.0-17.0); Lymphocytes # (A) 0.89 X 10*3/uL (0.90-5.00); Lymphocytes % (A) 10.8 %; MCH 32.2 pg (27.0-32.0); MCHC 31.4 d/dL (32.0-37.0); MCV 102.3 FL (80.0-97.0); Mean Platelet Volume 11.7 FL (9.5-12.2); Monocytes # (A) 0.93 X 10*3/uL (0.20-1.00); Monocytes % (A) 11.3 %; NRBC Per 100 WBC 0 X 10*3/uL (0.00-0.01); Neutrophils # (A) 6.31 X 10*3/uL (1.80-7.70); Neutrophils % (A) 76.8 %; Platelet Count 196 X 10*3/uL (140-440); RBC 3.45 X 10*6/uL (4.40-5.60); RDW 12.8 % (11.5-14.5); WBC 8.22 X 10*3/uL (4.50-10.00)
[2023-07-18] MEDS ORDERED: DEXTROSE 50% SYRINGE 50 ML IVP PRN ×2 (11:28)
[2023-07-18] MEDS: LACTATED RINGERS 1,000 ML IV SCH (11:29)
--- NOTE | 2023-07-18 11:33 | P.CONS ---
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 fib anticoagulated with Eliquis, and multivessel coronary artery disease who presented for L4/5 minimally invasive decompression and fusion. Patient tolerated the procedure well without any immediate postoperative complications. Patient seen and examined at bedside. He is doing well but is having some back pain. He was able to work with therapy as the chair today. He was using a walker at home prior to admission. He reports that he has been doing well besides his back pain. His last A1c was 8.4 according to records sent by his PCP. He denies any recent cough, cold, fever, flu. She denies any postop nausea, vomiting, lightheadedness, shortness of breath, or chest pain. Vital signs reviewed General: nontoxic, no distress, appears at stated age Cardiovascular: S1S2 reg, no murmur, positive posterior tibial pulse bilateral, Lungs: Decreased bs bilateral, no rhonchi, no rales , no accessory muscle use Abdominal: soft, nontender to palpation, no guarding, no appreciable organomega ly Ext: no gross muscle atrophy, no edema b/l lower extremities, no contractures Neuro: CN II-XI grossly intact, no focal neuro deficits Psych: Alert, oriented, appropriate affect Assessment/Plan: 78-year-old male status post L4 5 decompression and fusion, minimally invasive secondary to severe spinal stenosis. 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 Preoperative blood work creatinine 1.26, sodium 138 potassium 4.1, hemoglobin 12.3, hematocrit 37.2, platelets 323 DVT prophylaxis: Mis Thank you for allowing us to participate in the care of this pleasant patient. Do not hesitate to contact us with questions. Someone can be reached from the [facility] hospitalist group all hours of the day at [phone] or via [employer]. This dictation was prepared using [employer] voice recognition software. Though every attempt is made to correct errors during dictation some may still exist. Past Medical History Past Medical History: Atrial Fibrillation, Coronary Artery Disease (CAD), Cancer, CVA/TIA, Diabetes Mellitus, Hyperlipidemia, Hypertension, Osteoarthritis (OA), Prostate Disorder Additional Past Medical History / Comment(s): PROSTATE CANCER, KIDNEY STONE, A fib History of Any Multi-Drug Resistant Organisms: None Reported Past Surgical History: Adenoidectomy, Orthopedic Surgery, Tonsillectomy Additional Past Surgical History / Comment(s): PROSTATE SURGERY, LEFT KNEE ARTHROSCOPIC, PPM Past Anesthesia/Blood Transfusion Reactions: No Reported Reaction Additional Past Anesthesia/Blood Transfusion Reaction / Comm: no hx blood transfusion Type of Cardiac Device: Biventricular Pacemaker Device Placement Date:: left chest 2021 Past Psychological History: No Psychological Hx Reported Smoking Status: Current some day smoker Past Alcohol Use History: Occasional Additional Past Alcohol Use History / Comment(s): STARTED SMOKING AT AGE 17 1/2 PPD QUIT SMOKING AT AGE 21 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 Past Drug Use History: None Reported - Past Family History Mother Family Medical History: No Reported History Medications and Allergies Home Medications Medication Instructions Recorded Confirmed Type Pioglitazone HCl [Actos] 30 mg PO DAILY 05/23/16 07/17/23 History allopurinoL [Zyloprim] 100 mg PO DAILY 05/23/16 07/17/23 History Fluticasone Nasal [place] [Flonase 1 - 2 spr EA NOSTRIL BID PRN 06/22/22 07/17/23 History Nasal Gibson] metFORMIN HCL ER [Glucophage XR] 1,000 mg PO BID 06/22/22 07/17/23 History Atorvastatin [Lipitor] 40 mg PO DAILY #30 tab 06/27/22 07/17/23 Rx carvediloL [Coreg*] 12.5 mg PO BID-W/MEALS #60 tab 06/27/22 07/17/23 Rx HYDROcodone/APAP 7.5-325MG [[place] 1 tab PO Q6HR PRN #12 tab 04/04/23 07/17/23 Rx 7.5-325] Apixaban [Eliquis] 5 mg PO BID 07/10/23 07/17/23 History Chlorthalidone [Hygroton] 12.5 mg PO DAILY 07/10/23 07/17/23 History lisinopriL [Zestril] 20 mg PO QAM 07/10/23 07/17/23 History Allergies Allergy/AdvReac Type Severity Reaction Status Date / Time levofloxacin [From Levaquin] Allergy Dyspnea Verified 07/17/23 09:16 mefloquine HCl [From Lariam] Allergy NIGHTMARES Verified 07/17/23 09:16 ofloxacin [From Floxin] Allergy JOINT PAIN Verified 07/17/23 09:16 HEBREW PEPPERS Allergy Dyspnea,STR Uncoded 07/17/23 09:16 IDOR Physical Exam Osteopathic Statement: *. No significant issues noted on an osteopathic structural exam other than those noted in the History and Physical/Consult. Vitals: Vital Signs Temp Pulse Resp BP BP Pulse Ox 07/18/23 07:17 98.1 F 75 16 107/56 90 L 07/18/23 01:13 98.3 F 80 19 121/58 96 07/17/23 19:28 98.7 F 81 19 113/61 96 07/17/23 15:45 64 18 151/71 98 07/17/23 15:30 63 18 153/76 98 07/17/23 15:15 64 18 130/69 97 07/17/23 15:00 97.7 F 59 L 18 146/65 96 07/17/23 14:16 60 20 122/57 97 07/17/23 14:01 60 20 135/58 100 07/17/23 13:47 60 20 155/66 100 07/17/23 13:32 60 20 156/82 99 07/17/23 13:17 67 16 169/58 100 Intake and Output 07/17/23 07/18/23 07/18/23 22:59 06:59 14:59 Output Total 350 1150 400 Balance -350 -1150 -400 Output: Urine 350 1150 400 Uretheral (Walker) 150 Other: Voiding Method Indwelling Catheter Results CBC & Chem 7: 07/18/23 06:36 Labs: Abnormal Lab Results - Last 24 Hours (Table) 07/17/23 07/18/23 Range/Units 14:24 06:36 RBC 3.45 L (4.40-5.60) X 10*6/uL Hgb 11.1 L (13.0-17.0) d/dL Hct 35.3 L (39.6-50.0) % MCV 102.3 H (80.0-97.0) FL MCH 32.2 H (27.0-32.0) pg MCHC 31.4 L (32.0-37.0) d/dL Lymphocytes # 0.89 L (0.90-5.00) X 10*3/uL Eosinophils # 0.01 L (0.04-0.35) X 10*3/uL POC Glucose (mg/dL) 163 H (70-110) mg/dL
[2023-07-18] MEDS: HYDROcodone/APAP 5-325MG 1 EACH TAB PO PRN ×3 (11:36→22:14)
[2023-07-18 13:20] LABS: Blood Urea Nitrogen 21.8 mg/dL (9.0-27.0); Carbon Dioxide 20.9 mmol/L (21.6-31.8); Chloride 103 mmol/L (96-109); Glucose 168 mg/dL (70-110); Potassium 4.7 mmol/L (3.5-5.5); Sodium 137 mmol/L (135-145)
[2023-07-18] MEDS: INSULIN ASPART (NovoLOG) 100 UNIT/ML VIAL SQ SCH ×3 (14:16→20:51)
[2023-07-18 15:38] VITALS: BMI 22.4
[2023-07-18 16:16] LABS: Glucose,Whole Blood 163 mg/dL (70-110)
[2023-07-18 21:33] LABS: Glucose,Whole Blood 227 mg/dL (70-110)
[2023-07-19] MEDS: HYDROcodone/APAP 5-325MG 1 EACH TAB PO PRN ×2 (02:07→07:48)
[2023-07-19 06:05] LABS: Glucose,Whole Blood 146 mg/dL (70-110)
[2023-07-19] MEDS: carvediloL 12.5 MG TAB PO SCH ×2 (06:47→17:16)
[2023-07-19] MEDS: INSULIN ASPART (NovoLOG) 100 UNIT/ML VIAL SQ SCH ×4 (06:49→20:40)
[2023-07-19] MEDS: APIXABAN 5 MG TAB PO SCH ×2 (07:47→20:40)
[2023-07-19] MEDS: metFORMIN 500 MG TAB PO SCH ×2 (07:47→20:40)
[2023-07-19] MEDS: ATORVASTATIN 40 MG TAB PO SCH (07:47)
[2023-07-19] MEDS: allopurinoL 100 MG TAB PO SCH (07:48)
[2023-07-19] MEDS: SENNOSIDES-DOCUSATE SODIUM 1 EACH TAB PO SCH (07:48)
[2023-07-19] MEDS: CHLORTHALIDONE 25 MG TAB PO SCH (07:48)
[2023-07-19] MEDS: lisinopriL 20 MG TAB PO SCH (07:48)
--- NOTE | 2023-07-19 08:50 | P.PN ---
Progress Note - Text Progress Note Date: 07/19/23 Orthopedic Spine History of present illness: Patient is a pleasant 78-year-old male who is seen and examined at the bedside following posterior lateral decompression and fusion performed Saturday. Patient states they are doing well post operatively. He is progressing postoperatively. His pain is adequately controlled but he does have some pain at his lumbar spine and lower extremities. He feels he is progressing but slowly. Currently does not complain of nausea, vomiting, fever, or chills. Patient is eating and voiding freely without difficulty. His Walker catheter has been discontinued. His belly is soft and he is passing gas. He does live at home alone. He states that a he does not feel he would be ready to discharge home and would do better discharging to a rehabilitation facility. Authorization was submitted by case management yesterday to [facility]. They think they can accept the patient pending approval. Hopefully he can be discharged to a rehabilitation facility tomorrow. Physical Exam Lumbar Fusion: Status post surgical day number 2 Patient is awake, alert, and oriented 3 Vital signs stable Good chest excursion with deep inspiration and expiration Abdomen soft nontender Dorsiflexion, plantarflexion, and extensor hallucis longus positive sustained bilaterally No signs or symptoms of DVT; no calf pain; pneumatic cuffs intact bilateral lower extremities Optifoam dressings are clean, dry, and intact over the lumbar spine and right iliac crest; no erythema, purulence, or signs of infection Neurovascularly intact bilaterally lower extremities Assessment: Status post L4-5 minimally invasive posterior lateral decompression and fusion with transforaminal lumbar interbody fusion Low back pain Lower extremity radiculopathy L4-5 severe spinal stenosis L4-5 spondylolisthesis and neurogenic claudication Lumbar degenerative disc disease Lumbar facet arthrosis Lower extremity weakness Type 2 diabetes Hypertension Atrial fibrillation currently on anticoagulation Systolic cardiomyopathy Plan: 1. Ambulate as tolerated; work with Physical Therapy to increase mobilization 2. Continue pain control with IV and oral medications; will plan to begin weani ng the patient off of IV narcotic medication in anticipation for discharge to [facility] rehabilitation facility hopefully tomorrow. MAPS has been reviewed today. An "Opiod Start Talking" Form has been signed and placed in the patient's chart. A prescription has been written for hydrocodone 7.5 mg/325 mg, 1 tab every 6 hours as needed for acute pain, dispensed #28. Prescription is printed, signed, and placed in the patient's chart for discharge. Prescription is also given for baclofen 10 mg 1 tab 3 times a day, as needed for muscle spasm and Senokot-S tablet twice a day, as needed for constipation, dispensed #60. 3. Dressings to remain intact with Optifoam; patient may shower with dressings intact 4. Medical management can continue to manage patient for patient's other medical diagnoses. Medicine to complete the medical record prior to discharge. 5. We will continue to follow the patient closely; depending on the patient's progress, we may plan for discharge to [facility] rehabilitation facility as early as tomorrow, 07/20/2023 6. Patient can follow-up with Armando Benites PA-C or Dr. Geovani Nava at [facility] in 2-3 weeks following discharge
[2023-07-19] MEDS ORDERED: polyethylene glycoL 3350 17 GM POWD.PACK PO PRN (10:35)
[2023-07-19 11:33] LABS: Glucose,Whole Blood 179 mg/dL (70-110)
[2023-07-19] MEDS: LACTATED RINGERS 1,000 ML IV SCH (12:29)
[2023-07-19] MEDS: HYDROcodone/APAP 7.5-325MG 1 EACH TAB PO PRN ×3 (12:35→23:53)
[2023-07-19 16:39] LABS: Glucose,Whole Blood 167 mg/dL (70-110)
--- NOTE | 2023-07-19 16:46 | P.PN ---
Subjective Progress Note Date: 07/19/23 (delayed charting seen at 1030) Patient is a 78-year-old male with known diabetes mellitus type 2 on oral medications, systolic cardiomyopathy with ejection fraction 41%, hypertension, dyslipidemia, A. fib anticoagulated with Eliquis, and multivessel coronary artery disease who presented for L4/5 minimally invasive decompression and fusion. Patient tolerated the procedure well without any immediate postoperative complications. Patient seen and examined at bedside. He continues to have some pain. It is not really controlled with his current pain medication regimen. Denies any nausea or vomiting. He denies any constipation. Vital signs reviewed General: nontoxic, no distress, appears at stated age Cardiovascular: S1S2 reg, no murmur, positive posterior tibial pulse bilateral, Lungs: CTA bilateral, no rhonchi, no rales , no accessory muscle use Abdominal: soft, nontender to palpation, no guarding, no appreciable organomegaly Ext: no gross muscle atrophy, no edema b/l lower extremities, no contractures Neuro: CN II-XI grossly intact, no focal neuro deficits Psych: Alert, oriented, appropriate affect Assessment/Plan: 78-year-old male status post L4 5 decompression and fusion, minimally invasive secondary to severe spinal stenosis. Intractable pain -Add parameters to his pain medications and [place] can be used at the 5 mg dose for mild pain, 7.5 for moderate pain. 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 Do not hesitate to contact us with questions. Someone can be reached from the [facility] hospitalist group all hours of the day at [phone] or via perfect serve. This dictation was prepared using [employer] voice recognition software. Though every attempt is made to correct errors during dictation some may still exist. Objective - Vital Signs Vital signs: Vital Signs Temp 98.7 F 07/19/23 14:00 Pulse 83 07/19/23 14:00 Resp 16 07/19/23 14:00 BP 149/70 07/19/23 14:00 Pulse Ox 96 07/19/23 14:00 FiO2 Intake & Output 07/18/23 07/19/23 07/19/23 18:59 06:59 18:59 Intake Total 180 Output Total 800 400 Balance -800 -220 Weight 75 kg Intake: Oral 180 Output: Urine 800 400 Other: Voiding Method Indwelling Catheter Toilet Toilet # Voids 4 2 2 - Labs CBC & Chem 7: 07/18/23 06:36 07/18/23 06:36 Labs: Abnormal Lab Results - Last 24 Hours (Table) 07/18/23 07/19/23 07/19/23 Range/Units 21:31 06:03 11:32 POC Glucose (mg/dL) 227 H 146 H 179 H (70-110) mg/dL 07/19/23 Range/Units 16:38 POC Glucose (mg/dL) 167 H (70-110) mg/dL
[2023-07-19 20:37] LABS: Glucose,Whole Blood 218 mg/dL (70-110)
[2023-07-20 06:22] LABS: Glucose,Whole Blood 176 mg/dL (70-110)
[2023-07-20] MEDS: carvediloL 12.5 MG TAB PO SCH (06:25)
[2023-07-20] MEDS: INSULIN ASPART (NovoLOG) 100 UNIT/ML VIAL SQ SCH (06:25)
[2023-07-20] MEDS: ATORVASTATIN 40 MG TAB PO SCH (08:38)
[2023-07-20] MEDS: metFORMIN 500 MG TAB PO SCH (08:38)
[2023-07-20] MEDS: SENNOSIDES-DOCUSATE SODIUM 1 EACH TAB PO SCH (08:38)
[2023-07-20] MEDS: lisinopriL 20 MG TAB PO SCH (08:38)
[2023-07-20] MEDS: allopurinoL 100 MG TAB PO SCH (08:38)
[2023-07-20] MEDS: CHLORTHALIDONE 25 MG TAB PO SCH (08:38)
[2023-07-20] MEDS: APIXABAN 5 MG TAB PO SCH (08:39)
[2023-07-20] MEDS: HYDROcodone/APAP 7.5-325MG 1 EACH TAB PO PRN (08:40)
--- NOTE | 2023-07-20 09:31 | P.DS ---
Providers Date of admission: 07/19/23 10:53 Expected date of discharge: 07/20/23 Attending physician: Candace Nava Consults: 07/18/23 09:04 Consult Physician Routine Consulting Provider: Antonette Guevara Consult Reason/Comments: medical manangement Do you want consulting provider notified?: Yes Primary care physician: Mojgan Acosta MD Hospital Course: This is a 78-year-old male who was admitted on 07/17/23 after undergoing L4-5 minimally invasive posterior lateral decompression and fusion with transforaminal lumbar interbody fusion with Dr. Nava. Patient was seen preoperatively by Dr. Acosta and cleared for surgery. Today is post-operative day #3. The patient is admitted to [facility] following the procedure. The procedure is performed without complication or sequelae. The patient is doing well postoperatively. Vital signs are stable. The patient is seen and examined bedside this morning. The patient states he is doing very well and is comfortable. He has been working with physical therapy. He has been up ambulating with a walker. He is urinating without issues. He has not yet had a bowel movement postoperatively, he is passing gas. He denies abdominal pain. He is tolerating his diet well and is tolerated fluids well. Patient is comfortable discharging to rehab today. Patient denies chest pain, shortness of breath, nausea, vomiting, fevers, chills. On examination, the patient is sitting up in bed in no apparent distress. He is alert and oriented 3. On inspection of his low back, there is a clean, dry, intact Optifoam dressings in place with no bleeding or drainage to the dressing. There is no erythema, warmth, drainage. Patient has good active and passive range of motion of his bilateral lower extremities. Patient is neurovascularly intact to the bilateral lower extremities. No acute change in neurologic status. Bilateral lower extremities are warm and well perfused with brisk capillary re fill. Calves are soft and non-tender to palpation bilaterally. The patient is discharged to [facility] today in good condition, pending medical clearance. Please see discharge orders. Please refer to the med rec for accurate list of medications. He should follow-up at [facility] in 2- 3 weeks. Plan - Discharge Summary Discharge Rx Participant: Yes New Discharge Prescriptions: New Baclofen 10 mg PO TID PRN #60 tab PRN Reason: Spasms HYDROcodone/APAP 7.5-325MG [[place] 7.5-325] 1 each PO Q6HR PRN #28 tab PRN Reason: Pain Sennosides-Docusate Sodium [Senokot-S] 1 tab PO BID PRN #60 tablet PRN Reason: Constipation No Action Pioglitazone HCl [Actos] 30 mg PO DAILY allopurinoL [Zyloprim] 100 mg PO DAILY carvediloL [Coreg*] 12.5 mg PO BID-W/MEALS #60 tab HYDROcodone/APAP 7.5-325MG [[place] 7.5-325] 1 tab PO Q6HR PRN #12 tab PRN Reason: Pain lisinopriL [Zestril] 20 mg PO QAM Fluticasone Nasal [place] [Flonase Nasal [place]] 1 - 2 spr EA NOSTRIL BID PRN PRN Reason: Allergy Symptoms metFORMIN HCL ER [Glucophage XR] 1,000 mg PO BID Atorvastatin [Lipitor] 40 mg PO DAILY #30 tab Apixaban [Eliquis] 5 mg PO BID Chlorthalidone [Hygroton] 12.5 mg PO DAILY Discharge Medication List Pioglitazone HCl [Actos] 30 mg PO DAILY 05/23/16 [History] allopurinoL [Zyloprim] 100 mg PO DAILY 05/23/16 [History] Fluticasone Nasal [place] [Flonase Nasal [place]] 1 - 2 spr EA NOSTRIL BID PRN 06/22/22 [History] metFORMIN HCL ER [Glucophage XR] 1,000 mg PO BID 06/22/22 [History] Atorvastatin [Lipitor] 40 mg PO DAILY #30 tab 06/27/22 [Rx] carvediloL [Coreg*] 12.5 mg PO BID-W/MEALS #60 tab 06/27/22 [Rx] HYDROcodone/APAP 7.5-325MG [[place] 7.5-325] 1 tab PO Q6HR PRN #12 tab 04/04/23 [Rx] Apixaban [Eliquis] 5 mg PO BID 07/10/23 [History] Chlorthalidone [Hygroton] 12.5 mg PO DAILY 07/10/23 [History] lisinopriL [Zestril] 20 mg PO QAM 07/10/23 [History] Baclofen 10 mg PO TID PRN #60 tab 07/19/23 [Rx] HYDROcodone/APAP 7.5-325MG [[place] 7.5-325] 1 each PO Q6HR PRN #28 tab 07/19/23 [Rx] Sennosides-Docusate Sodium [Senokot-S] 1 tab PO BID PRN #60 tablet 07/19/23 [Rx] Follow up Appointment(s)/Referral(s): Armando Benites PAC [[facility] [employer]] - 2 Weeks [facility] Chaney [NON-STAFF] - As Needed Activity/Diet/Wound Care/Special Instructions: 1. Patient may shower with Optifoam dressing intact. 2. Patient may remove Optifoam dressing in 3 days and shower without a dressing at that time. 3. Patient should refrain from driving until at least after their first follow- up appointment in the office. 4. Patient should avoid excessive bending, twisting, lifting; avoid overhead lifting; no lifting greater than 10 pounds 5. Take medications as prescribed 6. Patient should avoid anti-inflammatory medications over the next 6 weeks postoperatively 7. Do not soak in tub
[2023-07-20 09:51] VITALS: BP 136/68; PULSE 74; RESP 17; TEMP 98.9
--- NOTE | 2023-07-20 12:26 | P.PN ---
Subjective Progress Note Date: 07/20/23 (delayed charting seen at 1030) Patient is a 78-year-old male with known diabetes mellitus type 2 on oral medications, systolic cardiomyopathy with ejection fraction 41%, hypertension, dyslipidemia, A. fib anticoagulated with Eliquis, and multivessel coronary artery disease who presented for L4/5 minimally invasive decompression and fusion. Patient tolerated the procedure well without any immediate postoperative complications. Patient seen and examined at bedside. Doing well today. Pain is better controlled as he is getting [place] 7.5/325 more often. He is still not had a bowel movement but feels also that MiraLAX is working. Vital signs reviewed General: nontoxic, no distress, appears at stated age Cardiovascular: S1S2 reg, no murmur, positive posterior tibial pulse bilateral, Lungs: CTA bilateral, no rhonchi, no rales , no accessory muscle use Abdominal: soft, nontender to palpation, no guarding, no appreciable organomegaly Ext: no gross muscle atrophy, no edema b/l lower extremities, no contractures Neuro: CN II-XI grossly intact, no focal neuro deficits Psych: Alert, oriented, appropriate affect Assessment/Plan: 78-year-old male status post L4 5 decompression and fusion, minimally invasive secondary to severe spinal stenosis. 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 Medication reconciliation addressed. Imaging: None new Data Review: Blood sugars reviewed from today a.m. fasting 176, p.m. after dinner to 18. DVT prophylaxis: Mis Thank you for allowing us to participate in the care of this pleasant patient. Do not hesitate to contact us with questions. Someone can be reached from the [facility] hospitalist group all hours of the day at [phone] or via perfect serve. This dictation was prepared using [employer] voice recognition software. Though every attempt is made to correct errors during dictation some may still exist. Objective - Vital Signs Vital signs: Vital Signs Temp 98.9 F 07/20/23 07:48 Pulse 74 07/20/23 07:48 Resp 17 07/20/23 07:48 BP 136/68 07/20/23 07:48 Pulse Ox 98 07/20/23 07:48 FiO2 Intake & Output 07/19/23 07/20/23 07/20/23 18:59 06:59 18:59 Intake Total 480 Output Total 400 Balance 80 Intake: Oral 480 Output: Urine 400 Other: Voiding Method Toilet # Voids 3 2 # Bowel Movements 1 - Labs CBC & Chem 7: 07/18/23 06:36 07/18/23 06:36 Labs: Abnormal Lab Results - Last 24 Hours (Table) 07/19/23 07/19/23 07/20/23 Range/Units 16:38 20:36 06:21 POC Glucose (mg/dL) 167 H 218 H 176 H (70-110) mg/dL
== END 2023-07-20 11:03 ==
LOC: OR 08:36 → 4SSUR 13:12 → OR 07-19 10:53
PROVIDERS: ADMIT Orthopaedic Surgery Orthopaedic Surgery of the Spine; ATTEND Orthopaedic Surgery Orthopaedic Surgery of the Spine
DX: M51.16 Intervertebral disc disorders with radiculopathy, lumbar region (principal); M43.16 Spondylolisthesis, lumbar region; M48.062 Spinal stenosis, lumbar region with neurogenic claudication; M25.78 Osteophyte, vertebrae
CPT/HCPCS: 22630; 63052; 63053; 22853; 20936; 20930; 97116 ×2; 97530; 97162; 97535; 97166; 80048; 85025; 72100; G0378 ×2; C1713 ×2; C1762; J2250; J0330; J1100; J2710; J0690 ×3; J2405; J2001; J3010; J1170 ×2; J2704; J2371

== ENCOUNTER → 2024-02-26 | Outpatient (CLI) | payer MEDICARE ==
[2024-02-26 14:47] LABS: Basophils # (A) 0.01 X 10*3/uL (0.00-0.10); Basophils % (A) 0.2 %; Eosinophils # (A) 0.13 X 10*3/uL (0.04-0.35); Eosinophils % (A) 2.9 %; HCT 41.9 % (39.6-50.0); HGB 13.4 g/dL (13.0-17.0); Lymphocytes # (A) 1.05 X 10*3/uL (0.90-5.00); Lymphocytes % (A) 23.2 %; MCH 31.4 pg (27.0-32.0); MCV 98.1 FL (80.0-97.0); Mean Platelet Volume 11.8 FL (9.5-12.2); Monocytes # (A) 0.39 X 10*3/uL (0.20-1.00); Monocytes % (A) 8.6 %; NRBC Per 100 WBC 0 X 10*3/uL (0.00-0.01); Neutrophils # (A) 2.93 X 10*3/uL (1.80-7.70); Neutrophils % (A) 64.9 %; Platelet Count 202 X 10*3/uL (140-440); RBC 4.27 X 10*6/uL (4.40-5.60); RDW 12.8 % (11.5-14.5); WBC 4.52 X 10*3/uL (4.50-10.00)
[2024-02-26 14:51] LABS: ALT 19 U/L (10-49); AST 23 U/L (14-35); Albumin 4.7 g/dL (3.8-4.9); Albumin/Globulin Ratio 2.14 Ratio (1.60-3.17); Alkaline Phosphatase 72 U/L (41-126); BUN/Creat Ratio 19.93 Ratio (12.00-20.00); Blood Urea Nitrogen 27.9 mg/dL (9.0-27.0); C Reactive Protein <0.30 mg/dL (0.00-0.80); Calcium 10.2 mg/dL (8.7-10.3); Carbon Dioxide 26.2 mmol/L (21.6-31.8); Chloride 104 mmol/L (96-109); Ferritin 79.7 ng/mL (22.0-322.0); Globulin 2.2 g/dL (1.6-3.3); Glucose 172 mg/dL (70-110); Iron 74 UG/DL (65-175); Potassium 4.9 mmol/L (3.5-5.5); Sodium 142 mmol/L (135-145); Total Bilirubin 0.4 mg/dL (0.3-1.2); Total Iron Binding Capacity 370 UG/DL (228-460); Total Protein 6.9 g/dL (6.2-8.2)
[2024-02-26 15:42] LABS: Erythrocyte Sedimentation Rate 2 mm/Hr (0-20)
== END | disposition home or self-care (01) ==
LOC: LABWHC1 10:54
PROVIDERS: ATTEND Internal Medicine Gastroenterology
DX: D64.9 Anemia, unspecified (principal); R19.4 Change in bowel habit
CPT/HCPCS: 36415; 80053; 82728; 83540; 83550; 85025; 85652; 86140

== ENCOUNTER 2024-03-03 07:47 | Day surgery (SDC) | payer MEDICARE ==
[2024-02-27 13:08] VITALS: BMI 25.9
[~2024-03-03 07:47] MED LIST changes: -DEXAMETHASONE SOD PHOSPHATE 4 MG/ML 1 ML VIAL IV ONE; -HYDROmorphone 0.5 MG/0.5 ML SYRINGE IVP PRN; +LIDOCAINE 1% (10MG/ML) FOR IV START INTRADERMA PRN; -ONDANSETRON 4 MG/2 ML VIAL IVP ONE; -ceFAZolin 1,000 MG in SODIUM CHLORIDE 0.9% IRRIGATIO 1,000 ML IRRIGATION PRN
[2024-03-03 08:34] LABS: Glucose,Whole Blood 151 mg/dL (70-110)
[2024-03-03] MEDS: LACTATED RINGERS 1,000 ML IV SCH (08:36)
[2024-03-03] MEDS ORDERED: PROPOFOL 10 MG/ML 20 ML VIAL IV ONE (08:38)
[2024-03-03 08:47] VITALS: PULSE 60; RESP 16; TEMP 97.5
--- NOTE | 2024-03-03 09:18 | P.PCN ---
Date of Procedure: 03/03/24 Procedure(s) Performed: BRIEF HISTORY: Patient is a 78-year-old pleasant white Female scheduled for an elective colonoscopy as a part of evaluation of change in bowel habits. PROCEDURE PERFORMED: Colonoscopy with biopsy and snare polypectomy. PREOPERATIVE DIAGNOSIS: Change in bowel habits. IV sedation per Anesthesia. PROCEDURE: After informed consent was obtained, the patient, was brought into the endoscopy unit. IV sedation was administered by Anesthesia under continuous monitoring. Digital rectal examination was normal. Initially the Olympus CF-160 flexible video colonoscope was then inserted in the rectum, gradually advanced into the cecum without any difficulty. Careful examination was performed as the scope was gradually being withdrawn. Ileocecal valve and the appendiceal orifice were visualized and appeared normal. Prep was excellent. Mucosa of the cecum, appeared normal. Descending colon there was a 3 mm sessile polyp removed by cold biopsy. Rest of the ascending colon, transverse colon, descending colon, appeared normal. The sigmoid colon there was a 7 mm polyp removed by cold snare polypectomy. Scattered sigmoid diverticulosis seen. Rest of the sigmoid colon, and rectum appeared normal. Retroflexion was performed in the rectum and no lesions were seen. The patient tolerated the procedure well. IMPRESSION: 3 mm ascending colon polyp status post cold biopsy 7 mm sigmoid colon polyp status post snare polypectomy Scattered sigmoid diverticulosis RECOMMENDATIONS: Findings of this examination were discussed with the patient as well as his family. He was advised follow-up with the biopsy results. If the biopsy reveals adenoma he can have repeat colonoscopy in 5 years.
[2024-03-03 09:43] VITALS: BP 115/60
== END 2024-03-03 09:40 | disposition home or self-care (01) ==
LOC: ORWHC2ENDO 07:47
PROVIDERS: ATTEND Internal Medicine Gastroenterology
DX: D12.2 Benign neoplasm of ascending colon (principal); K57.30 Diverticulosis of large intestine without perforation or abscess without bleeding; I25.10 Atherosclerotic heart disease of native coronary artery without angina pectoris; I48.91 Unspecified atrial fibrillation; I10 Essential (primary) hypertension; E78.5 Hyperlipidemia, unspecified; F17.210 Nicotine dependence, cigarettes, uncomplicated; E11.9 Type 2 diabetes mellitus without complications; Z86.73 Personal history of transient ischemic attack (TIA), and cerebral infarction without residual deficits; Z79.01 Long term (current) use of anticoagulants; Z79.899 Other long term (current) drug therapy; Z88.1 Allergy status to other antibiotic agents; Z88.8 Allergy status to other drugs, medicaments and biological substances; Z98.890 Other specified postprocedural states
CPT/HCPCS: 88305; 45380; 45385; J2704

== ENCOUNTER → 2024-12-07 | Outpatient (CLI) | payer MEDICARE ==
[2024-12-07 10:34] VITALS: BP 126/84; PULSE 62; RESP 18; TEMP 97.8
--- NOTE | 2024-12-07 15:32 | P.PAINPG ---
PQRS Measure Charge Sheet Comment: HISTORY OF PRESENT ILLNESS: A 79 yr old male w daughter at side as a referral from Dr Mojgan Acosta presents today w severe and chronic LBP > 5 yrs secondary to L4-L5 decompression w fusion & hardware for evaluation. Pt states pain level is provoked at 6 /10 in intensity, constant, localized in the lumbar spine, predominantly axial, sharp in character w occasional shooting pain towards the gluts and RLE. Pain is provoked by sitting from a supine position. Pain is alleviated by massage therapy semi monthly which since Fall 2023, physician guided home stretches daily since Summer 2023, visiting PO/OT 4 days weekly since Nov 2023, heat, medications, topical, use of a walker, repositioning and rest . Oswestry axial pain score at 30. PMH: OA, aFib, CAD, Prostate CA, CVA, NIDDM II, Hyperlipidemia, HTN, Nephrolithiasis PSH: L4-L5 Decompression/ Fusion, BiVentricular Pacemaker (2021), Colonoscopy (), Adenoidectomy, L Knee Arthroscopy, Tonsillectomy, Cataract (2022), Prostatetomy (2023) SH: Daily tobacco use, Occ ETOH use, No illicit drug use FH: Mo- No Reported History All: See list Meds: See list incl Ibu, BioFreeze REVIEW OF ORGAN SYSTEMS: CONSTITUTIONAL: No fevers or chills. No recent weight loss. NEUROLOGICAL: + numbness and tingling along the distal extremities. No seizure disorders or headaches. MUSCULOSKELETAL: + pain PSYCHIATRIC: Denies current depression or suicidal thoughts. Physical Examinations : Constitutional : Cooperative , not in acute distress . Neurologic : Cranial nerve II to XII intact. No focal neurological deficits. Psychiatric : alert & oriented x 3. Matching mood & appropriate affect. Judgment & insight intact. Musculoskeletal : Cervical Spine Motor strength in the deltoid and biceps: Normal right side. Normal Left side Motor strength biceps and the wrist extensors: Normal right side . Normal left side Motor strength in the triceps muscle: Normal right side. Normal left side Deep tendon reflexes: Normal at the biceps. Normal at Brachioradialis. Normal at triceps Vertebral body tenderness to deep palpation over Cervical facet loading test: positive bilaterally Spurling test: positive bilaterally Neck distraction test: positive bilaterally Keiko sign: positive bilaterally Lumbar spine +Incisional scars intact Motor strength lower extremities ,thigh and legs 5/5 Right side , 5/5 Left side Deep tendon reflexes : Normal Knee Jerk. Normal Ankle Jerk Vertebral body tenderness over L5 Mojica Test positive BL L5-S1 Lumbar facet Loading Test: positive Right / positive Left Range of motion of the lumbar spine Flexion 30 degrees, extension 10 degrees Straight Leg Raise test: Left/ Right positive at degrees Yaa test: positive right / positive left. Severe tenderness over the Sacroiliac joint on the Right / Left sides Gaenslen test: positive bilaterally Seated flexion test: positive bilaterally. Sacral spine : Severe tenderness over the Sacroiliac joint: right side / left side Range of motion: Flexion of the lumbar spine <60 degrees Range of motion: Extension of the lumbar spine <20 degrees Gaenslen's Test positive Yaa test: positive right side / left side Thigh Thrust Test Sacral Thrust Test Imaging: CT scan noncontrast of the lumbar spine from 04/29/2023 reviewed Assessment/ Plan : L4-L5 decompression/ fusion w hardware Recommendation of KECIA L5-S1 #1. Risks, benefits of procedure discussed and patient verbalized understanding. Admits to anti- coagulant use or medical history of diabetes. Protocol for discontinuation/ continuation of medications delvin procedure discussed. All questions answered. I have spent greater than 30 minutes on patient care today. Dr Mendoza was available by phone for the evaluation of this patient. The time was used to review the medical records including relevant urine studies and Prescription history (MAPs), review of the available imaging, evaluation and examination of the patient, coordination of care with the medical staff and if applicable referring physicians, as well as creation of the medical record - Pain Location Buttock Non-Pharmacological Interventions: Heat Pharmacological Interventions: Medication PQRS Narrative: Smoking Status Current some day smoker Home Medications: Ambulatory Orders Pioglitazone HCl [Actos] 30 mg PO DAILY 05/23/16 allopurinoL [Zyloprim] 100 mg PO DAILY 05/23/16 Fluticasone Nasal [place] [Flonase Nasal [place]] 1 - 2 spr EA NOSTRIL BID PRN 06/22/22 metFORMIN HCL ER [Glucophage XR] 1,000 mg PO BID 06/22/22 Atorvastatin [Lipitor] 40 mg PO DAILY #30 tab 06/27/22 carvediloL [Coreg*] 12.5 mg PO BID-W/MEALS #60 tab 06/27/22 Apixaban [Eliquis] 5 mg PO BID 07/10/23 Chlorthalidone [Hygroton] 12.5 mg PO DAILY 07/10/23 lisinopriL [Zestril] 40 mg PO QAM 07/10/23 DULoxetine HCL 40 mg PO DAILY 02/27/24 Ibuprofen [Motrin Ib] 200 mg PO Q8H PRN 02/27/24 Vit C/E/Zn/Coppr/Lutein/Zeaxan [Preservision Areds 2 Softgel] 1 each PO BID 02/27/24 Apixaban [Eliquis] 5 mg PO DAILY 12/07/24 Atorvastatin [Lipitor] 40 mg PO DAILY 12/07/24 Chlorthalidone [Hygroton] 12/07/24 DULoxetine HCL [Cymbalta] 60 mg PO 12/07/24 Furosemide [Lasix] 20 mg PO DAILY 12/07/24 Hydrocodone/Acetaminophen [Hydrocodone/Acetaminophen 10-325/15] 5 ml PO Q8H 12/07/24 diazePAM [Valium] 5 mg PO DAILY 1 Days #2 tab 12/07/24 Controlled Substance Measures - Controlled Substance Measures Is patient prescribed a controlled substance at discharge?: Yes When asked, does pt state using other controlled substances?: Yes If prescribed controlled substance>3 days was MAPS reviewed?: Prescribed <3 Days
== END ==
LOC: PNWHC3 09:31
PROVIDERS: ATTEND Specialist
DX: M43.26 Fusion of spine, lumbar region (principal); F17.210 Nicotine dependence, cigarettes, uncomplicated; Z79.899 Other long term (current) drug therapy; Z88.1 Allergy status to other antibiotic agents; Z88.8 Allergy status to other drugs, medicaments and biological substances; Z91.018 Allergy to other foods
CPT/HCPCS: 99202

== ENCOUNTER 2025-01-15 08:06 | Day surgery (SDC) | payer MEDICARE ==
[2025-01-14 10:03] VITALS: BMI 26.4
[~2025-01-15 08:06] MED LIST changes: +LACTATED RINGERS 1,000 ML IV SCH; -LIDOCAINE 1% (10MG/ML) FOR IV START INTRADERMA PRN
[2025-01-15 08:27] VITALS: TEMP 97.1
[2025-01-15 08:41] LABS: Glucose,Whole Blood 217 mg/dL (70-110)
[2025-01-15] MEDS ORDERED: IOPAMIDOL M200 10 ML VIAL ONE (09:16)
[2025-01-15] MEDS ORDERED: methylPREDNISolone ACETATE 40 MG/ML 1 ML VIAL ONE (09:16)
--- NOTE | 2025-01-15 09:24 | P.PCN ---
Date of Procedure: 01/15/25 Procedure(s) Performed: PREOPERATIVE DIAGNOSIS: 1- Lumbar radiculopathy 2-Lumbar laminectomy and fusion at L4-5 POSTOPERATIVE DIAGNOSIS: Same as preop diagnosis PROCEDURE 1. Lumbar epidural steroid injection under fluoroscopic guidance at the L5-S1 level. (Fluoroscopy imaging was available in radiology department) 2. Lumbar epidurogram. ANESTHESIA: Lidocaine 1% 3 and then only. EBL: Minimal PROCEDURE INDICATION: The patient with low back pain and radiculitis symptoms unresponsive to conservative treatment. Fluoroscopy was used to optimize visualization of the needle placement and to maximize safety. PROCEDURE DESCRIPTION / TECHNIQUE: The patient was seen and identified in the preoperative area. Risks, benefits, complications including but not limited to infections ,bleeding ,allergic reaction to the medications ,nerve damage and not complete pain releife , and alternatives were discussed with the patient. The patient agreed to proceed with the procedure and signed the consent, and vital signs were stable. Patient was taken to the OR and time out was completed. The patient was placed in the prone position on procedure table and a pillow was placed under the abdomen to reduce lumbar lordosis. The lumbosacral area was prepped and draped in the usual sterile fashion.ere closely monitored during the procedure. Vital signs was monitered during the entire procedure. Using anterior-posterior fluoroscopy, the L5-S1 interlaminar space was identified and the skin over this site was marked and then infiltrated with 1% lidocaine subcutaneously. Subsequently, a 20-gauge Tuohy epidural needle was inserted and advanced toward the epidural space using the ``Loss of resistance technique and guided by AP and lateral fluoroscopy. The correct needle position in the epidural space was verified with the injection of 2 mL of the water soluble contrast dye Isovue 200 contrast and observing an excellent epidurogram with the epidural spread of the dye, after negative aspiration for blood and CSF and in the absence of paresthesias. Again after negative aspiration, a 4 ml mixture containing 40 mg of Depo-medrol ( Preservetive Free ), and 2 ml of preservative free Normal Saline, and 2 ml of preservative free lidocaine 1% solution was injected and a washout of epidurogram was seen. Needle was withdrawn intact, skin was cleansed, and bandages were applied. COMPLICATIONS: None DISPOSITION / PLANS: The patient was placed in a supine position and transferred to the recovery area in a stable condition for observation. There was no evidence of lower extremity motor or sensory deficit after the procedure. Patient was discharged from the recovery room after meeting discharge criteria. Home discharge instructions were given to the patient by the staff. The patient was reexamined prior to discharge. The patient will schedule a follow up in the clinic in 2-4 weeks. Patient held ELIQUIS for more than 72 hours
[2025-01-15 09:32] VITALS: RESP 16
[2025-01-15 10:08] VITALS: BP 172/80; PULSE 78
--- NOTE | 2025-01-15 10:10 | FL ---
EXAMINATION TYPE: FL guided pain mgmt statistic DATE OF EXAM: 01/15/2025 FLUOROSCOPY 3 SEC [id number] .[id number] DAP DOSE Single image demonstrating midline lumbar vertebral injection near the L5 level. Partially visualized posterior and interbody lumbar fusion hardware. [facility], , 01/15/2025 10:08 AM
== END 2025-01-15 10:06 | disposition home or self-care (01) ==
LOC: ORPAIN 08:06
PROVIDERS: ATTEND Specialist
DX: M54.16 Radiculopathy, lumbar region (principal); M96.1 Postlaminectomy syndrome, not elsewhere classified; E11.9 Type 2 diabetes mellitus without complications; Z79.01 Long term (current) use of anticoagulants; Z79.899 Other long term (current) drug therapy; Z88.8 Allergy status to other drugs, medicaments and biological substances; Z88.5 Allergy status to narcotic agent; Z79.84 Long term (current) use of oral hypoglycemic drugs; Z88.1 Allergy status to other antibiotic agents
CPT/HCPCS: 62323; Q9966; J1010

== ENCOUNTER → 2025-02-01 | Outpatient (CLI) | payer MEDICARE ==
[2025-02-01 11:23] VITALS: BP 131/78; PULSE 70; RESP 18; TEMP 98.4
--- NOTE | 2025-02-01 14:31 | P.PAINPG ---
PQRS Measure Charge Sheet History and Exam Findings: Positive provocation test Comment: HISTORY OF PRESENT ILLNESS: A 79 yr old male w caregiver at side presents today w severe and chronic LBP > 5 yrs secondary to L4-L5 decompression w fusion & hardware for evaluation s/p KECIA L5-S1 #1. Pt states he experienced 50 % pain relief x 2 wks s/p procedure. Pt states pain level is provoked at 2-8 /10 in intensity, constant, localized in the lumbar spine, predominantly axial, sharp in character w occasional shooting pain towards the R thigh to R foot. Pain is provoked by sitting from a supine position. Pain is alleviated by massage therapy semi monthly which since Fall 2023, physician guided home stretches daily since Summer 2023, visiting PO/OT 4 days weekly since Nov 2023, heat, medications, topical, use of a cane for ambulatory assistance, repositioning and rest . Pt admits to having prostate surgery and is having delvin rectal pain that is severe, constant, provoked with standing from a sitting position. Interventional procedures include L4-L5 Decompression/ Fusion, KECIA L5-S1 x1 Medications include Ibu, BioFreeze REVIEW OF ORGAN SYSTEMS: CONSTITUTIONAL: No fevers or chills. No recent weight loss. NEUROLOGICAL: + numbness and tingling along the distal extremities. No seizure disorders or headaches. MUSCULOSKELETAL: + pain PSYCHIATRIC: Denies current depression or suicidal thoughts. Physical Examinations : Constitutional : Cooperative , not in acute distress . Neurologic : Cranial nerve II to XII intact. No focal neurological deficits. Psychiatric : alert & oriented x 3. Matching mood & appropriate affect. Judgment & insight intact. Musculoskeletal : Cervical Spine Motor strength in the deltoid and biceps: Normal right side. Normal Left side Motor strength biceps and the wrist extensors: Normal right side . Normal left side Motor strength in the triceps muscle: Normal right side. Normal left side Deep tendon reflexes: Normal at the biceps. Normal at Brachioradialis. Normal at triceps Vertebral body tenderness to deep palpation over Cervical facet loading test: positive bilaterally Spurling test: positive bilaterally Neck distraction test: positive bilaterally Keiko sign: positive bilaterally Lumbar spine +Incisional scars intact Motor strength lower extremities ,thigh and legs 5/5 Right side , 5/5 Left side Deep tendon reflexes : Normal Knee Jerk. Normal Ankle Jerk Vertebral body tenderness over L5 Mojica Test positive R L4-L5/ L5-S1 Lumbar facet Loading Test: positive Right / positive Left Range of motion of the lumbar spine Flexion 30 degrees, extension 10 degrees Straight Leg Raise test: Left/ Right positive at degrees Yaa test: positive right / positive left. Severe tenderness over the Sacroiliac joint on the Right / Left sides Gaenslen test: positive bilaterally Seated flexion test: positive bilaterally. Sacral spine : Severe tenderness over the Sacroiliac joint: right side / left side Range of motion: Flexion of the lumbar spine <60 degrees Range of motion: Extension of the lumbar spine <20 degrees Gaenslen's Test positive Yaa test: positive right side / left side Thigh Thrust Test Sacral Thrust Test Imaging: CT scan non contrast of the lumbar spine from 04/29/2023 reviewed Assessment/ Plan : L4-L5 decompression/ fusion w hardware Recommendation of R TFESI L4-L5/ L5-S1 #1. Would benefit from Ganglion Impar NB in the near future. Risks, benefits of procedure discussed and patient verbalized understanding. Admits to anti- coagulant use or medical history of diabetes. Protocol for discontinuation/ continuation of medications delvin procedure discussed. All questions answered. I have spent greater than 30 minutes on patient care today. Dr Mendoza was available by phone for the evaluation of this patient. The time was used to review the medical records including relevant urine studies and Prescription history (MAPs), review of the available imaging, evaluation and examination of the patient, coordination of care with the medical staff and if applicable referring physicians, as well as creation of the medical record PQRS Narrative: Smoking Status Current some day smoker Hx Alcohol Use (MH) Yes Home Medications: Ambulatory Orders Pioglitazone HCl [Actos] 30 mg PO DAILY 05/23/16 allopurinoL [Zyloprim] 100 mg PO DAILY 05/23/16 Fluticasone Nasal Greene [Flonase Nasal Greene] 1 - 2 spr EA NOSTRIL BID PRN 06/22/22 metFORMIN HCL ER [Glucophage XR] 1,000 mg PO BID 06/22/22 Atorvastatin [Lipitor] 40 mg PO DAILY #30 tab 06/27/22 carvediloL [Coreg*] 12.5 mg PO BID-W/MEALS #60 tab 06/27/22 Apixaban [Eliquis] 5 mg PO BID 07/10/23 Chlorthalidone [Hygroton] 12.5 mg PO DAILY 07/10/23 lisinopriL [Zestril] 40 mg PO QAM 07/10/23 Ibuprofen [Motrin Ib] 200 mg PO Q8H PRN 02/27/24 Vit C/E/Zn/Coppr/Lutein/Zeaxan [Preservision Areds 2 Softgel] 1 each PO BID 02/27/24 DULoxetine HCL [Cymbalta] 60 mg PO DAILY 12/07/24 Furosemide [Lasix] 20 mg PO DAILY 12/07/24 diazePAM [Valium] 5 mg PO DAILY 1 Days #2 tab 12/07/24 Controlled Substance Measures - Controlled Substance Measures Is patient prescribed a controlled substance at discharge?: No
== END ==
LOC: PNWHC3 10:25
PROVIDERS: ATTEND Specialist
DX: M54.50 Low back pain, unspecified (principal); G89.29 Other chronic pain; F17.200 Nicotine dependence, unspecified, uncomplicated; Z88.1 Allergy status to other antibiotic agents; Z88.8 Allergy status to other drugs, medicaments and biological substances; Z91.018 Allergy to other foods; Z98.1 Arthrodesis status
CPT/HCPCS: 99212

== ENCOUNTER 2025-02-16 06:54 | Day surgery (SDC) | payer MEDICARE ==
[2025-02-12 10:05] VITALS: BMI 27.1
[2025-02-16 07:21] LABS: Glucose,Whole Blood 186 mg/dL (70-110)
[2025-02-16 07:22] VITALS: BP 168/85; PULSE 70; RESP 16; TEMP 97.9
--- NOTE | 2025-02-16 08:19 | P.PN ---
Progress Note - Text Progress Note Date: 02/16/25 This is 79 years old male who was scheduled to have right side transforaminal epidural steroid injection, in the preop holding area today we found out that the patient took his Eliquis 2 days ago, JANES commendation is to hold Eliquis for 3 days before spinal injections, for this reason the procedure was canceled and patient will be rescheduled and patient has to hold his Eliquis for 3 days before the procedure
== END 2025-02-16 07:39 | disposition home or self-care (01) ==
LOC: ORPAIN 06:54
PROVIDERS: ATTEND Specialist
DX: M54.16 Radiculopathy, lumbar region (principal); Z53.9 Procedure and treatment not carried out, unspecified reason

== ENCOUNTER 2025-02-19 11:04 | Day surgery (SDC) | payer MEDICARE ==
[2025-02-19 12:36] VITALS: TEMP 97.4
[2025-02-19 12:36] LABS: Glucose,Whole Blood 200 mg/dL (70-110)
[2025-02-19] MEDS ORDERED: IOPAMIDOL M200 10 ML VIAL ONE (13:07)
[2025-02-19] MEDS ORDERED: methylPREDNISolone ACETATE 40 MG/ML 1 ML VIAL ONE (13:07)
--- NOTE | 2025-02-19 13:22 | P.PCN ---
Date of Procedure: 02/19/25 Procedure(s) Performed: PREOPERATIVE DIAGNOSIS: 1-Lumbar radiculopathy . 2-postlaminectomy pain syndrome lumbar area POSTOPERATIVE DIAGNOSIS: 1-lumbar radiculopathy. 2-postlaminectomy pain syndrome lumbar area PROCEDURE 1. Transforaminal epidural steroid injection under fluoroscopic guidance at right L4-5, right L5-S1 level. (Fluoroscopy images stored on file in the radiology Department ) 2. Lumbar epidurogram . ANESTHESIA: Local with 1% lidocaine 3 ml. EBL: Minimal PROCEDURE INDICATION: The patient with low back pain and radiculopathy symptoms unresponsive to conservative treatment. PROCEDURE DESCRIPTION / TECHNIQUE: The patient was seen and identified in the preoperative area. Risks, benefits, complications, and alternatives were discussed with the patient. The patient agreed to proceed with the procedure and signed the consent, and vital signs were stable. Patient was taken to the OR and time out was completed. The patient was placed in the prone position on procedure table and a pillow was placed under the abdomen to reduce lumbar lordosis. The lumbosacral area was prepped and draped in the usual sterile fashion. Critical pause was taken. Vital signs were closely monitored during the procedure. Using oblique fluoroscopy, the chin of the ``Nakul dog at right L4-5 level was identified, and the skin and deeper tissues just below was localized with 1% lidocaine. Subsequently, a 22-gauge 5-inch spinal needle was advanced under a tunneled view fluoroscopic guidance just underneath the chin of the ``Nakul dog at the right L4-5 Under lateral fluoroscopy, the needle was then advanced to the posterior border of the interforaminal space. After negative aspiration of CSF and blood and with no paresthesias, 1 mL Isovue 200 contrast dye was injected excellent epidurogram and outlining of the nerve root Subsequently, 3 mL of block solution containing 20 mg Depo-Medrol and 2 mL of 0.9% normal saline PF was injected. Needle was removed and the same procedure was repeated at the right L5-S1 level . At the end of the procedure, skin was cleansed, and bandages were applied. COMPLICATIONS:none DISPOSITION / PLANS: The patient was placed in a supine position and transferred to the recovery area in a stable condition for observation. There was no evidenc e of lower extremity motor or sensory deficit after the procedure. Patient was discharged from the recovery room after meeting discharge criteria. Home discharge instructions were given to the patient by the staff. The patient was reexamined prior to discharge. Patient held Eliquis for 3 days
[2025-02-19 13:27] VITALS: PULSE 70; RESP 18
--- NOTE | 2025-02-19 13:29 | FL ---
EXAMINATION TYPE: FL guided pain mgmt statistic DATE OF EXAM: 02/19/2025 CLINICAL INDICATION: Male, 79 years old with history of Transforaminal Inj; PHH, pain. TECHNIQUE: Fluoroscopy. COMPARISON: None. FINDINGS: Fluoroscopic guidance was provided during pain relief procedure performed by Dr. Mendoza . A total of 8.5 seconds of fluoroscopic time was utilized during the procedure and 3 spot images ar e acquired. Images acquired shows needle localization in the lumbar spine. Posterior interpedicular rods and screws and metallic disc spacer at L3-L4 level is noted. Total DAP: 0.71189 mGym2. IMPRESSION: As Above. [facility], , 02/19/2025 1:26 PM
[2025-02-19 13:39] VITALS: BP 163/85
== END 2025-02-19 13:45 | disposition home or self-care (01) ==
LOC: ORPAIN 11:04
PROVIDERS: ATTEND Specialist
DX: M54.16 Radiculopathy, lumbar region (principal); Z88.8 Allergy status to other drugs, medicaments and biological substances; Z88.1 Allergy status to other antibiotic agents
CPT/HCPCS: 64483; 64484; Q9966; J1010

== ENCOUNTER 2025-02-21 09:41 | Inpatient (IN) | payer MEDICARE ==
--- NOTE | 2025-02-21 10:00 | ED ---
General Adult HPI - General Chief complaint: Weakness Stated complaint: Weakness Time Seen by Provider: 02/21/25 09:45 Source: patient, EMS, RN notes reviewed Mode of arrival: EMS Limitations: no limitations - History of Present Illness Initial comments: Patient is a 79-year-old male presents emergency department with concerns with general weakness. Symptoms are generalized, not limited to the legs. Patient did have L5-S1 injection on the right side secondary to sciatica 2 days ago. Symptoms have progressed since that time. Patient states his pain has resolved. Weakness is not limited to the legs nor a single side. Patient was using his walker however had great difficulty even with that. No confusion. No speech problems. No upper respiratory symptoms. - Related Data Home Medications Medication Instructions Recorded Confirmed Pioglitazone HCl [Actos] 30 mg PO DAILY 05/23/16 02/19/25 allopurinoL [Zyloprim] 100 mg PO DAILY 05/23/16 02/19/25 Fluticasone Nasal [place] [Flonase 1 - 2 spr EA NOSTRIL BID PRN 06/22/22 02/19/25 Nasal [place]] metFORMIN HCL ER [Glucophage XR] 1,000 mg PO BID 06/22/22 02/19/25 Apixaban [Eliquis] 5 mg PO BID 07/10/23 02/19/25 Chlorthalidone [Hygroton] 12.5 mg PO DAILY 07/10/23 02/19/25 lisinopriL [Zestril] 40 mg PO QAM 07/10/23 02/19/25 Ibuprofen [Motrin Ib] 200 mg PO Q8H PRN 02/27/24 02/19/25 Vit C/E/Zn/Coppr/Lutein/Zeaxan 1 each PO BID 02/27/24 02/19/25 [Preservision Areds 2 Softgel] DULoxetine HCL [Cymbalta] 60 mg PO DAILY 12/07/24 02/19/25 Furosemide [Lasix] 20 mg PO DAILY 12/07/24 02/19/25 Previous Rx's Medication Instructions Recorded Atorvastatin [Lipitor] 40 mg PO DAILY #30 tab 06/27/22 carvediloL [Coreg*] 12.5 mg PO BID-W/MEALS #60 tab 06/27/22 Allergies Allergy/AdvReac Type Severity Reaction Status Date / Time levofloxacin [From Levaquin] Allergy Dyspnea Verified 02/21/25 09:48 mefloquine HCl [From Lariam] Allergy NIGHTMARES Verified 02/21/25 09:48 ofloxacin [From Floxin] Allergy JOINT PAIN Verified 02/21/25 09:48 CHINESE PEPPERS Allergy Dyspnea,STR Uncoded 02/21/25 09:48 IDOR Review of Systems ROS Statement: Those systems with pertinent positive or pertinent negative responses have been documented in the HPI. ROS Other: All systems not noted in ROS Statement are negative. Constitutional: Denies: fever, chills ENT: Denies: ear pain Respiratory: Denies: cough, dyspnea Cardiovascular: Denies: chest pain, palpitations Gastrointestinal: Denies: abdominal pain Neurological: Reports: as per HPI, weakness. Denies: headache, confusion Past Medical History Past Medical History: Atrial Fibrillation, Coronary Artery Disease (CAD), Cancer, CVA/TIA, Diabetes Mellitus, Hyperlipidemia, Hypertension, Osteoarthritis (OA), Prostate Disorder Additional Past Medical History / Comment(s): PROSTATE CANCER, KIDNEY STONE, A fib History of Any Multi-Drug Resistant Organisms: None Reported Past Surgical History: Adenoidectomy, Back Surgery, Orthopedic Surgery, Tonsillectomy Additional Past Surgical History / Comment(s): PROSTATE SURGERY, LEFT KNEE ARTHROSCOPIC, PPM, COLONOSCOPY, PAIN CLINIC PROCEDURE Past Anesthesia/Blood Transfusion Reactions: No Reported Reaction Additional Past Anesthesia/Blood Transfusion Reaction / Comment(s): no hx blood transfusion Type of Cardiac Device: Biventricular Pacemaker Device Placement Date:: left chest 2021 Past Psychological History: No Psychological Hx Reported Smoking Status: Current some day smoker, Light tobacco smoker Past Alcohol Use History: Daily Past Drug Use History: None Reported - Past Family History Mother Family Medical History: No Reported History General Exam Limitations: no limitations General appearance: alert, in no apparent distress Head exam: Present: normocephalic Eye exam: Present: normal appearance, PERRL, EOMI ENT exam: Present: normal oropharynx Neck exam: Present: normal inspection. Absent: tenderness, meningismus Respiratory exam: Present: normal lung sounds bilaterally Cardiovascular Exam: Present: tachycardia, irregular rhythm GI/Abdominal exam: Present: soft. Absent: tenderness Extremities exam: Present: normal inspection. Absent: pedal edema, calf tenderness Neurological exam: Present: alert, oriented X3, CN II-XII intact. Absent: motor sensory deficit Expanded Neurological exam: Present: protecting the airway Patient oriented to: Present: person, place, time Speech: Present: fluid speech Cranial nerves: EOM's Intact: Normal Sensory exam: Upper Extremity Light Touch: Normal, Lower Extremity Light Touch: Normal Motor strength exam: RUE: 5, LUE: 5, RLE: 5, LLE: 5 Eye Response: (4) open spontaneously Motor Response: (6) obeys commands Verbal Response: (5) oriented Psychiatric exam: Present: normal affect, normal mood Skin exam: Present: normal color Course Vital Signs 02/21/25 02/21/25 09:44 10:51 Temperature 97.9 F Pulse Rate 125 H 70 Respiratory 18 18 Rate Blood Pressure 124/82 150/79 O2 Sat by Pulse 100 98 Oximetry EKG Findings - EKG Results: EKG: interpreted by JIAD (Paced rhythm with rate of 126. Appearance of underlying A-fib. Left axis. History AV block with MT of 225. Wide-complex QRS, right bundle branch block. Nonspecific ST-T.) Medical Decision Making - Medical Decision Making EKG #2 interpreted by myself shows paced rhythm with underlying probable A-fib. Left axis. Wide QRS complex, suspicious right bundle branch block. Nonspecific T waves Was pt. sent in by a medical professional or institution (, PA, TRANSPLANT CASE MANAGER, urgent care, hospital, or long-term...) When possible be specific @ -No Did you speak to anyone other than the patient for history (EMS, parent, family, police, friend...)? What history was obtained from this source @ -No Did you review nursing and triage notes (agree or disagree)? Why? @ -I reviewed and agree with nursing and triage notes Were old charts reviewed (outside hosp., previous admission, EMS record, old EKG, old radiological studies, urgent care reports/EKG's, long-term records)? Report findings @ -No old charts were reviewed Differential Diagnosis (chest pain, altered mental status, abdominal pain women, abdominal pain men, vaginal bleeding, weakness, fever, dyspnea, syncope, hea dache, dizziness, GI bleed, back pain, seizure, CVA, palpatations, mental health, musculoskeletal)? @ -Differential Weakness: Hypoglycemia, shock, sepsis, hyponatremia, anemia, infection, PA, ETOH, adverse medicine reaction, overdose, stroke, this is not meant to be an all-inclusive list. EKG interpreted by me (3pts min.). @ -As above X-rays interpreted by me (1pt min.). @ -Chest x-ray shows hazy appearance concerning for CHF CT interpreted by me (1pt min.). @ -None done U/S interpreted by me (1pt. min.). @ -None done What testing was considered but not performed or refused? (CT, X-rays, U/S, labs)? Why? @ -None What meds were considered but not given or refused? Why? @ -None Did you discuss the management of the patient with other professionals (professionals i.e. , PA, TRANSPLANT CASE MANAGER, lab, RT, psych nurse, social worker delinquency prevention, show girl, teacher, marketing and communications officer, director case)? Give summary @ -Dirk, practitioner Lavon admitted covering hospital call Was smoking cessation discussed for >3mins.? @ -No Was critical care preformed (if so, how long)? @ -31 minutes critical care time Were there social determinants of health that impacted care today? How? (Homelessness, low income, unemployed, alcoholism, drug addiction, transportation, low edu. Level, literacy, decrease access to med. care, fci, rehab)? @ -No Was there de-escalation of care discussed even if they declined (Discuss DNR or withdrawal of care, Hospice)? DNR status @ -No What co-morbidities impacted this encounter? (DM, HTN, Smoking, COPD, CAD, Cancer, CVA, ARF, Chemo, Hep., AIDS, mental health diagnosis, sleep apnea, morbid obesity)? @ -History of A-fib. Patient has been off of his Eliquis for 1 week secondary to steroid injection a couple of days ago. Was patient admitted / discharged? Hospital course, mention meds given and route, prescriptions, significant lab abnormalities, going to OR and other pertinent info. @ -Patient presents with generalized weakness. Patient is A-fib RVR however rate controlled prior to starting Cardizem. Lab and x-ray concerning for CHF. Also concern for non-STEMI. Patient will be admitted with cardiac consult. Patient reevaluated and updated. Undiagnosed new problem with uncertain prognosis? @ -No Drug Therapy requiring intensive monitoring for toxicity (Heparin, Nitro, Insulin, Cardizem)? @ -Heparin drip will be started Were any procedures done? @ -No Diagnosis/symptom? @ -CHF, non-ST elevation myocardial infarction Acute, or Chronic, or Acute on Chronic? @ -Acute, acute Uncomplicated (without systemic symptoms) or Complicated (systemic symptoms)? @ -Default Side effects of treatment? @ -No Exacerbation, Progression, or Severe Exacerbation? @ -No Poses a threat to life or bodily function? How? (Chest pain, USA, PA, pneumonia, PE, COPD, DKA, ARF, appy, cholecystitis, CVA, Diverticulitis, Homicidal, Suicidal, threat to staff... and all critical care pts) @ -Threat to cardiac function - Lab Data Result diagrams: 02/21/25 09:59 02/21/25 09:59 Lab Results 02/21/25 02/21/25 02/21/25 Range/Units 09:59 09:59 09:59 WBC 5.22 (4.50-10.00) 10*3/uL RBC 4.24 L (4.40-5.60) 10*6/uL Hgb 14.0 (13.0-17.0) g/dL Hct 40.4 (39.6-50.0) % MCV 95.3 (80.0-97.0) fL MCH 33.0 H (27.0-32.0) pg MCHC 34.7 (32.0-37.0) g/dL Plt Count 156 (140-440) 10*3/uL MPV 11.4 (9.5-12.2) fL Immature Gran % (Auto) 0.4 % Neutrophils % 76.6 % Lymphocytes % 11.1 % Monocytes % 11.5 % Eosinophils % 0.0 % Basophils % 0.4 % Immature Gran # 0.02 (0.00-0.04) 10*3/uL Neutrophils # 4.00 (1.80-7.70) 10*3/uL Lymphocytes # 0.58 L (0.90-5.00) 10*3/uL Monocytes # 0.60 (0.20-1.00) 10*3/uL Eosinophils # 0.00 L (0.04-0.35) 10*3/uL Basophils # 0.02 (0.00-0.10) 10*3/uL PT 11.1 (10.0-12.5) sec INR 1.0 (<1.2) APTT 22.1 (22.0-30.0) sec Sodium 138 (137-145) mmol/L Potassium 3.4 L (3.5-5.1) mmol/L Chloride 101 (98-107) mmol/L Carbon Dioxide 22 (22-30) mmol/L Anion Gap 15 mmol/L BUN 36 H (9-20) mg/dL Creatinine 1.22 (0.66-1.25) mg/dL Est GFR (CKD-EPI)AfAm 65 (>60 ml/min/1.73 sqM) Est GFR (CKD-EPI)NonAf 56 (>60 ml/min/1.73 sqM) Glucose 139 H (74-99) mg/dL Plasma Lactic Acid Stanley (0.7-2.0) mmol/L Calcium 10.0 (8.4-10.2) mg/dL Magnesium 1.9 (1.6-2.3) mg/dL Total Bilirubin 1.0 (0.2-1.3) mg/dL AST 233 H (17-59) U/L ALT 62 H (4-49) U/L Alkaline Phosphatase 64 (38-126) U/L Troponin I (0.000-0.034) ng/mL NT-Pro-B Natriuret Pep 62838 pg/mL Total Protein 6.8 (6.3-8.2) g/dL Albumin 4.2 (3.5-5.0) g/dL TSH 3.310 (0.465-4.680) mIU/L Free T4 1.57 (0.78-2.19) ng/dL 02/21/25 02/21/25 Range/Units 09:59 09:59 WBC (4.50-10.00) 10*3/uL RBC (4.40-5.60) 10*6/uL Hgb (13.0-17.0) g/dL Hct (39.6-50.0) % MCV (80.0-97.0) fL MCH (27.0-32.0) pg MCHC (32.0-37.0) g/dL Plt Count (140-440) 10*3/uL MPV (9.5-12.2) fL Immature Gran % (Auto) % Neutrophils % % Lymphocytes % % Monocytes % % Eosinophils % % Basophils % % Immature Gran # (0.00-0.04) 10*3/uL Neutrophils # (1.80-7.70) 10*3/uL Lymphocytes # (0.90-5.00) 10*3/uL Monocytes # (0.20-1.00) 10*3/uL Eosinophils # (0.04-0.35) 10*3/uL Basophils # (0.00-0.10) 10*3/uL PT (10.0-12.5) sec INR (<1.2) APTT (22.0-30.0) sec Sodium (137-145) mmol/L Potassium (3.5-5.1) mmol/L Chloride (98-107) mmol/L Carbon Dioxide (22-30) mmol/L Anion Gap mmol/L BUN (9-20) mg/dL Creatinine (0.66-1.25) mg/dL Est GFR (CKD-EPI)AfAm (>60 ml/min/1.73 sqM) Est GFR (CKD-EPI)NonAf (>60 ml/min/1.73 sqM) Glucose (74-99) mg/dL Plasma Lactic Acid Stanley 2.2 H* (0.7-2.0) mmol/L Calcium (8.4-10.2) mg/dL Magnesium (1.6-2.3) mg/dL Total Bilirubin (0.2-1.3) mg/dL AST (17-59) U/L ALT (4-49) U/L Alkaline Phosphatase (38-126) U/L Troponin I 0.495 H* (0.000-0.034) ng/mL NT-Pro-B Natriuret Pep pg/mL Total Protein (6.3-8.2) g/dL Albumin (3.5-5.0) g/dL TSH (0.465-4.680) mIU/L Free T4 (0.78-2.19) ng/dL Critical Care Time Critical Care Time: Yes Total Critical Care Time: 31 Disposition Clinical Impression: NSTEMI (non-ST elevated myocardial infarction), CHF (congestive heart failure) Disposition: ADMITTED IP TO THIS [facility] Condition: Serious Is patient prescribed a controlled substance at d/c from ED?: No Referrals: Mojgan Acosta MD [Primary Care Provider] - 1-2 days Time of Disposition: 11:20
[2025-02-21 10:07] LABS: Basophils # (A) 0.02 10*3/uL (0.00-0.10); Basophils % (A) 0.4 %; HCT 40.4 % (39.6-50.0); Lymphocytes # (A) 0.58 10*3/uL (0.90-5.00); Lymphocytes % (A) 11.1 %; MCHC 34.7 g/dL (32.0-37.0); MCV 95.3 fL (80.0-97.0); Mean Platelet Volume 11.4 fL (9.5-12.2); Monocytes % (A) 11.5 %; Neutrophils % (A) 76.6 %; Platelet Count 156 10*3/uL (140-440); RBC 4.24 10*6/uL (4.40-5.60); RDW 12.2 % (11.5-14.5); WBC 5.22 10*3/uL (4.50-10.00)
[2025-02-21 10:23] LABS: ALT 62 U/L (4-49); AST 233 U/L (17-59); African American GFR (CKD) 65 (>60 ml/min/1.73 sqM); Albumin 4.2 g/dL (3.5-5.0); Alkaline Phosphatase 64 U/L (38-126); Anion Gap 15 mmol/L; Blood Urea Nitrogen 36 mg/dL (9-20); Carbon Dioxide 22 mmol/L (22-30); Chloride 101 mmol/L (98-107); Glucose 139 mg/dL (74-99); Magnesium 1.9 mg/dL (1.6-2.3); Non-African American GFR(CKD) 56 (>60 ml/min/1.73 sqM); Potassium 3.4 mmol/L (3.5-5.1); Sodium 138 mmol/L (137-145); Total Protein 6.8 g/dL (6.3-8.2)
[2025-02-21 10:31] LABS: NT-Pro-B-Type Natriuretic Pept 18600 pg/mL
--- NOTE | 2025-02-21 10:37 | XR ---
EXAMINATION TYPE: XR chest 2V DATE OF EXAM: 02/21/2025 10:34 AM COMPARISON: Chest radiographs from 07/16/2023 CLINICAL INDICATION: Male, 79 years old with history of Weakness; [facility] TECHNIQUE: XR chest 2V Frontal and lateral views of the chest. FINDINGS: Lungs/Pleura: There is no evidence of pleural effusion, focal consolidation, or pneumothorax. Pulmonary vascularity: Unremarkable. Heart/mediastinum: Cardiomediastinal silhouette is unremarkable. Two lead cardiac conduction device o verlying the left hemithorax with lead tips projecting over the right ventricle and right atrium. Musculoskeletal: No acute osseous pathology. IMPRESSION: Low lung volumes with a generalized hazy appearance which could represent atelectasis versus pulmonar y edema correlate with serum BNP. [facility], , 02/21/2025 10:35 AM
[2025-02-21 10:39] LABS: T4, Free (Free Thyroxine) 1.57 ng/dL (0.78-2.19)
--- NOTE | 2025-02-21 10:40 | CT ---
EXAMINATION TYPE: CT brain wo con DATE OF EXAM: 02/21/2025 10:31 AM COMPARISON: 02/25/2020.. CLINICAL INDICATION: Male, 79 years old with history of weakness, WEAKNESS TECHNIQUE: Brain: Axial CT images of the brain were obtained with coronal and sagittal reformats created and rev iewed. Contrast used: None. Oral contrast used: None. CT DLP: 1229.7 mGycm, Automated exposure control for dose reduction was used. FINDINGS: Brain: Extra-axial spaces: No abnormal extra-axial fluid collections. Ventricular system: Dilatation in proportion to cerebral atrophy. Cerebral parenchyma: Cerebral atrophy. No acute intraparenchymal hemorrhage or mass effect. The disla -white junction is well differentiated. Scattered hypoattenuating areas are seen within the white mat ter. Cerebellum: Unremarkable. Mass effect: No evidence of midline shift. Intracranial vasculature: Atherosclerotic calcifications of the intracranial vessels. Soft tissues: Normal. Calvarium/osseous structures: No depressed skull fracture. Paranasal sinuses and mastoid air cells: Mild scattered paranasal sinus disease. Visualized orbits: Bilateral aphakia IMPRESSION: 1. No acute intracranial process. 2. Nonspecific white matter changes, likely secondary to chronic small vessel ischemic disease. [facility], , 02/21/2025 10:37 AM
[2025-02-21 10:46] LABS: Partial Thromboplastin Time 22.1 sec (22.0-30.0); Prothrombin Time 11.1 sec (10.0-12.5)
[2025-02-21] MEDS: DILTIAZEM 125 MG in DEXTROSE 5% IN WATER 100 ML IV SCH (10:48)
[2025-02-21] MEDS ORDERED: NITROGLYCERIN SL TABS 0.4 MG TAB SUBLINGUAL PRN (11:20)
--- NOTE | 2025-02-21 11:41 | P.HPIM ---
History of Present Illness H&P Date: 02/21/25 History of Presenting Illness: Patient is a very pleasant 79-year-old male with a past medical history of CAD, history of complete heart block status post biventricular pacemaker placement, chronic systolic heart failure with previously known EF of 45% paroxysmal atrial fibrillation, hypertension, hyperlipidemia, [id number] diabetes mellitus, CVA, and prostate cancer status post prostatectomy. He presented to the emergency department with a chief complaint of generalized weakness. Patient reports undergoing L5-S1 epidural injection for treatment of back pain with right-sided sciatica on Saturday. Patient reports injection resulted in imp rovement of lower back pain and sciatica but states Saturday evening he began experiencing recurrent episodes of loose watery diarrhea and decreased oral intake. Reports on Saturday he went to the restroom and felt very weak and lied down on the bathroom floor but was unable to get back up for multiple hours. Patient reports he pressed his alert button and his daughter came and tried to get him to come to the hospital but he refused. After being helped up patient's daughter reports that he ambulated with walker back to his bed and adamantly refused being evaluated at the hospital. 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 Patient states he was much more comfortable sleeping in his own bed in his own home. Patient reports he continued to have diarrhea and decreased oral intake and was again too weak to make it to the restroom and he lied down on the floor. Patient's daughter reports upon arrival this morning to check on him he was lying in his bedroom floor with diarrhea. EMS was called for transport to the hospital. Patient states he does not feel dizzy or lightheaded just generally weak and states his legs were just too weak to hold him up. He denies hitting his head or having any loss of consciousness. He reports only pain is to left knee when his legs gave out from weakness and falling onto his left knee. Patient denies weakness greater on either side sta baltazar it is just general weakness in both legs. He denies having any dizziness, lightheadedness, changes in vision or hearing, chest pain, palpitations, shortness of breath, cough or congestion, abdominal pain or discomfort, nausea, vomiting, or experiencing any focal numbness or tingling. Patient reports bilateral lower extremity edema unchanged from baseline and actually looks a little better today than it has been over the past week. Patient reports following with marina porter, Dr. Ragland. States he was off of his Eliquis for a week due to recent epidural injection. Upon arrival to our facility, patient underwent evaluation in the emergency department vital signs upon arrival show blood pressure 124/82, heart rate 125, respiratory rate 18,. Temp 97.9 F, SpO2 100% on room air. EKG completed showing sinus tachycardia at a paced ventricular rhythm each beat at 126 bpm. Chest x-ray showing low lung volumes with generalized hazy appearance concerning for pulmonary edema. Labs completed and reviewed. CBC showing elevated MCH of 33.0. Coagulation profile normal findings. BMP showing mild hypokalemia with potassium of 3.4 and prerenal azotemia with BUN of 36, creatinine 1.22, GFR 56. Blood glucose was 139. Initial lactic acid was 2.2. Liver profile showing elevated AST of 233, ALT of 62, and alkaline phosphatase of 64. Troponin was elevated at 0.495. proBNP was 18,600. TSH normal findings at 3.310. Urinalysis positive for protein, ketones and blood negative for infection. CT brain negative for acute intracranial process showing nonspecific white matter changes. Repeat EKG completed again showing ventricular paced rhythm now with controlled rate of 70 bpm with underlying atrial fibrillation present. Patient given aspirin 325 mg p.o. x 1 dose, started on low intensity heparin infusion and admitted under services with consultation to cardiology. Creatinine kinase resulting at 11,988. Review of systems: Pertinent positives and negatives as discussed in HPI, a complete review of systems was performed and all other systems are negative. Physical exam: Vital signs reviewed and stable. General: Nontoxic, no distress and appears stated age. Derm: Skin warm and dry, normal coloration for ethnicity. Head: Atraumatic, normocephalic and symmetric. Eyes: EOM's intact, no lid lag, and anicteric sclera Mouth: no lip lesions, mucus membranes moist Cardiovascular: Irregularly irregular, soft systolic murmur, positive posterior tibial pulses bilaterally, and cap refill < 2 seconds. Lungs: Respirations even, regular, and unlabored on room air. Lungs diminished, no rhonchi, no rales, no wheezing, and no accessory muscle usage. Abdominal: soft, nontender to palpation, no guarding, no appreciable organomegaly Ext: ROM intact. No gross muscle atrophy, 1+BLE pitting edema, no contractures Neuro: Speech clear, face symmetrical and CN II-XII grossly intact with no noted focal neuro deficits Psych: Alert and oriented to person, place, time, and situation. Appropriate and pleasant affect. Assessment and Plan of Care: NSTEMI Acute Rhabdomyolysis Generalized weakness with reports of intractable diarrhea x 3 days Chronic systolic heart failure Third-degree heart block status post biventricular pacemaker placement History of CAD Paroxysmal Atrial Fibrillation Hypertension Hyperlipidemia -Cardiology consulted, appreciate recommendations -Telemetry monitoring -Continue low intensity heparin infusion with close monitoring of PTT every 6 hours for goal therapeutic range of 45 to 79 seconds. -Trend troponins -Aspirin 81 mg daily, atorvastatin 40 mg daily, Coreg 12.5 mg twice daily, and lisinopril 40 mg daily. -Hold Lasix and administer 500 cc bolus followed by 0.9% NS at 100 cc/hour. -Obtain stool culture and C. difficile PCR -Lipid profile and hemoglobin A1c with a.m. labs. -Echocardiogram Lhi-jnqshud-dmoduabdm diabetes mellitus --Hold metformin and place patient on glycemic protocol with Humalog sliding scale.d History of CVA -Continue aspirin 81 mg daily and atorvastatin 40 mg daily. History of prostate cancer - Patient is status post prostatectomy. Data and imaging reviewed: As stated above in HPI The patient is admitted with an anticipated greater than 2 midnight stay for evaluation of Acute Rhabdomyolysis and NSTEMI CODE STATUS: Full code DVT prophylaxis: Heparin infusion Discussed with: Patient, patient's daughter at bedside, and ED physician Anticipated discharge date: Pending Clinical course Anticipated discharge place: Home Patient was seen independently by Nurse Practitioner. This document was prepared using [employer] dictation software. Please allow for errors in neurology professor while rare they do occur. Lavon Schulte NP rendered care for this patient independently, reviewed the findings and plan as documented in the note above and agree with plan. I did not physically speak with or examine the patient on this date. Past Medical History Past Medical History: Atrial Fibrillation, Coronary Artery Disease (CAD), Cancer, CVA/TIA, Diabetes Mellitus, Hyperlipidemia, Hypertension, Osteoarthritis (OA), Prostate Disorder Additional Past Medical History / Comment(s): PROSTATE CANCER, KIDNEY STONE, A fib History of Any Multi-Drug Resistant Organisms: None Reported Past Surgical History: Adenoidectomy, Back Surgery, Orthopedic Surgery, Tonsillectomy Additional Past Surgical History / Comment(s): PROSTATE SURGERY, LEFT KNEE ARTHROSCOPIC, PPM, COLONOSCOPY, PAIN CLINIC PROCEDURE Past Anesthesia/Blood Transfusion Reactions: No Reported Reaction Additional Past Anesthesia/Blood Transfusion Reaction / Comment(s): no hx blood transfusion Type of Cardiac Device: Biventricular Pacemaker Device Placement Date:: left chest 2021 Past Psychological History: No Psychological Hx Reported Smoking Status: Current some day smoker, Light tobacco smoker Past Alcohol Use History: Daily Past Drug Use History: None Reported - Past Family History Mother Family Medical History: No Reported History Medications and Allergies Home Medications Medication Instructions Recorded Confirmed Type allopurinoL [Zyloprim] 100 mg PO DAILY 05/23/16 02/21/25 History metFORMIN HCL ER [Glucophage XR] 1,000 mg PO BID 06/22/22 02/21/25 History Atorvastatin [Lipitor] 40 mg PO DAILY #30 tab 06/27/22 02/21/25 Rx Apixaban [Eliquis] 5 mg PO BID 07/10/23 02/21/25 History Chlorthalidone [Hygroton] 25 mg PO DAILY 07/10/23 02/21/25 History Ibuprofen [Motrin Ib] 400 mg PO BID PRN 02/27/24 02/21/25 History DULoxetine HCL [Cymbalta] 60 mg PO DAILY 12/07/24 02/21/25 History Furosemide [Lasix] 20 mg PO DAILY 12/07/24 02/21/25 History Multivitamins, Thera [Multivitamin 1 tab PO DAILY 02/21/25 02/21/25 History (formulary)] Pioglitazone [Actos] 30 mg PO DAILY 02/21/25 02/21/25 History Pregabalin [Lyrica] 50 mg PO BID 02/21/25 02/21/25 History carvediloL [Coreg*] 12.5 mg PO BID 02/21/25 02/21/25 History lisinopriL 40 mg PO DAILY 02/21/25 02/21/25 History Allergies Allergy/AdvReac Type Severity Reaction Status Date / Time levofloxacin [From Levaquin] Allergy Dyspnea Verified 02/21/25 12:47 mefloquine HCl [From Lariam] Allergy NIGHTMARES Verified 02/21/25 12:47 ofloxacin [From Floxin] Allergy JOINT PAIN Verified 02/21/25 12:47 SAMI PEPPERS Allergy Dyspnea,STR Uncoded 02/21/25 12:47 IDOR Physical Exam Vitals: Vital Signs Temp Pulse Resp BP Pulse Ox 02/21/25 10:51 70 18 150/79 98 02/21/25 09:44 97.9 F 125 H 18 124/82 100 Intake and Output 02/20/25 02/21/25 02/21/25 22:59 06:59 14:59 Other: Weight 86.183 kg Results CBC & Chem 7: 02/21/25 09:59 02/21/25 09:59 Labs: Abnormal Lab Results - Last 24 Hours (Table) 02/21/25 02/21/25 02/21/25 Range/Units 09:59 09:59 09:59 RBC 4.24 L (4.40-5.60) 10*6/uL MCH 33.0 H (27.0-32.0) pg Lymphocytes # 0.58 L (0.90-5.00) 10*3/uL Eosinophils # 0.00 L (0.04-0.35) 10*3/uL Potassium 3.4 L (3.5-5.1) mmol/L BUN 36 H (9-20) mg/dL Glucose 139 H (74-99) mg/dL Plasma Lactic Acid Stanley 2.2 H* (0.7-2.0) mmol/L AST 233 H (17-59) U/L ALT 62 H (4-49) U/L Troponin I (0.000-0.034) ng/mL 02/21/25 Range/Units 09:59 RBC (4.40-5.60) 10*6/uL MCH (27.0-32.0) pg Lymphocytes # (0.90-5.00) 10*3/uL Eosinophils # (0.04-0.35) 10*3/uL Potassium (3.5-5.1) mmol/L BUN (9-20) mg/dL Glucose (74-99) mg/dL Plasma Lactic Acid Stanley (0.7-2.0) mmol/L AST (17-59) U/L ALT (4-49) U/L Troponin I 0.495 H* (0.000-0.034) ng/mL
[2025-02-21] MEDS: HEPARIN SOD,PORK IN 0.45% NACL 25,000 UNIT in 0.45% NACL 1 250ML.BAG IV SCH (12:05)
[2025-02-21] MEDS: HEPARIN SODIUM 1,000 UN/ML (10ML VL) IV ONE (12:05)
[2025-02-21] MEDS: FUROSEMIDE 10 MG/ML 4 ML VIAL IV SCH (12:06)
[2025-02-21] MEDS: ASPIRIN 81 MG PO STA (12:06)
[2025-02-21] MEDS: ATORVASTATIN 40 MG TAB PO SCH (12:07)
[2025-02-21 12:12] LABS: Appearance,Urine Clear (Clear); Bacteria,Urine Rare /hpf; Bilirubin,Urine Negative (Negative); Blood,Urine Large (Negative); Color,Urine Light Yellow; Glucose,Urine (UA) Negative (Negative); Hyaline Casts,Urine 4 /lpf (0-2); Ketones,Urine 1+ (Negative); Leukocyte Esterase,Urine Negative (Negative); Mucus,Urine Rare /hpf; Nitrite,Urine Negative (Negative); PH, Urine 5.5 (5.0-8.0); Protein,Urine 1+ (Negative); RBC,Urine <1 /hpf (0-5); Specific Gravity,Urine 1.016 (1.001-1.035); Urobilinogen,Urine <2.0 mg/dL (<2.0); WBC,Urine <1 /hpf (0-5)
--- NOTE | 2025-02-21 12:42 | XR ---
EXAMINATION TYPE: XR knee complete LT DATE OF EXAM: 02/21/2025 12:32 PM COMPARISON: None CLINICAL INDICATION: Male, 79 years old with history of fall; PHH, pain TECHNIQUE: XR knee complete LT 3 views submitted. FINDINGS: No evidence of any acute osseous pathology, soft tissue swelling, or joint effusion is no stephon. Tricompartmental osteophyte formation involving the femoral condyles, tibial plateau and patella . Mild joint space narrowing. Atherosclerosis of the arterial vasculature. IMPRESSION: 1. No acute osseous pathology. 2. Moderate tricompartmental osteoarthritic changes. [facility], , 02/21/2025 12:40 PM
[2025-02-21 16:27] LABS: Glucose,Whole Blood 188 mg/dL (70-110)
[2025-02-21] MEDS ORDERED: DEXTROSE 50% SYRINGE 50 ML IVP PRN ×2 (16:43)
--- NOTE | 2025-02-21 16:52 | P.CRDCN ---
History of Present Illness Consult date: 02/21/25 History of present illness: HISTORY OF PRESENTING ILLNESS: Patient is a 79-year-old male known to Dr. Corrales. He has prior history of CAD, complete heart block status post PPM, systolic heart failure EF 45%, paroxysmal atrial fibrillation, hypertension dyslipidemia type 2 diabetes, CVA and prostate cancer. He presented to the hospital because of generalized weakness following his recent spinal epidural injection. He is also been having increased watery loose stools and he has been having very poor oral intake. Patient daughter found that patient was lying on the floor with diarrhea bowel movement on Saturday which prompted bringing the patient to the hospital. Denies any symptoms of chest pain chest pressure however he appears to be a poor historian at this t yoselyn. Mild encephalopathy. Admission EKG showed atrial fibrillation with RVR with paced rhythm, repeat EKG shows sinus rhythm with ventricularly paced rhythm biventricular Chest x-ray shows mild haziness but no significant signs of consolidation or congestion CT head did not show any signs of an acute intracranial process Labs shows troponin elevation of 0.4 with a flat pattern, NT-proBNP is 18,000, lactate is 2.2, CPK is elevated, creatinine 1.2 REVIEW OF SYSTEMS: 14 point review of system is negative except what is mentioned above in HPI. PHYSICAL EXAMINATION: Neck: Brisk carotid upstroke, no jugular venous distention. Lungs: Clear to auscultation. Heart: Regular rate and rhythm, S1-S2, , no murmur or rub. Abdomen: Soft nontender, positive bowel sounds. Extremities: No edema, intact distal pulses. Neuro: Alert, oritented, no focal deficits. Detailed neuro exam was not performed. ASSESSMENT: # Mild metabolic encephalopathy likely from dehydration # Dehydration from poor oral intake and diarrhea # Rhabdomyolysis # Elevated troponin likely due to rhabdomyolysis. Less likely ACS # A-fib RVR on admission, prior history of paroxysmal A-fib # History of biventricular PPM for complete heart block PLAN: Continue aspirin, Lipitor, Coreg 12.5 mg twice daily, lisinopril 40 mg daily Discontinue IV heparin drip Obtain updated echo Resume Eliquis Avoid diuretics IV hydration Monitor hemodynamics, kidney function electrolytes and urine output. Andrzej Roth MD, FACC, RPVI Thank you for allowing [facility] to participate in this patient's care. Feel free to reach out in case of any followup questions. Past Medical History Past Medical History: Atrial Fibrillation, Coronary Artery Disease (CAD), Cancer, CVA/TIA, Diabetes Mellitus, Hyperlipidemia, Hypertension, Osteoarthritis (OA), Prostate Disorder Additional Past Medical History / Comment(s): PROSTATE CANCER, KIDNEY STONE, A fib History of Any Multi-Drug Resistant Organisms: None Reported Past Surgical History: Adenoidectomy, Back Surgery, Orthopedic Surgery, Tonsillectomy Additional Past Surgical History / Comment(s): PROSTATE SURGERY, LEFT KNEE ARTH ROSCOPIC, PPM, COLONOSCOPY, PAIN CLINIC PROCEDURE Past Anesthesia/Blood Transfusion Reactions: No Reported Reaction Additional Past Anesthesia/Blood Transfusion Reaction / Comment(s): no hx blood transfusion Type of Cardiac Device: Biventricular Pacemaker Device Placement Date:: left chest 2021 Past Psychological History: No Psychological Hx Reported Smoking Status: Current some day smoker, Light tobacco smoker Past Alcohol Use History: Daily Past Drug Use History: None Reported - Past Family History Mother Family Medical History: No Reported History Medications and Allergies Home Medications Medication Instructions Recorded Confirmed Type allopurinoL [Zyloprim] 100 mg PO DAILY 05/23/16 02/21/25 History metFORMIN HCL ER [Glucophage XR] 1,000 mg PO BID 06/22/22 02/21/25 History Atorvastatin [Lipitor] 40 mg PO DAILY #30 tab 06/27/22 02/21/25 Rx Apixaban [Eliquis] 5 mg PO BID 07/10/23 02/21/25 History Chlorthalidone [Hygroton] 25 mg PO DAILY 07/10/23 02/21/25 History Ibuprofen [Motrin Ib] 400 mg PO BID PRN 02/27/24 02/21/25 History DULoxetine HCL [Cymbalta] 60 mg PO DAILY 12/07/24 02/21/25 History Furosemide [Lasix] 20 mg PO DAILY 12/07/24 02/21/25 History Multivitamins, Thera [Multivitamin 1 tab PO DAILY 02/21/25 02/21/25 History (formulary)] Pioglitazone [Actos] 30 mg PO DAILY 02/21/25 02/21/25 History Pregabalin [Lyrica] 50 mg PO BID 02/21/25 02/21/25 History carvediloL [Coreg*] 12.5 mg PO BID 02/21/25 02/21/25 History lisinopriL 40 mg PO DAILY 02/21/25 02/21/25 History Allergies Allergy/AdvReac Type Severity Reaction Status Date / Time levofloxacin [From Levaquin] Allergy Dyspnea Verified 02/21/25 12:47 mefloquine HCl [From Lariam] Allergy NIGHTMARES Verified 02/21/25 12:47 ofloxacin [From Floxin] Allergy JOINT PAIN Verified 02/21/25 12:47 BOTSWANAN PEPPERS Allergy Dyspnea,STR Uncoded 02/21/25 12:47 IDOR Physical Exam Vitals: Vital Signs Temp Pulse Pulse Resp BP BP Pulse Ox 02/21/25 16:00 65 137/65 97 02/21/25 12:40 97.7 F 70 20 126/63 98 02/21/25 12:19 69 20 132/66 99 02/21/25 10:51 70 18 150/79 98 02/21/25 09:44 97.9 F 125 H 18 124/82 100 Intake and Output 02/21/25 02/21/25 02/21/25 06:59 14:59 22:59 Other: Voiding Method Urinal Weight 86.183 kg Results 02/21/25 09:59 02/21/25 09:59 Cardiac Enzymes 02/21/25 02/21/25 02/21/25 Range/Units 09:59 09:59 12:34 AST 233 H (17-59) U/L Troponin I 0.495 H* 0.486 H* (0.000-0.034) ng/mL 02/21/25 Range/Units 14:59 AST (17-59) U/L Troponin I 0.405 H* (0.000-0.034) ng/mL Coagulation 02/21/25 02/21/25 Range/Units 09:59 12:34 PT 11.1 (10.0-12.5) sec APTT 22.1 51.9 H (22.0-30.0) sec CBC 02/21/25 Range/Units 09:59 WBC 5.22 (4.50-10.00) 10*3/uL RBC 4.24 L (4.40-5.60) 10*6/uL Hgb 14.0 (13.0-17.0) g/dL Hct 40.4 (39.6-50.0) % Plt Count 156 (140-440) 10*3/uL Comprehensive Metabolic Panel 02/21/25 Range/Units 09:59 Sodium 138 (137-145) mmol/L Potassium 3.4 L (3.5-5.1) mmol/L Chloride 101 (98-107) mmol/L Carbon Dioxide 22 (22-30) mmol/L BUN 36 H (9-20) mg/dL Creatinine 1.22 (0.66-1.25) mg/dL Glucose 139 H (74-99) mg/dL Calcium 10.0 (8.4-10.2) mg/dL AST 233 H (17-59) U/L ALT 62 H (4-49) U/L Alkaline Phosphatase 64 (38-126) U/L Total Protein 6.8 (6.3-8.2) g/dL Albumin 4.2 (3.5-5.0) g/dL Current Medications Generic Name Dose Route Start Last Admin Trade Name Freq PRN Reason Stop Dose Admin Apixaban 5 mg 02/21/25 21:00 Apixaban 5 Mg Tab PO BID [facility] Protocol Aspirin 81 mg 02/22/25 09:00 Aspirin 81 Mg PO DAILY [facility] Atorvastatin Calcium 40 mg 02/21/25 11:45 02/21/25 12:07 Atorvastatin 40 Mg Tab PO 40 mg DAILY [facility] Administration Carvedilol 12.5 mg 02/21/25 17:30 Carvedilol 12.5 Mg Tab PO BID-W/MEALS [facility] Dextrose/Water 25 ml 02/21/25 16:43 Dextrose 50% Syringe 50 Ml IVP PER PROTOCOL PRN Hypoglycemia Protocol Dextrose/Water 50 ml 02/21/25 16:43 Dextrose 50% Syringe 50 Ml IVP PER PROTOCOL PRN Hypoglycemia Protocol Duloxetine HCl 60 mg 02/22/25 09:00 Duloxetine Hcl 60 Mg Capsule.Dr PO DAILY [facility] Sodium Chloride 1,000 mls @ 100 mls/hr 02/21/25 17:00 Saline 0.9% IV .Q10H [facility] Sodium Chloride 500 mls @ 999 mls/hr 02/21/25 16:47 Saline 0.9% IV 02/21/25 17:17 .Q31M ONE Insulin Human Lispro 0 unit 02/21/25 17:30 Insulin Lispro (Humalog) 100 Unit/Ml 10 Ml Vl SQ ACHS [facility] Protocol Lisinopril 40 mg 02/22/25 09:00 Lisinopril 20 Mg Tab PO DAILY [facility] Multivitamins 1 each 02/22/25 09:00 Multivitamins, Thera 1 Each Tab PO DAILY [facility] Nitroglycerin 0.4 mg 02/21/25 11:20 Nitroglycerin Sl Tabs 0.4 Mg Tab SUBLINGUAL Q5M PRN Chest Pain Pregabalin 50 mg 02/21/25 21:00 Pregabalin 50 Mg Cap PO BID [facility] Intake and Output 02/21/25 02/21/25 02/21/25 06:59 14:59 22:59 Other: Voiding Method Urinal Weight 86.183 kg Patient Weight 02/22/25 06:59 Weight 86.183 kg 02/21/25 09:59 02/21/25 09:59
[2025-02-21] MEDS: INSULIN LISPRO (HumaLOG) 100 UNIT/ML 10 mL VL SQ SCH (17:49)
[2025-02-21] MEDS: carvediloL 12.5 MG TAB PO SCH (17:49)
[2025-02-21] MEDS: SODIUM CHLORIDE 0.9% 500 ML 500 ML IV ONE (17:49)
[2025-02-21 20:37] LABS: Glucose,Whole Blood 202 mg/dL (70-110)
[2025-02-21] MEDS: APIXABAN 5 MG TAB PO SCH (21:17)
[2025-02-21] MEDS: SODIUM CHLORIDE 0.9% 1,000 ML IV SCH (21:17)
[2025-02-21] MEDS: PREGABALIN 50 MG CAP PO SCH (21:17)
[2025-02-22] MEDS: IBUPROFEN 600 MG TAB PO STA (04:34)
[2025-02-22] MEDS: PANTOPRAZOLE 40 MG TABLET PO SCH (04:35)
[2025-02-22 06:04] LABS: Glucose,Whole Blood 171 mg/dL (70-110)
[2025-02-22 06:52] LABS: Mean Platelet Volume 11.5 fL (9.5-12.2); Platelet Count 159 10*3/uL (140-440)
[2025-02-22] MEDS: lisinopriL 20 MG TAB PO SCH (08:44)
[2025-02-22] MEDS: ASPIRIN 81 MG PO SCH (08:45)
[2025-02-22] MEDS: DULoxetine HCL 60 MG CAPSULE.DR PO SCH (08:45)
[2025-02-22] MEDS: MULTIVITAMINS, THERA 1 EACH TAB PO SCH (08:45)
[2025-02-22] MEDS ORDERED: CHLORTHALIDONE 25 MG TAB PO SCH (09:00)
[2025-02-22] MEDS ORDERED: FUROSEMIDE 10 MG/ML 4 ML VIAL IV SCH (09:00)
[2025-02-22] MEDS ORDERED: ASPIRIN 325 MG TAB PO SCH (09:00)
[2025-02-22 10:25] LABS: HCT 41.2 % (39.6-50.0); HGB 13.4 g/dL (13.0-17.0); MCH 31.8 pg (27.0-32.0); MCHC 32.5 g/dL (32.0-37.0); MCV 97.9 fL (80.0-97.0); Mean Platelet Volume 11.5 fL (9.5-12.2); Platelet Count 173 10*3/uL (140-440); RBC 4.21 10*6/uL (4.40-5.60); RDW 12.5 % (11.5-14.5); WBC 5.23 10*3/uL (4.50-10.00)
[2025-02-22 10:33] LABS: Chol/HDL Ratio 2.54 Ratio; LDL Cholesterol,Calculated 62.7 mg/dL (0.0-131.0)
--- NOTE | 2025-02-22 10:37 | P.PN ---
Subjective HISTORY OF PRESENT ILLNESS: Patient is a 79-year-old male known to Dr. Corrales. He has prior history of CAD, complete heart block status post PPM, systolic heart failure EF 45%, paroxysmal atrial fibrillation, hypertension dyslipidemia type 2 diabetes, CVA and prostate cancer. He presented to the hospital because of generalized weakness following his recent spinal epidural injection. He is also been having increased watery loose stools and he has been having very poor oral intake. Patient daughter found that patient was lying on the floor with diarrhea bowel movement on Saturday which prompted bringing the patient to the hospital. Denies any symptoms of chest pain chest pressure however he appears to be a poor historian at this time. Mild encephalopathy. Admission EKG showed atrial fibrillation with RVR with paced rhythm, repeat EKG shows sinus rhythm with ventricularly paced rhythm biventricular Chest x-ray shows mild haziness but no significant signs of consolidation or congestion CT head did not show any signs of an acute intracranial process Labs shows troponin elevation of 0.4 with a flat pattern, NT-proBNP is 18,000, lactate is 2.2, CPK is elevated, creatinine 1.2 02/22/2025 Patient examined this morning at the bedside. Patient currently denies chest pain or pressure. He denies shortness of breath. Vital signs are stable. PHYSICAL EXAM: VITAL SIGNS: Reviewed. GENERAL: Well-developed in no acute distress. NECK: Supple. No JVD or thyromegaly LUNGS: Respirations even and unlabored. Lungs essentially clear to auscultation bilaterally. HEART: Regular rate and rhythm. S1 and S2 heard. EXTREMITIES: Normal range of motion. No clubbing or cyanosis. Peripheral pulses intact. No lower extremity edema ASSESSMENT: # Mild metabolic encephalopathy likely from dehydration # Dehydration from poor oral intake and diarrhea # Rhabdomyolysis # Elevated troponin likely due to rhabdomyolysis, no evidence of myocardial injury or ischemia # A-fib RVR on admission, prior history of paroxysmal A-fib # History of biventricular PPM for complete heart block PLAN: 2D echo ordered. Await results. Continue aspirin, Eliquis, Lipitor, carvedilol, lisinopril Patient is stable for discharge home today from a cardiac standpoint pending echo results Patient to follow-up postdischarge in the office with Dr. Ragland Nurse practitioner note has been reviewed by physician. Signing provider agrees with the documented findings, assessment, and plan of care documented by OIL SPECULATOR as a scribe. Objective - Vital Signs Vital signs: Vital Signs Temp 97.9 F 02/22/25 08:00 Pulse 69 02/22/25 04:15 Resp 16 02/22/25 08:00 BP 130/70 02/22/25 08:00 Pulse Ox 93 L 02/22/25 08:00 FiO2 Intake & Output 02/21/25 02/22/25 02/22/25 18:59 06:59 18:59 Intake Total 209.5 240 Balance 209.5 240 Weight 86.183 kg Intake: Intake, IV Titration 59.5 Amount Heparin Sod,Pork in 0.45% 59.5 NaCl 25,000 unit In 0.45 % NaCl 1 250ml.bag @ 11. 603 UNITS/KG/HR 10 mls/hr IV .Q24H [facility] Rx#: [id number] Oral 150 240 Other: Voiding Method Urinal Urinal # Voids 1 # Bowel Movements 1 - Labs CBC & Chem 7: 02/22/25 10:10 02/21/25 09:59 Labs: Abnormal Lab Results - Last 24 Hours (Table) 02/21/25 02/21/25 02/21/25 Range/Units 09:59 09:59 12:01 RBC (4.40-5.60) 10*6/uL MCV (80.0-97.0) fL APTT (22.0-30.0) sec POC Glucose (mg/dL) (70-110) mg/dL Hemoglobin A1c (<=6.0) % Plasma Lactic Acid Stanley 2.2 H* (0.7-2.0) mmol/L Creatine Kinase (55-170) U/L Troponin I 0.495 H* (0.000-0.034) ng/mL Urine Protein 1+ H (Negative) Urine Ketones 1+ H (Negative) Urine Blood Large H (Negative) Urine Bacteria Rare H (None) /hpf Hyaline Casts 4 H (0-2) /lpf Urine Mucus Rare H (None) /hpf 02/21/25 02/21/25 02/21/25 Range/Units 12:34 12:34 14:59 RBC (4.40-5.60) 10*6/uL MCV (80.0-97.0) fL APTT 51.9 H (22.0-30.0) sec POC Glucose (mg/dL) (70-110) mg/dL Hemoglobin A1c (<=6.0) % Plasma Lactic Acid Stanley (0.7-2.0) mmol/L Creatine Kinase (55-170) U/L Troponin I 0.486 H* 0.405 H* (0.000-0.034) ng/mL Urine Protein (Negative) Urine Ketones (Negative) Urine Blood (Negative) Urine Bacteria (None) /hpf Hyaline Casts (0-2) /lpf Urine Mucus (None) /hpf 02/21/25 02/21/25 02/21/25 Range/Units 14:59 16:26 17:04 RBC (4.40-5.60) 10*6/uL MCV (80.0-97.0) fL APTT 31.9 H (22.0-30.0) sec POC Glucose (mg/dL) 188 H (70-110) mg/dL Hemoglobin A1c (<=6.0) % Plasma Lactic Acid Stanley (0.7-2.0) mmol/L Creatine Kinase 72656 H* (55-170) U/L Troponin I (0.000-0.034) ng/mL Urine Protein (Negative) Urine Ketones (Negative) Urine Blood (Negative) Urine Bacteria (None) /hpf Hyaline Casts (0-2) /lpf Urine Mucus (None) /hpf 02/21/25 02/22/25 02/22/25 Range/Units 20:35 06:04 06:10 RBC (4.40-5.60) 10*6/uL MCV (80.0-97.0) fL APTT (22.0-30.0) sec POC Glucose (mg/dL) 202 H 171 H (70-110) mg/dL Hemoglobin A1c 8.0 H (<=6.0) % Plasma Lactic Acid Stanley (0.7-2.0) mmol/L Creatine Kinase (55-170) U/L Troponin I (0.000-0.034) ng/mL Urine Protein (Negative) Urine Ketones (Negative) Urine Blood (Negative) Urine Bacteria (None) /hpf Hyaline Casts (0-2) /lpf Urine Mucus (None) /hpf 02/22/25 Range/Units 10:10 RBC 4.21 L (4.40-5.60) 10*6/uL MCV 97.9 H (80.0-97.0) fL APTT (22.0-30.0) sec POC Glucose (mg/dL) (70-110) mg/dL Hemoglobin A1c (<=6.0) % Plasma Lactic Acid Stanley (0.7-2.0) mmol/L Creatine Kinase (55-170) U/L Troponin I (0.000-0.034) ng/mL Urine Protein (Negative) Urine Ketones (Negative) Urine Blood (Negative) Urine Bacteria (None) /hpf Hyaline Casts (0-2) /lpf Urine Mucus (None) /hpf
[2025-02-22 10:41] LABS: ALT 72 U/L (4-49); AST 199 U/L (17-59); African American GFR (CKD) 54 (>60 ml/min/1.73 sqM); Albumin 3.7 g/dL (3.5-5.0); Alkaline Phosphatase 58 U/L (38-126); Anion Gap 9 mmol/L; Blood Urea Nitrogen 35 mg/dL (9-20); Calcium 9.5 mg/dL (8.4-10.2); Carbon Dioxide 28 mmol/L (22-30); Chloride 103 mmol/L (98-107); Glucose 221 mg/dL (74-99); Magnesium 1.9 mg/dL (1.6-2.3); Non-African American GFR(CKD) 47 (>60 ml/min/1.73 sqM); Potassium 3.4 mmol/L (3.5-5.1); Sodium 140 mmol/L (137-145); Total Bilirubin 0.6 mg/dL (0.2-1.3); Total Protein 6.1 g/dL (6.3-8.2)
[2025-02-22 11:36] LABS: Glucose,Whole Blood 218 mg/dL (70-110)
--- NOTE | 2025-02-22 12:01 | CA ---
Transthoracic Echo Report Name: Doe Little Age: 79 Gender: M : 1945 Exam Date: 02/22/2025 09:10 Exam Location: [facility] Ht (in): 72 Wt (lb): 190 Ordering Physician: Lavon Schulte Attending/Referring Phys: Furnace Cooler Joceline Cramer RDCS Procedure CPT: Indications: NSTEMI, CHf, weakness Cardiac Hx: CAD, CVA, DM, HTN, Pacemaker Technical Quality: Fair Contrast 1: Definity Total Dose (mL): 2 Contrast 2: Total Dose (mL): MEASUREMENTS (Male / Female) Normal Values 2D ECHO LV Diastolic Diameter PLAX 4.8 cm 4.2 - 5.9 / 3.9 - 5.3 cm LV Systolic Diameter PLAX 4.0 cm IVS Diastolic Thickness 1.6 cm 0.6 - 1.0 / 0.6 - 0.9 cm LVPW Diastolic Thickness 1.6 cm 0.6 - 1.0 / 0.6 - 0.9 cm LV Relative Wall Thickness 0.7 RV Internal Dim ED PLAX 4.0 cm LVOT Diameter 2.8 cm LA Systolic Diameter LX 3.9 cm 3.0 - 4.0 / 2.7 - 3.8 cm LV Diastolic Volume MOD BP 146.3 cm??? 67 - 155 / 56 - 104 cm??? LV Systolic Volume MOD BP 87.8 cm??? 22 - 58 / 19 - 49 cm??? LV Ejection Fraction MOD BP 40.0 % >= 55 % LV Cardiac Index MOD BP 1947.6 cm???/min???m??? LV Diastolic Volume MOD 4C 136.3 cm??? LV Systolic Volume MOD 4C 82.3 cm??? LV Ejection Fraction MOD 4C 39.6 % LV Cardiac Index MOD 4C 1798.3 cm???/min???m??? LV Diastolic Length 4C 7.8 cm LV Systolic Length 4C 7.6 cm LV Diastolic Volume MOD 2C 146.0 cm??? LV Systolic Volume MOD 2C 93.3 cm??? LV Ejection Fraction MOD 2C 36.1 % LV Cardiac Index MOD 2C 1756.0 cm???/min???m??? LV Diastolic Length 2C 8.4 cm LV Systolic Length 2C 7.8 cm LA Volume 98.9 cm??? 18 - 58 / 22 - 52 cm??? LA Volume Index 47.0 cm???/m??? 16 - 28 cm???/m??? M-MODE Aortic Root Diameter MM 3.9 cm AV Cusp Separation MM 2.0 cm DOPPLER AV Peak Velocity 222.4 cm/s AV Peak Gradient 19.8 mmHg AV Mean Velocity 173.4 cm/s AV Mean Gradient 12.8 mmHg AV Velocity Time Integral 48.0 cm LVOT Peak Velocity 93.9 cm/s LVOT Peak Gradient 3.5 mmHg LVOT Velocity Time Integral 17.9 cm LVOT Stroke Volume 110.3 cm??? LVOT Stroke Volume Index 52.9 ml/m??? LVOT Cardiac Index 3675.4 cm???/min???m??? AV Area Cont Eq vti 2.3 cm??? AV Area Cont Eq pk 2.6 cm??? MV Area PHT 5.0 cm??? Mitral E Point Velocity 112.5 cm/s Mitral A Point Velocity 57.5 cm/s Mitral E to A Ratio 2.0 MV Deceleration Time 151.8 ms TR Peak Velocity 258.7 cm/s TR Peak Gradient 26.8 mmHg Right Ventricular Systolic Press 31.8 mmHg FINDINGS Left Ventricle Left ventricular ejection fraction is estimated at 40-45 %. Left ventricular cavity size normal. Moderately increased septal wall thickness. Severely increased left ventricular systolic volume. Moderately decreased left ventricular ejection fraction. Right Ventricle Moderate right ventricular dilatation. Right ventricular systolic pressure within normal limits. Right Atrium Normal right atrial size. No right atrial thrombus or mass seen. Left Atrium Severely increased left atrial volume. Mildly increased left atrial area. No left atrial thrombus or mass present. Mitral Valve Mitral valve thickened. Mild mitral annular calcification. Mild mitral regurgitation. Aortic Valve Trileaflet aortic valve. Aortic valve sclerosis. Mild aortic stenosis with a peak gradient of 20 mmHg and a mean gradient of 13 mmHg. Tricuspid Valve Structurally normal tricuspid valve. Mild tricuspid regurgitation. Pulmonic Valve Pulmonic valve not well visualized. Trace pulmonic regurgitation. Pericardium No pericardial effusion. Aorta Mild aortic dilatation at the level of the sinuses of valsalva 39 mm CONCLUSIONS Normal LV size with mild to moderate global decrease in contractility, mitral annular calcification, calcified aortic valve leaflets with restriction in mild to moderate stenosis. Mild mitral and tricuspid insufficiency. No significant pulmonary hypertension. No pericardial effusion Previewed by: Dr. Escobar Ramirez MD (Electronically Signed) Final Date: 22 Feb 2025 12:01
[2025-02-22 14:04] VITALS: BMI 25.7
--- NOTE | 2025-02-22 16:23 | P.PN ---
Subjective Progress Note Date: 02/22/25 History of Presenting Illness: Patient is a very pleasant 79-year-old male with a past medical history of CAD, history of complete heart block status post biventricular pacemaker placement, chronic systolic heart failure with previously known EF of 45% paroxysmal atrial fibrillation, hypertension, hyperlipidemia, [id number] diabetes mellitus, CVA, and prostate cancer status post prostatectomy. He presented to the emergency department with a chief complaint of generalized weakness. Patient reports undergoing L5-S1 epidural injection for treatment of back pain with right-sided sciatica on Saturday. Patient reports injection resulted in improvement of lower back pain and sciatica but states Saturday evening he began experiencing recurrent episodes of loose watery diarrhea and decreased oral intake. Reports on Saturday he went to the restroom and felt very weak and lied down on the bathroom floor but was unable to get back up for multiple hours. Patient reports he pressed his alert button and his daughter came and tried to get him to come to the hospital but he refused. After being helped up patient's daughter reports that he ambulated with walker back to his bed and adamantly refused being evaluated at the hospital. 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 Patient states he was much more comfortable sleeping in his own bed in his own home. Patient reports he continued to have diarrhea and decreased oral intake and was again too weak to make it to the restroom and he lied down on the floor. Patient's daughter reports upon arrival this morning to check on him he was lying in his bedroom floor with diarrhea. EMS was called for transport to the hospital. Patient states he does not feel dizzy or lightheaded just generally weak and states his legs were just too weak to hold him up. He denies hitting his head or having any loss of consciousness. He reports only pain is to left knee when his legs gave out from weakness and falling onto his left knee. Patient denies weakness greater on either side states it is just general weakness in both legs. He denies having any dizziness, lightheadedness, changes in vision or hearing, chest pain, palpitations, shortness of breath, cough or congestion, abdominal pain or discomfort, nausea, vomiting, or experiencing any focal numbness or tingling. Patient reports bilateral lower extremity edema unchanged from baseline and actually looks a little better today than it has been over the past week. Patient reports following with chimney builder brick, Dr. Ragland. States he was off of his Eliquis for a week due to recent epidural injection. Upon arrival to our facility, patient underwent evaluation in the emergency department vital signs upon arrival show blood pressure 124/82, heart rate 125, respiratory rate 18,. Temp 97.9 F, SpO2 100% on room air. EKG completed showing sinus tachycardia at a paced ventricular rhythm each beat at 126 bpm. Chest x-ray showing low lung volumes with generalized hazy appearance concerning for pulmonary edema. Labs completed and reviewed. CBC showing elevated MCH of 33.0. Coagulation profile normal findings. BMP showing mild hypokalemia with potassium of 3.4 and prerenal azotemia with BUN of 36, creatinine 1.22, GFR 56. Blood glucose was 139. Initial lactic acid was 2.2. Liver profile showing elevated AST of 233, ALT of 62, and alkaline phosphatase of 64. Troponin was elevated at 0.495. proBNP was 18,600. TSH normal findings at 3.310. Urinalysis positive for protein, ketones and blood negative for infection. CT brain negative for acute intracranial process showing nonspecific white matter changes. Repeat EKG completed again showing ventricular paced rhythm now with controlled rate of 70 bpm with underlying atrial fibrillation present. Patient given aspirin 325 mg p.o. x 1 dose, started on low intensity heparin infusion and admitted under services with consultation to cardiology. Creatinine kinase resulting at 11,988. Physical exam: Patient seen and fully evaluated at bedside this morning. He reports feeling great this morning. He reports continued liquid yellow diarrhea but states frequency is improving. He continues to deny having any headache, lightheadedness, dizziness, chest pain, palpitations, shortness of breath, abdominal pain, nausea, vomiting, or experiencing any numbness/tingling/focal weakness in his extremities. He reports his strength and endurance has improved over the past 24 hours and he is feeling much better. Vital signs reviewed and stable. General: Nontoxic, no distress and appears stated age. Derm: Skin warm and dry, normal coloration for ethnicity. Head: Atraumatic, normocephalic and symmetric. Eyes: EOM's intact, no lid lag, and anicteric sclera Mouth: no lip lesions, mucus membranes moist Cardiovascular: Irregularly irregular, soft systolic murmur, positive posterior tibial pulses bilaterally, and cap refill < 2 seconds. Lungs: Respirations even, regular, and unlabored on room air. Lungs diminished, no rhonchi, no rales, no wheezing, and no accessory muscle usage. Abdominal: soft, nontender to palpation, no guarding, no appreciable organomegaly Ext: ROM intact. No gross muscle atrophy, 1+BLE pitting edema, no contractures Neuro: Speech clear, face symmetrical and CN II-XII grossly intact with no noted focal neuro deficits Psych: Alert and oriented to person, place, time, and situation. Appropriate and pleasant affect. Assessment and Plan of Care: Acute Rhabdomyolysis Elevated troponins, likely type II NSTEMI secondary to acute rhabdomyolysis Generalized weakness with reports of intractable diarrhea x 3 days Chronic systolic heart failure Third-degree heart block status post biventricular pacemaker placement History of CAD Paroxysmal Atrial Fibrillation Hypertension Hyperlipidemia -Cardiology, discontinued heparin infusion resuming Eliquis 5 mg twice daily. -Telemetry monitoring -Troponins trended resulting at 0.495, 0.486, and 0.405. -Aspirin 81 mg daily, atorvastatin 40 mg daily, Coreg 12.5 mg twice daily, and lisinopril 40 mg daily. -Repeat CPK pending continue IV fluid hydration with 0.9% NS at 100 cc/hour. -Stool culture and C. difficile PCR pending -Lipid profile unremarkable and hemoglobin A1c 8.0%. -Echocardiogram [id number] diabetes mellitus --Hold metformin and continue glycemic protocol with Humalog sliding scale. History of CVA -Continue aspirin 81 mg daily and atorvastatin 40 mg daily. History of prostate cancer - Patient is status post prostatectomy. Data and imaging reviewed: Morning labs reviewed. Repeat CPK pending. Troponins trended resulting at 0.495, 0.486, and 0.405. Stool culture and C. difficile PCR pending. Lipid profile unremarkable and hemoglobin A1c 8.0%. CBC showing mild macrocytosis with MCV of 97.9. BMP showing mild hypokalemia with potassium of 3.4, slight e levation of renal function with BUN of 35, creatinine 1.42, GFR 47. Blood glucose 221. Magnesium 1.9. Liver profile showing continued elevation but improvement of transaminitis with AST of 199 and ALT of 72. Vital signs reviewed. Blood pressure 130/70, heart rate 68, respiratory rate 16, temp 97.9 F, and SpO2 of 93% on room air. CODE STATUS: Full code DVT prophylaxis: Eliquis Discussed with: Patient, RN, and cardiology LEARNING SERVICES COORDINATOR Anticipated discharge date: Pending Clinical course Anticipated discharge place: Home Patient was seen independently by Nurse Practitioner. This document was prepared using [employer] dictation software. Please allow for errors in games dealer while rare they do occur. Lavon Schulte, LEARNING SERVICES COORDINATOR rendered care for this patient independently, reviewed the findings and plan as documented in the note above and agree with plan. I did not physically speak with or examine the patient on this date. Objective - Vital Signs Vital signs: Vital Signs Temp 98.3 F 02/22/25 04:15 Pulse 69 02/22/25 04:15 Resp 16 02/22/25 04:15 BP 135/72 02/22/25 06:09 Pulse Ox 100 02/22/25 04:15 FiO2 Intake & Output 02/21/25 02/22/25 02/22/25 18:59 06:59 18:59 Intake Total 209.5 240 Balance 209.5 240 Weight 86.183 kg Intake: Intake, IV Titration 59.5 Amount Heparin Sod,Pork in 0.45% 59.5 NaCl 25,000 unit In 0.45 % NaCl 1 250ml.bag @ 11. 603 UNITS/KG/HR 10 mls/hr IV .Q24H [facility] Rx#: [id number] Oral 150 240 Other: Voiding Method Urinal Urinal # Voids 1 # Bowel Movements 1 - Labs CBC & Chem 7: 02/22/25 10:10 02/22/25 10:10 Labs: Abnormal Lab Results - Last 24 Hours (Table) 02/21/25 02/21/25 02/21/25 Range/Units 09:59 09:59 09:59 RBC 4.24 L (4.40-5.60) 10*6/uL MCH 33.0 H (27.0-32.0) pg Lymphocytes # 0.58 L (0.90-5.00) 10*3/uL Eosinophils # 0.00 L (0.04-0.35) 10*3/uL APTT (22.0-30.0) sec Potassium 3.4 L (3.5-5.1) mmol/L BUN 36 H (9-20) mg/dL Glucose 139 H (74-99) mg/dL POC Glucose (mg/dL) (70-110) mg/dL Plasma Lactic Acid Stanley 2.2 H* (0.7-2.0) mmol/L AST 233 H (17-59) U/L ALT 62 H (4-49) U/L Creatine Kinase (55-170) U/L Troponin I (0.000-0.034) ng/mL Urine Protein (Negative) Urine Ketones (Negative) Urine Blood (Negative) Urine Bacteria (None) /hpf Hyaline Casts (0-2) /lpf Urine Mucus (None) /hpf 02/21/25 02/21/25 02/21/25 Range/Units 09:59 12:01 12:34 RBC (4.40-5.60) 10*6/uL MCH (27.0-32.0) pg Lymphocytes # (0.90-5.00) 10*3/uL Eosinophils # (0.04-0.35) 10*3/uL APTT 51.9 H (22.0-30.0) sec Potassium (3.5-5.1) mmol/L BUN (9-20) mg/dL Glucose (74-99) mg/dL POC Glucose (mg/dL) (70-110) mg/dL Plasma Lactic Acid Stanley (0.7-2.0) mmol/L AST (17-59) U/L ALT (4-49) U/L Creatine Kinase (55-170) U/L Troponin I 0.495 H* (0.000-0.034) ng/mL Urine Protein 1+ H (Negative) Urine Ketones 1+ H (Negative) Urine Blood Large H (Negative) Urine Bacteria Rare H (None) /hpf Hyaline Casts 4 H (0-2) /lpf Urine Mucus Rare H (None) /hpf 02/21/25 02/21/25 02/21/25 Range/Units 12:34 14:59 14:59 RBC (4.40-5.60) 10*6/uL MCH (27.0-32.0) pg Lymphocytes # (0.90-5.00) 10*3/uL Eosinophils # (0.04-0.35) 10*3/uL APTT (22.0-30.0) sec Potassium (3.5-5.1) mmol/L BUN (9-20) mg/dL Glucose (74-99) mg/dL POC Glucose (mg/dL) (70-110) mg/dL Plasma Lactic Acid Stanley (0.7-2.0) mmol/L AST (17-59) U/L ALT (4-49) U/L Creatine Kinase 11193 H* (55-170) U/L Troponin I 0.486 H* 0.405 H* (0.000-0.034) ng/mL Urine Protein (Negative) Urine Ketones (Negative) Urine Blood (Negative) Urine Bacteria (None) /hpf Hyaline Casts (0-2) /lpf Urine Mucus (None) /hpf 02/21/25 02/21/25 02/21/25 Range/Units 16:26 17:04 20:35 RBC (4.40-5.60) 10*6/uL MCH (27.0-32.0) pg Lymphocytes # (0.90-5.00) 10*3/uL Eosinophils # (0.04-0.35) 10*3/uL APTT 31.9 H (22.0-30.0) sec Potassium (3.5-5.1) mmol/L BUN (9-20) mg/dL Glucose (74-99) mg/dL POC Glucose (mg/dL) 188 H 202 H (70-110) mg/dL Plasma Lactic Acid Stanley (0.7-2.0) mmol/L AST (17-59) U/L ALT (4-49) U/L Creatine Kinase (55-170) U/L Troponin I (0.000-0.034) ng/mL Urine Protein (Negative) Urine Ketones (Negative) Urine Blood (Negative) Urine Bacteria (None) /hpf Hyaline Casts (0-2) /lpf Urine Mucus (None) /hpf 02/22/25 Range/Units 06:04 RBC (4.40-5.60) 10*6/uL MCH (27.0-32.0) pg Lymphocytes # (0.90-5.00) 10*3/uL Eosinophils # (0.04-0.35) 10*3/uL APTT (22.0-30.0) sec Potassium (3.5-5.1) mmol/L BUN (9-20) mg/dL Glucose (74-99) mg/dL POC Glucose (mg/dL) 171 H (70-110) mg/dL Plasma Lactic Acid Stanley (0.7-2.0) mmol/L AST (17-59) U/L ALT (4-49) U/L Creatine Kinase (55-170) U/L Troponin I (0.000-0.034) ng/mL Urine Protein (Negative) Urine Ketones (Negative) Urine Blood (Negative) Urine Bacteria (None) /hpf Hyaline Casts (0-2) /lpf Urine Mucus (None) /hpf
[2025-02-22 17:17] LABS: Glucose,Whole Blood 171 mg/dL (70-110)
[2025-02-22 20:09] LABS: Glucose,Whole Blood 257 mg/dL (70-110)
[2025-02-23 05:23] LABS: Influenza A Not Detected (Not Detectd); Influenza B Not Detected (Not Detectd); RSV Not Detected (Not Detectd)
[2025-02-23 06:14] LABS: Glucose,Whole Blood 184 mg/dL (70-110)
[2025-02-23 07:36] LABS: HCT 37.8 % (39.6-50.0); HGB 12.7 g/dL (13.0-17.0); MCH 32.6 pg (27.0-32.0); MCHC 33.6 g/dL (32.0-37.0); MCV 97.2 fL (80.0-97.0); Mean Platelet Volume 11.3 fL (9.5-12.2); Platelet Count 155 10*3/uL (140-440); RBC 3.89 10*6/uL (4.40-5.60); RDW 12.2 % (11.5-14.5); WBC 3.97 10*3/uL (4.50-10.00)
[2025-02-23 08:04] LABS: ALT 78 U/L (4-49); AST 136 U/L (17-59); African American GFR (CKD) 68 (>60 ml/min/1.73 sqM); Albumin 3.2 g/dL (3.5-5.0); Alkaline Phosphatase 58 U/L (38-126); Anion Gap 7 mmol/L; Blood Urea Nitrogen 23 mg/dL (9-20); Calcium 9.1 mg/dL (8.4-10.2); Carbon Dioxide 26 mmol/L (22-30); Chloride 106 mmol/L (98-107); Glucose 186 mg/dL (74-99); Magnesium 1.8 mg/dL (1.6-2.3); Non-African American GFR(CKD) 58 (>60 ml/min/1.73 sqM); Potassium 3.6 mmol/L (3.5-5.1); Sodium 139 mmol/L (137-145); Total Bilirubin 0.7 mg/dL (0.2-1.3); Total Protein 5.5 g/dL (6.3-8.2)
[2025-02-23 09:51] LABS: Creatine Kinase 3512 U/L (55-170)
[2025-02-23 11:23] LABS: Glucose,Whole Blood 209 mg/dL (70-110)
--- NOTE | 2025-02-23 12:00 | P.PN ---
Subjective HISTORY OF PRESENT ILLNESS: Patient is a 79-year-old male known to Dr. Corrales. He has prior history of CAD, complete heart block status post PPM, systolic heart failure EF 45%, paroxysmal atrial fibrillation, hypertension dyslipidemia type 2 diabetes, CVA and prostate cancer. He presented to the hospital because of generalized weakness following his recent spinal epidural injection. He is also been having increased watery loose stools and he has been having very poor oral intake. Patient daughter found that patient was lying on the floor with diarrhea bowel movement on Saturday which prompted bringing the patient to the hospital. Denies any symptoms of chest pain chest pressure however he appears to be a poor historian at this time. Mild encephalopathy. Admission EKG showed atrial fibrillation with RVR with paced rhythm, repeat EKG shows sinus rhythm with ventricularly paced rhythm biventricular Chest x-ray shows mild haziness but no significant signs of consolidation or congestion CT head did not show any signs of an acute intracranial process Labs shows troponin elevation of 0.4 with a flat pattern, NT-proBNP is 18,000, lactate is 2.2, CPK is elevated, creatinine 1.2 02/22/2025 Patient examined this morning at the bedside. Patient currently denies chest pain or pressure. He denies shortness of breath. Vital signs are stable. 02/23/2025 Patient examined this morning the bedside. Patient currently denies chest pain or pressure. Denies shortness of breath. Echocardiogram reveals ejection fraction 40 to 45%, mild MR, mild aortic stenosis, mild TR PHYSICAL EXAM: VITAL SIGNS: Reviewed. GENERAL: Well-developed in no acute distress. NECK: Supple. No JVD or thyromegaly LUNGS: Respirations even and unlabored. Lungs essentially clear to auscultation bilaterally. HEART: Regular rate and rhythm. S1 and S2 heard. EXTREMITIES: Normal range of motion. No clubbing or cyanosis. Peripheral pulses intact. No lower extremity edema ASSESSMENT: # Mild metabolic encephalopathy likely from dehydration # Dehydration from poor oral intake and diarrhea # Rhabdomyolysis # Elevated troponin likely due to rhabdomyolysis, no evidence of myocardial injury or ischemia # A-fib RVR on admission, prior history of paroxysmal A-fib # History of biventricular PPM for complete heart block PLAN: Continue aspirin, Eliquis, Lipitor, carvedilol, lisinopril Patient is stable for discharge home today from a cardiac standpoint Patient to follow-up postdischarge in the office with Dr. Ragland We will sign off. Please reconsult if needed. Nurse practitioner note has been reviewed by physician. Signing provider agrees with the documented findings, assessment, and plan of care documented by [employer] as a scribe. Objective - Vital Signs Vital signs: Vital Signs Temp 98.2 F 02/23/25 08:38 Pulse 70 02/23/25 08:38 Resp 18 02/23/25 08:38 BP 154/73 02/23/25 08:38 Pulse Ox 99 02/23/25 08:38 FiO2 Intake & Output 02/22/25 02/23/25 02/23/25 18:59 06:59 18:59 Intake Total 1436 240 Output Total 250 Balance 1436 -10 Weight 86.183 kg 89.5 kg Intake: Intake, IV Titration 600 Amount Sodium Chloride 0.9% 1, 600 000 ml @ 100 mls/hr IV . Q10H [facility] Rx#:[id number] Oral 836 240 Output: Urine 250 Other: Voiding Method Urinal Urinal Urinal # Voids 1 1 # Bowel Movements 1 - Labs CBC & Chem 7: 02/23/25 07:17 02/23/25 07:17 Labs: Abnormal Lab Results - Last 24 Hours (Table) 02/22/25 02/22/25 02/22/25 Range/Units 14:20 17:12 20:07 WBC (4.50-10.00) 10*3/uL RBC (4.40-5.60) 10*6/uL Hgb (13.0-17.0) g/dL Hct (39.6-50.0) % MCV (80.0-97.0) fL MCH (27.0-32.0) pg BUN (9-20) mg/dL Glucose (74-99) mg/dL POC Glucose (mg/dL) 171 H 257 H (70-110) mg/dL AST (17-59) U/L ALT (4-49) U/L Creatine Kinase 6361 H* (55-170) U/L Total Protein (6.3-8.2) g/dL Albumin (3.5-5.0) g/dL 02/23/25 02/23/25 02/23/25 Range/Units 06:13 07:17 07:17 WBC 3.97 L (4.50-10.00) 10*3/uL RBC 3.89 L (4.40-5.60) 10*6/uL Hgb 12.7 L (13.0-17.0) g/dL Hct 37.8 L (39.6-50.0) % MCV 97.2 H (80.0-97.0) fL MCH 32.6 H (27.0-32.0) pg BUN 23 H (9-20) mg/dL Glucose 186 H (74-99) mg/dL POC Glucose (mg/dL) 184 H (70-110) mg/dL AST 136 H (17-59) U/L ALT 78 H (4-49) U/L Creatine Kinase 3512 H* (55-170) U/L Total Protein 5.5 L (6.3-8.2) g/dL Albumin 3.2 L (3.5-5.0) g/dL 02/23/25 Range/Units 11:21 WBC (4.50-10.00) 10*3/uL RBC (4.40-5.60) 10*6/uL Hgb (13.0-17.0) g/dL Hct (39.6-50.0) % MCV (80.0-97.0) fL MCH (27.0-32.0) pg BUN (9-20) mg/dL Glucose (74-99) mg/dL POC Glucose (mg/dL) 209 H (70-110) mg/dL AST (17-59) U/L ALT (4-49) U/L Creatine Kinase (55-170) U/L Total Protein (6.3-8.2) g/dL Albumin (3.5-5.0) g/dL Microbiology - Last 24 Hours (Table) 02/21/25 17:51 Stool Culture - Preliminary Stool
[2025-02-23] MEDS: SODIUM CHLORIDE 0.9% 500 ML 500 ML IV ONE (12:42)
[2025-02-23 16:16] LABS: Glucose,Whole Blood 162 mg/dL (70-110)
--- NOTE | 2025-02-23 16:41 | P.PN ---
Subjective Progress Note Date: 02/23/25 Hospital Course: Patient is a very pleasant 79-year-old male with a past medical history of CAD, history of complete heart block status post biventricular pacemaker placement, chronic systolic heart failure with previously known EF of 45% paroxysmal atrial fibrillation, hypertension, hyperlipidemia, nvw-gldiuue-dnggolyym diabetes mellitus, CVA, and prostate cancer status post prostatectomy. He presented to the emergency department with a chief complaint of generalized weakness. Patient reports undergoing L5-S1 epidural injection for treatment of back pain with right-sided sciatica on Saturday. Patient reports injection resulted in improvement of lower back pain and sciatica but states Saturday evening he began experiencing recurrent episodes of loose watery diarrhea and decreased oral intake. Reports on Saturday he went to the restroom and felt very weak and lied down on the bathroom floor but was unable to get back up for multiple hours. Patient reports he pressed his alert button and his daughter came and tried to get him to come to the hospital but he refused. After being helped up patient's daughter reports that he ambulated with walker back to his bed and adamantly refused being evaluated at the hospital. 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 Patient states he was much more comfortable sleeping in his own bed in his own home. Patient reports he continued to have diarrhea and decreased oral intake and was again too weak to make it to the restroom and he lied down on the floor. Patient's daughter reports upon arrival this morning to check on him he was lying in his bedroom floor with diarrhea. EMS was called for transport to the hospital. Patient states he does not feel dizzy or lightheaded just generally weak and states his legs were just too weak to hold him up. He denies hitting his head or having any loss of consciousness. He reports only pain is to left knee when his legs gave out from weakness and falling onto his left knee. Patient denies weakness greater on either side states it is just general weakness in both legs. He denies having any dizziness, lightheadedness, changes in vision or hearing, chest pain, palpitations, shortness of breath, cough or congestion, abdominal pain or discomfort, nausea, vomiting, or experiencing any focal numbness or tingling. Patient reports bilateral lower extremity edema unchanged from baseline and actually looks a little better today than it has been over the past week. Patient reports following with blood bank business manager, Dr. Ragland. States he was off of his Eliquis for a week due to recent epidural injection. Upon arrival to our facility, patient underwent evaluation in the emergency department vital signs upon arrival show blood pressure 124/82, heart rate 125, respiratory rate 18,. Temp 97.9 F, SpO2 100% on room air. EKG completed showing sinus tachycardia at a paced ventricular rhythm each beat at 126 bpm. Chest x-ray showing low lung volumes with generalized hazy appearance concerning for pulmonary edema. Labs completed and reviewed. CBC showing elevated MCH of 33.0. Coagulation profile normal findings. BMP showing mild hypokalemia with potassium of 3.4 and prerenal azotemia with BUN of 36, creatinine 1.22, GFR 56. Blood glucose was 139. Initial lactic acid was 2.2. Liver profile showing elevated AST of 233, ALT of 62, and alkaline phosphatase of 64. Troponin was elevated at 0.495. proBNP was 18,600. TSH normal findings at 3.310. Urinalysis positive for protein, ketones and blood negative for infection. CT brain negative for acute intracranial process showing nonspecific white matter changes. Repeat EKG completed again showing ventricular paced rhythm now with controlled rate of 70 bpm with underlying atrial fibrillation present. Patient given aspirin 325 mg p.o. x 1 dose, started on low intensity heparin infusion and admitted under services with consultation to cardiology. Creatinine kinase resulting at 11,988. Physical exam: Patient seen and fully evaluated at bedside this morning. Patient expressing frustration this morning concerned that nothing is being done in the hospital and he could do the same thing at home. Patient informed that his CPK is phuong ntrending and we are going to increase his fluids today and if he is feeling better we will plan for discharge tomorrow morning. Vital signs reviewed and stable. General: Nontoxic, no distress and appears stated age. Derm: Skin warm and dry, normal coloration for ethnicity. Head: Atraumatic, normocephalic and symmetric. Eyes: EOM's intact, no lid lag, and anicteric sclera Mouth: no lip lesions, mucus membranes moist Cardiovascular: Irregularly irregular, soft systolic murmur, positive posterior tibial pulses bilaterally, and cap refill < 2 seconds. Lungs: Respirations even, regular, and unlabored on room air. Lungs diminished, no rhonchi, no rales, no wheezing, and no accessory muscle usage. Abdominal: soft, nontender to palpation, no guarding, no appreciable organomegaly Ext: ROM intact. No gross muscle atrophy, 1+BLE pitting edema, no contractures Neuro: Speech clear, face symmetrical and CN II-XII grossly intact with no noted focal neuro deficits Psych: Alert and oriented to person, place, time, and situation. Appropriate and pleasant affect. Assessment and Plan of Care: Acute Rhabdomyolysis Metabolic encephalopathy, likely secondary to above Elevated troponins, likely type II NSTEMI secondary to acute rhabdomyolysis Generalized weakness with reports of intractable diarrhea x 3 days Chronic systolic heart failure Third-degree heart block status post biventricular pacemaker placement History of CAD Paroxysmal Atrial Fibrillation Hypertension Hyperlipidemia -Cardiology evaluated, discussed case with cardiology MANAGER DELI. Cardiology clearing patient from cardiac perspective stating elevated troponin secondary to acute rhabdomyolysis recommending outpatient follow-up postdischarge with Dr. Corrales. -Telemetry monitoring -Troponins trended resulting at 0.495, 0.486, and 0.405. -Initial creatinine kinase 11,988 and downward trending at 6361 and today is 3512. -Aspirin 81 mg daily, atorvastatin 40 mg daily, Coreg 12.5 mg twice daily, and lisinopril 40 mg daily. -CPK is downtrending. Will administer an additional 500 cc bolus and increase fluids to 125 cc/h for 24 hours. -Stool culture in process -Lipid profile unremarkable and hemoglobin A1c 8.0%. -Echocardiogram was completed showing a slightly reduced EF of 40 to 45% with moderate global decrease in contractility, mitral annular calcification, calcified aortic valve leaflets with restriction and mild to moderate stenosis, mild mitral and tricuspid regurgitation, and no significant pericardial effusion Lck-zbpssmo-hyrzgqckw diabetes mellitus --Hold metformin and continue glycemic protocol with Humalog sliding scale. History of CVA -Continue aspirin 81 mg daily and atorvastatin 40 mg daily. History of prostate cancer - Patient is status post prostatectomy. Data and imaging reviewed: Morning labs reviewed. Repeat CPK 3512. Troponins trended resulting at 0.495, 0.486, and 0.405. Stool culture in process and pending.. CBC showing bicytopenia with WBC count of 3.97 and hemoglobin of 12.7. BMP showing improvement in renal function with BUN of 23, creatinine of 1.18, GFR 58. Blood glucose 186. Magnesium 1.8. Liver profile showing improvement of transaminitis with AST of 136 and ALT of 78. Cepheid 4 Plex viral panel was negative. Vital signs reviewed. Blood pressure 154/73, heart rate 70, respiratory rate 18, temp 98.2 F, and SpO2 of 99% on room air CODE STATUS: Full code DVT prophylaxis: Eliquis Discussed with: Patient, RN, and cardiology MANAGER DELI Anticipated discharge date: Pending Clinical course Anticipated discharge place: Home Patient was seen independently by Nurse Practitioner. This document was prepared using [employer] dictation software. Please allow for errors in radiology transcriptionist while rare they do occur. Lavon Schulte, ANNETTE rendered care for this patient independently, reviewed the findings and plan as documented in the note above and agree with plan. I did not physically speak with or examine the patient on this date. Objective - Vital Signs Vital signs: Vital Signs Temp 98.2 F 02/23/25 08:38 Pulse 70 02/23/25 08:38 Resp 18 02/23/25 08:38 BP 154/73 02/23/25 08:38 Pulse Ox 99 02/23/25 08:38 FiO2 Intake & Output 02/22/25 02/23/25 02/23/25 18:59 06:59 18:59 Intake Total 1436 Balance 1436 Weight 86.183 kg 89.5 kg Intake: Intake, IV Titration 600 Amount Sodium Chloride 0.9% 1, 600 000 ml @ 100 mls/hr IV . Q10H [facility] Rx#:[id number] Oral 836 Other: Voiding Method Urinal Urinal # Voids 1 - Labs CBC & Chem 7: 02/23/25 07:17 02/23/25 07:17 Labs: Abnormal Lab Results - Last 24 Hours (Table) 02/22/25 02/22/25 02/22/25 Range/Units 06:10 10:10 10:10 WBC (4.50-10.00) 10*3/uL RBC 4.21 L (4.40-5.60) 10*6/uL Hgb (13.0-17.0) g/dL Hct (39.6-50.0) % MCV 97.9 H (80.0-97.0) fL MCH (27.0-32.0) pg Potassium 3.4 L (3.5-5.1) mmol/L BUN 35 H (9-20) mg/dL Creatinine 1.42 H (0.66-1.25) mg/dL Glucose 221 H (74-99) mg/dL POC Glucose (mg/dL) (70-110) mg/dL Hemoglobin A1c 8.0 H (<=6.0) % AST 199 H (17-59) U/L ALT 72 H (4-49) U/L Creatine Kinase (55-170) U/L Total Protein 6.1 L (6.3-8.2) g/dL Albumin (3.5-5.0) g/dL 02/22/25 02/22/25 02/22/25 Range/Units 11:34 14:20 17:12 WBC (4.50-10.00) 10*3/uL RBC (4.40-5.60) 10*6/uL Hgb (13.0-17.0) g/dL Hct (39.6-50.0) % MCV (80.0-97.0) fL MCH (27.0-32.0) pg Potassium (3.5-5.1) mmol/L BUN (9-20) mg/dL Creatinine (0.66-1.25) mg/dL Glucose (74-99) mg/dL POC Glucose (mg/dL) 218 H 171 H (70-110) mg/dL Hemoglobin A1c (<=6.0) % AST (17-59) U/L ALT (4-49) U/L Creatine Kinase 6361 H* (55-170) U/L Total Protein (6.3-8.2) g/dL Albumin (3.5-5.0) g/dL 02/22/25 02/23/25 02/23/25 Range/Units 20:07 06:13 07:17 WBC 3.97 L (4.50-10.00) 10*3/uL RBC 3.89 L (4.40-5.60) 10*6/uL Hgb 12.7 L (13.0-17.0) g/dL Hct 37.8 L (39.6-50.0) % MCV 97.2 H (80.0-97.0) fL MCH 32.6 H (27.0-32.0) pg Potassium (3.5-5.1) mmol/L BUN (9-20) mg/dL Creatinine (0.66-1.25) mg/dL Glucose (74-99) mg/dL POC Glucose (mg/dL) 257 H 184 H (70-110) mg/dL Hemoglobin A1c (<=6.0) % AST (17-59) U/L ALT (4-49) U/L Creatine Kinase (55-170) U/L Total Protein (6.3-8.2) g/dL Albumin (3.5-5.0) g/dL 02/23/25 Range/Units 07:17 WBC (4.50-10.00) 10*3/uL RBC (4.40-5.60) 10*6/uL Hgb (13.0-17.0) g/dL Hct (39.6-50.0) % MCV (80.0-97.0) fL MCH (27.0-32.0) pg Potassium (3.5-5.1) mmol/L BUN 23 H (9-20) mg/dL Creatinine (0.66-1.25) mg/dL Glucose 186 H (74-99) mg/dL POC Glucose (mg/dL) (70-110) mg/dL Hemoglobin A1c (<=6.0) % AST 136 H (17-59) U/L ALT 78 H (4-49) U/L Creatine Kinase (55-170) U/L Total Protein 5.5 L (6.3-8.2) g/dL Albumin 3.2 L (3.5-5.0) g/dL
--- NOTE | 2025-02-23 19:12 | CDI ---
Documentation Clarification Form Date: 02/23/2025 06:49:15 PM From: Meme Schultz RN, CCDS Phone: [phone] Admit Date: 02/21/2025 11:23:00 AM Patient Name: Doe Little Visit Number: [id number] Discharge Date: ATTENTION: The Clinical Documentation Specialists (CDI) and [facility] Coding Staff appreciate your assistance in clarifying documentation. Please respond to the clarification below the line at the bottom and electronically sign. The CDI & [facility] Coding staff will review the response and follow-up if needed. Please note: Queries are made part of the Legal Health Record. If you have any questions, please contact the author of this message via ITS. Provider: Lavon RENTERIA Rhabdomyolysis is documented in the H/P and subsequent progress notes Additional clarification regarding the type of rhabdomyolysis is requested. History/Risk Factors: Atrial Fibrillation, Coronary Artery Disease (CAD), CVA/TIA, Diabetes Mellitus, Hyperlipidemia, Hypertension Clinical Indicators: 79-year-old male with a chief complaint of generalized weakness, recurrent episodes of loose watery diarrhea and decreased oral. He reports he was very weak and lied down on the bathroom floor but was unable to get back up for multiple hours. 02/21 VS: 124/82 125 18 97.9 100% RA 02/21 Labs: K+ 3.4 BUN 36, CR 1.22GFR 56, Lactic acid 2.2 Troponin 0.495, proBNP 18,600, Creatinine kinase 11,988 02/22 Lab: BUN 35, CR 1.42, Creatinine kinase 6361 Treatment: 500 ML/Bolus> .9 % NS IV @ 125 HR Monitor kidney function electrolytes and urine output Monitor CPK daily per orders Please clarify the type of rhabdomyolysis, if known: [X ] Traumatic rhabdomyolysis due to prolonged immobility As documented pt was lying on floor for extended period of time and unable to get up [ ] Other, please specify [ ] Unable to Determine (Template Last Revised: December 2020) KRISTIAND
[2025-02-23 20:10] LABS: Glucose,Whole Blood 255 mg/dL (70-110)
[2025-02-24 03:17] VITALS: PULSE 70
[2025-02-24 05:53] LABS: Glucose,Whole Blood 217 mg/dL (70-110)
[2025-02-24 06:42] LABS: HCT 37.2 % (39.6-50.0); HGB 12.2 g/dL (13.0-17.0); MCH 31.8 pg (27.0-32.0); MCHC 32.8 g/dL (32.0-37.0); MCV 96.9 fL (80.0-97.0); Mean Platelet Volume 11.3 fL (9.5-12.2); Platelet Count 160 10*3/uL (140-440); RBC 3.84 10*6/uL (4.40-5.60); RDW 12.1 % (11.5-14.5); WBC 3.52 10*3/uL (4.50-10.00)
[2025-02-24 07:11] LABS: ALT 70 U/L (4-49); AST 88 U/L (17-59); African American GFR (CKD) 82 (>60 ml/min/1.73 sqM); Alkaline Phosphatase 52 U/L (38-126); Anion Gap 4 mmol/L; Blood Urea Nitrogen 13 mg/dL (9-20); Calcium 8.7 mg/dL (8.4-10.2); Carbon Dioxide 28 mmol/L (22-30); Chloride 108 mmol/L (98-107); Glucose 184 mg/dL (74-99); Magnesium 1.7 mg/dL (1.6-2.3); Non-African American GFR(CKD) 71 (>60 ml/min/1.73 sqM); Potassium 3.6 mmol/L (3.5-5.1); Sodium 140 mmol/L (137-145); Total Bilirubin 0.7 mg/dL (0.2-1.3); Total Protein 5.3 g/dL (6.3-8.2)
--- NOTE | 2025-02-24 10:17 | P.DS ---
Providers Date of admission: 02/21/25 11:23 Expected date of discharge: 02/24/25 Attending physician: Zoe Gracia MD Primary care physician: Mojgan Acosta MD Hospital Course: Discharge Diagnosis: Acute Rhabdomyolysis, secondary to prolonged period of immobility on floor after fall. Elevated troponins, likely type II NSTEMI secondary to acute rhabdomyolysis Generalized weakness with reports of intractable diarrhea x 3 days. Resolved. Stool culture showing no Salmonella, Shigella, or E. coli noted. Patient reports feeling great. Patient ambulating well in halls with physical therapy with no difficulties reported. 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 Hemoglobin A1c 8.0%. Patient to resume Actos and Glucophage. History of CVA. Continue aspirin 81 mg daily and atorvastatin 40 mg daily. History of prostate cancer. Patient is status post prostatectomy Hospital Course: Patient is a very pleasant 79-year-old male with a past medical history of CAD, history of complete heart block status post biventricular pacemaker placement, chronic systolic heart failure with previously known EF of 45% paroxysmal atrial fibrillation, hypertension, hyperlipidemia, [id number] diabetes mellitus, CVA, and prostate cancer status post prostatectomy. He presented to the emergency department with a chief complaint of generalized weakness. Patient reports undergoing L5-S1 epidural injection for treatment of back pain with right-sided sciatica on Saturday. Patient reports injection resulted in improvement of lower back pain and sciatica but states Saturday evening he began experiencing recurrent episodes of loose watery diarrhea and decreased oral intake. Reports on Saturday he went to the restroom and felt very weak and lied down on the bathroom floor but was unable to get back up for multiple hours. Patient reports he pressed his alert button and his daughter came and tried to get him to come to the hospital but he refused. After being helped up patient's daughter reports that he ambulated with walker back to his bed and adamantly refused being evaluated at the hospital. 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 Patient states he was much more comfortable sleeping in his own bed in his own home. Patient reports he continued to have diarrhea and decreased oral intake and was again too weak to make it to the restroom and he lied down on the floor. Patient's daughter reports upon arrival this morning to check on him he was lying in his bedroom floor with diarrhea. EMS was called for transport to the hospital. Patient states he does not feel dizzy or lightheaded just generally weak and states his legs were just too weak to hold him up. He denies hitting his head or having any loss of consciousness. He reports only pain is to left knee when his legs gave out from weakness and falling onto his left knee. Patient denies weakness greater on either side states it is just general weakness in both legs. He denies having any dizziness, lightheadedness, changes in vision or hearing, chest pain, palpitations, shortness of breath, cough or congestion, abdominal pain or discomfort, nausea, vomiting, or experiencing any focal numbness or tingling. Patient reports bilateral lower extremity edema unchanged from baseline and actually looks a little better today than it has been over the past week. Patient reports following with director river restoration, Dr. Ragland. States he was off of his Eliquis for a week due to recent epidural injection. Upon arrival to our facility, patient underwent evaluation in the emergency department vital signs upon arrival show blood pressure 124/82, heart rate 125, respiratory rate 18,. Temp 97.9 F, SpO2 100% on room air. EKG completed showing sinus tachycardia at a paced ventricular rhythm each beat at 126 bpm. Chest x-ray showing low lung volumes with generalized hazy appearance concerning for pulmonary edema. Labs completed and reviewed. CBC showing elevated MCH of 33.0. Coagulation profile normal findings. BMP showing mild hypokalemia with potassium of 3.4 and prerenal azotemia with BUN of 36, creatinine 1.22, GFR 56. Blood glucose was 139. Initial lactic acid was 2.2. Liver profile showing elevated AST of 233, ALT of 62, and alkaline phosphatase of 64. Troponin was elevated at 0.495. proBNP was 18,600. TSH normal findings at 3.310. Urinalysis positive for protein, ketones and blood negative for infection. CT brain negative for acute intracranial process showing nonspecific white matter changes. Repeat EKG completed again showing ventricular paced rhythm now with controlled rate of 70 bpm with underlying atrial fibrillation present. Patient given aspirin 325 mg p.o. x 1 dose, started on low intensity heparin infusion and admitted under services with consultation to cardiology. Creatinine kinase resulting at 11,988. Patient was started on IV fluid hydration. Cardiology evaluated discontinuing heparin infusion and starting patient back on oral Eliquis. Echocardiogram was completed showing a slightly reduced EF of 40 to 45% with moderate global decrease in contractility, mitral annular calcification, calcified aortic valve leaflets with restriction and mild to moderate stenosis, mild mitral and tricuspid regurgitation, and no significant pericardial effusion. Lipid profile unremarkable and hemoglobin A1c 8.0%. Stool culture showing no Salmonella, Shigella, or E. coli noted. Diarrhea resolved. CPK down trended from 11,988, 6361, and 3512. Patient received an additional bolus followed by another 24 hours of IV fluid hydration. He reports feeling great and free from any complaints. Patient was cleared from cardiac perspective stating elevated troponin secondary to acute rhabdomyolysis and recommending outpatient follow-up postdischarge with Dr. Corrales. Patient is medically optimized for discharge at this time. Patient to follow-up outpatient with PCP in 1 to 2 days and with director river restoration in 1 week. Physical exam: Vital signs reviewed and stable. General: Nontoxic, no distress and appears stated age. Derm: Skin warm and dry, normal coloration for ethnicity. Head: Atraumatic, normocephalic and symmetric. Eyes: EOM's intact, no lid lag, and anicteric sclera Mouth: no lip lesions, mucus membranes moist Cardiovascular: Irregularly irregular, soft systolic murmur, positive posterior tibial pulses bilaterally, and cap refill < 2 seconds. Lungs: Respirations even, regular, and unlabored on room air. Lungs diminished, no rhonchi, no rales, no wheezing, and no accessory muscle usage. Abdominal: soft, nontender to palpation, no guarding, no appreciable organomegaly Ext: ROM intact. No gross muscle atrophy, 1+BLE pitting edema, no contractures Neuro: Speech clear, face symmetrical and CN II-XII grossly intact with no noted focal neuro deficits Psych: Alert and oriented to person, place, time, and situation. Appropriate and pleasant affect. A total of 37 minutes of time were spent preparing this complex discharge summary. Pt was discharged on 02/24/2025 at 9:48 AM. Patient was seen independently by Nurse Practitioner. This document was prepared using [employer] dictation software. Please allow for errors in brick maker while rare they do occur. Lavon Schulte NP rendered care for this patient independently, reviewed the findings and plan as documented in the note above. I did not physically speak with or examine the patient on this date. . Patient Condition at Discharge: Stable Plan - Discharge Summary Discharge Rx Participant: Yes New Discharge Prescriptions: Continue allopurinoL [Zyloprim] 100 mg PO DAILY Furosemide [Lasix] 20 mg PO DAILY DULoxetine HCL [Cymbalta] 60 mg PO DAILY lisinopriL 40 mg PO DAILY Pregabalin [Lyrica] 50 mg PO BID carvediloL [Coreg*] 12.5 mg PO BID metFORMIN HCL ER [Glucophage XR] 1,000 mg PO BID Atorvastatin [Lipitor] 40 mg PO DAILY #30 tab Apixaban [Eliquis] 5 mg PO BID Chlorthalidone [Hygroton] 25 mg PO DAILY Multivitamins, Thera [Multivitamin (formulary)] 1 tab PO DAILY Pioglitazone [Actos] 30 mg PO DAILY Discontinued Ibuprofen [Motrin Ib] 400 mg PO BID PRN PRN Reason: Pain Discharge Medication List allopurinoL [Zyloprim] 100 mg PO DAILY 05/23/16 [History] metFORMIN HCL ER [Glucophage XR] 1,000 mg PO BID 06/22/22 [History] Atorvastatin [Lipitor] 40 mg PO DAILY #30 tab 06/27/22 [Rx] Apixaban [Eliquis] 5 mg PO BID 07/10/23 [History] Chlorthalidone [Hygroton] 25 mg PO DAILY 07/10/23 [History] DULoxetine HCL [Cymbalta] 60 mg PO DAILY 12/07/24 [History] Furosemide [Lasix] 20 mg PO DAILY 12/07/24 [History] Multivitamins, Thera [Multivitamin (formulary)] 1 tab PO DAILY 02/21/25 [History] Pioglitazone [Actos] 30 mg PO DAILY 02/21/25 [History] Pregabalin [Lyrica] 50 mg PO BID 02/21/25 [History] carvediloL [Coreg*] 12.5 mg PO BID 02/21/25 [History] lisinopriL 40 mg PO DAILY 02/21/25 [History] Follow up Appointment(s)/Referral(s): Mojgan Acosta MD [Primary Care Provider] - 02/26/25 8:45 am (On [facility]) Jericho Ragland MD [STAFF PHYSICIAN] - 03/09/25 8:45 am Patient Instructions/Handouts: Rhabdomyolysis (DC) Activity/Diet/Wound Care/Special Instructions: Activity: As tolerated. Take breaks as needed. Diet: Heart healthy and carb consistent diet. Avoid salts, or foods with hidden salts such as canned or boxed foods and frozen dinners. Extra salt makes your heart work harder and traps the fluid in your body for longer. Special Instructions: Take all of your medications as directed and remember to keep all of your doctor's appointments and follow-up as needed. Recommend continuing to hold your furosemide (Lasix) throughout the weekend and may resume on Saturday03/01/25. As discussed at bedside, if you notice increasing swelling to lower extremities or shortness of breath/cough recommend resuming earlier. Thank you for allowing us to participate in your care, it was truly and honestly a pleasure having you for our patient!!! Stay stubborn!!! Discharge Disposition: HOME SELF-CARE
[2025-02-24 11:08] LABS: Glucose,Whole Blood 214 mg/dL (70-110)
[2025-02-24 11:24] VITALS: BP 181/82; RESP 16; TEMP 98.5
== END 2025-02-24 13:11 | disposition home or self-care (01) | DRG 564 ==
LOC: EC 09:41 → 3SCARD 11:23
PROVIDERS: ADMIT Student in an Organized Health Care Education/Training Program; ATTEND Student in an Organized Health Care Education/Training Program
DX: T79.6XXA Traumatic ischemia of muscle, initial encounter (principal); G93.41 Metabolic encephalopathy; I21.A1 Myocardial infarction type 2; I44.2 Atrioventricular block, complete; E11.9 Type 2 diabetes mellitus without complications; I48.0 Paroxysmal atrial fibrillation; E78.5 Hyperlipidemia, unspecified; E86.0 Dehydration; I11.0 Hypertensive heart disease with heart failure; I35.0 Nonrheumatic aortic (valve) stenosis; I50.22 Chronic systolic (congestive) heart failure; R74.01 Elevation of levels of liver transaminase levels; I25.10 Atherosclerotic heart disease of native coronary artery without angina pectoris; R19.7 Diarrhea, unspecified; M19.90 Unspecified osteoarthritis, unspecified site; E87.6 Hypokalemia; F17.200 Nicotine dependence, unspecified, uncomplicated; I08.3 Combined rheumatic disorders of mitral, aortic and tricuspid valves; M54.41 Lumbago with sciatica, right side; Z79.01 Long term (current) use of anticoagulants; Z79.82 Long term (current) use of aspirin; Z79.84 Long term (current) use of oral hypoglycemic drugs; Z79.899 Other long term (current) drug therapy; Z85.46 Personal history of malignant neoplasm of prostate; Z86.73 Personal history of transient ischemic attack (TIA), and cerebral infarction without residual deficits; Z87.442 Personal history of urinary calculi; Z90.79 Acquired absence of other genital organ(s); Z95.0 Presence of cardiac pacemaker
CPT/HCPCS: 36415; 70450; 71046; 80053; 80061; 81001; 82550; 83036; 83605; 83735; 83880; 84439; 84443; 84481; 84484; 85025; 85027; 85049; 85610; 85730; 87045; 87046; 87636; 93005; 93306; 96365; 96375; 99291

== ENCOUNTER → 2025-03-22 | Outpatient (CLI) | payer MEDICARE ==
[2025-03-22 10:47] VITALS: RESP 16
[2025-03-22 10:54] VITALS: BP 150/70; PULSE 60; TEMP 97.7
--- NOTE | 2025-03-24 07:31 | P.PAINPG ---
PQRS Measure Charge Sheet Comment: HISTORY OF PRESENT ILLNESS: A 79 yr old male w female caregiver at side presents today w severe and chronic LBP > 5 yrs secondary to L4-L5 decompression w fusion & hardware for evaluation s/p R TFESI L4-L5/ L5-S1 #1. Pt states he experienced 100 % pain relief x 4 wks s/p procedure. Pt states pain level is provoked at 1 /10 in intensity, constant, localized in the lumbar spine, predominantly axial, sharp in character w occasional shooting pain towards the R thigh to R foot. Pain is provoked by sitting from a supine position. Pain is alleviated by massage therapy semi monthly which since Fall 2023, physician guided home stretches daily since Summer 2023, visiting PO/OT 4 days weekly since Nov 2023, heat, medications, topical, use of a cane for ambulatory assistance, repositioning and rest . Pt admits to having prostate surgery and is having delvin rectal pain that is severe, constant, provoked with standing from a sitting position. Interventional procedures include L4-L5 Decompression/ Fusion, KECIA L5-S1 x1, R TFESI L4-L5/ L5-S1 x1 (03/07) Medications include Ibu, BioFreeze, Eliquis REVIEW OF ORGAN SYSTEMS: CONSTITUTIONAL: No fevers or chills. No recent weight loss. NEUROLOGICAL: + numbness and tingling along the distal extremities. No seizure disorders or headaches. MUSCULOSKELETAL: + pain PSYCHIATRIC: Denies current depression or suicidal thoughts. Physical Examinations : Constitutional : Cooperative , not in acute distress . Neurologic : Cranial nerve II to XII intact. No focal neurological deficits. Psychiatric : alert & oriented x 3. Matching mood & appropriate affect. Judgment & insight intact. Musculoskeletal : Cervical Spine Motor strength in the deltoid and biceps: Normal right side. Normal Left side Motor strength biceps and the wrist extensors: Normal right side . Normal left side Motor strength in the triceps muscle: Normal right side. Normal left side Deep tendon reflexes: Normal at the biceps. Normal at Brachioradialis. Normal at triceps Vertebral body tenderness to deep palpation over Cervical facet loading test: positive bilaterally Spurling test: positive bilaterally Neck distraction test: positive bilaterally Keiko sign: positive bilaterally Lumbar spine +Incisional scars intact Motor strength lower extremities ,thigh and legs 5/5 Right side , 5/5 Left side Deep tendon reflexes : Normal Knee Jerk. Normal Ankle Jerk Vertebral body tenderness over L5 Mojica Test positive R L4-L5/ L5-S1 Lumbar facet Loading Test: positive Right / positive Left Range of motion of the lumbar spine Flexion 30 degrees, extension 10 degrees Straight Leg Raise test: Left/ Right positive at degrees Yaa test: positive right / positive left. Severe tenderness over the Sacroiliac joint on the Right / Left sides Gaenslen test: positive bilaterally Seated flexion test: positive bilaterally. Sacral spine : Severe tenderness over the Sacroiliac joint: right side / left side Range of motion: Flexion of the lumbar spine <60 degrees Range of motion: Extension of the lumbar spine <20 degrees Gaenslen's Test positive Yaa test: positive right side / left side Thigh Thrust Test Sacral Thrust Test Imaging: CT scan non contrast of the lumbar spine from 04/29/2023 reviewed Assessment/ Plan : L4-L5 decompression/ fusion w hardware Will manage residual pain and may RTC on an as needed basis. All questions answered. I have spent greater than 30 minutes on patient care today. Dr Mendoza was available by phone for the evaluation of this patient. The time was used to review the medical records including relevant urine studies and Prescription history (MAPs), review of the available imaging, evaluation and examination of the patient, coordination of care with the medical staff and if applicable referring physicians, as well as creation of the medical record PQRS Narrative: Smoking Status Current some day smoker Hx Alcohol Use (MH) Yes Home Medications: Ambulatory Orders allopurinoL [Zyloprim] 100 mg PO DAILY 05/23/16 metFORMIN HCL ER [Glucophage XR] 1,000 mg PO BID 06/22/22 Atorvastatin [Lipitor] 40 mg PO DAILY #30 tab 06/27/22 Apixaban [Eliquis] 5 mg PO BID 07/10/23 Chlorthalidone [Hygroton] 25 mg PO DAILY 07/10/23 DULoxetine HCL [Cymbalta] 60 mg PO DAILY 12/07/24 Furosemide [Lasix] 20 mg PO DAILY 12/07/24 Multivitamins, Thera [Multivitamin (formulary)] 1 tab PO DAILY 02/21/25 Pioglitazone [Actos] 30 mg PO DAILY 02/21/25 Pregabalin [Lyrica] 50 mg PO BID 02/21/25 carvediloL [Coreg*] 12.5 mg PO BID 02/21/25 lisinopriL 40 mg PO DAILY 02/21/25 Controlled Substance Measures - Controlled Substance Measures Is patient prescribed a controlled substance at discharge?: No
== END ==
LOC: PNWHC3 10:22
PROVIDERS: ATTEND Specialist
DX: M47.816 Spondylosis without myelopathy or radiculopathy, lumbar region (principal); F17.200 Nicotine dependence, unspecified, uncomplicated; Z98.1 Arthrodesis status; Z88.1 Allergy status to other antibiotic agents; Z88.3 Allergy status to other anti-infective agents; Z91.018 Allergy to other foods
CPT/HCPCS: 99211